=== PATIENT | female | born 1950 | race Caucasian/White ===

== ENCOUNTER 2017-02-03 04:14 | Emergency (ER) | payer MEDICARE, SELFPAY ==
[2017-02-03] MEDS ORDERED: Nitrofurantoin Monohydrate/Macrocrystalline 100 MG Cap PO ONE (05:00)
[2017-02-03] MEDS ORDERED: Phenazopyridine 200 MG Tab PO ONE (05:01)
--- NOTE | 2017-02-03 05:08 | EDM.PDOC ---
ED HPI GENERAL MEDICAL PROBLEM - General Chief Complaint: Genitourinary Problem Stated Complaint: HAVING TROUBLE URINATING Time Seen by Provider: 02/03/17 04:25 Source of Information: Reports: Patient History Limitations: Reports: No Limitations - History of Present Illness INITIAL COMMENTS - FREE TEXT/NARRATIVE: HISTORY AND PHYSICAL: History of present illness: [66-year-old female with a history of urinary tract infections now complaining of frequency urgency and dysuria. Patient does mention that she feels like her void is incomplete with the aforementioned urinary discomfort as described. Denies fevers chills sweats or shaking chills. No back pain. No abdominal pain. Patient otherwise feels well Review of systems: As per history of present illness and below otherwise all systems reviewed and negative. Past medical history: As per history of present illness and as reviewed below otherwise noncontributory. Surgical history: As per history of present illness and as reviewed below otherwise noncontributory. Social history: No reported history of drug or alcohol abuse. Family history: As per history of present illness and as reviewed below otherwise noncontributory. Physical exam: Well-appearing patient smiling comfortable appearing. Nontender abdomen and pelvis no CVA tenderness. Benign exam HEENT: Normocephalic, atraumatic, pupils normal and symmetrical, supple neck, no meningismus, normal color Lungs: Normal and symmetrical chest wall excursion bilateral with no tachypnea or increased work of breathing, grossly normal chest exam Heart: No tachycardia in triage Abdomen: Normal-appearing, nondistended, no visible mass or asymmetry Pelvis: Normal-appearing Genitourinary: Deferred Rectal exam: Deferred Extremities: Atraumatic, normal use and range of motion, no visible evidence of gross neurovascular compromise Neuro: Awake, alert, oriented. Normal and appropriate mental status. Cranial nerves grossly unremarkable. Motor function normal. Nonfocal neurologic exam. Diagnostics: [UA] Therapeutics: [Macrobid and Pyridium] Impression: [UTI] Signs and symptoms consistent with UTI. Patient with concern regarding incomplete void however postvoid residual 26 mL on bladder scan. UA clearly positive for infection. Macrobid and Pyridium doses given in ED and prescriptions dispensed. No further workup or treatment indicated patient agrees with outpatient follow-up. Strict return precautions given] Definitive disposition and diagnosis as appropriate pending reevaluation and review of above. Vaginal Pain Score (Numeric/FACES): 3 - Related Data Allergies Allergy/AdvReac Type Severity Reaction Status Date / Time cephalexin Allergy Other Verified 07/11/16 06:35 Iodine and Iodide Containing Allergy Hives Verified 07/11/16 06:35 Produc Sulfa (Sulfonamide Allergy Other Verified 07/11/16 06:35 Antibiotics) Home Meds: Home Meds Atenolol 25 mg PO DAILY #90 tablet 02/03/16 [Rx] Clopidogrel [Plavix] 75 mg PO DAILY #90 tablet 02/03/16 [Rx] Lisinopril 10 mg PO DAILY #90 tablet 02/03/16 [Rx] Nitroglycerin [Nitrostat] 0.4 mg SL Q5M PRN 07/11/16 [History] Aspirin [Adult Low Dose Aspirin EC] 81 mg PO DAILY 02/03/17 [History] Isosorbide Dinitrate 0 mg PO DAILY 02/03/17 [History] Nitrofurantoin Monohyd/M-Cryst [Macrobid 100 mg Capsule] 100 mg PO BID #20 capsule 02/03/17 [Rx] Phenazopyridine HCl [Pyridium] 200 mg PO TID #6 tablet 02/03/17 [Rx] amLODIPine [Norvasc] 0 mg PO DAILY 02/03/17 [History] Past Medical History HEENT History: Reports: Cataract Cardiovascular History: Reports: CAD, High Cholesterol, Hypertension, [place], Stents Respiratory History: Reports: None Gastrointestinal History: Reports: None Genitourinary History: Reports: UTI, Recurrent 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 History: Reports: Fracture Neurological History: Reports: None Psychiatric History: Reports: None Endocrine/Metabolic History: Reports: Diabetes, Type II Hematologic History: Reports: None Immunologic History: Reports: None Oncologic (Cancer) History: Reports: None Dermatologic History: Reports: None - Infectious Disease History Infectious Disease History: Reports: Chicken Pox, Measles - Past Surgical History HEENT Surgical History: Reports: Cataract Surgery Cardiovascular Surgical History: Reports: Coronary Artery Stent Social & Family History - Family History Family Medical History: Noncontributory - Tobacco Use Smoking Status *Q: Former Smoker Years of Tobacco use: 2 Packs/Tins Daily: 2 Used Tobacco, but Quit: Yes Month Tobacco Last Used: age 30 Tobacco Use Comment: smoked for 3 yrs at age 27 - Caffeine Use Caffeine Use: Reports: Coffee - Recreational Drug Use Recreational Drug Use: No - Living Situation & Occupation Living situation: Reports: Occupation: Employed ED ROS GENERAL - Review of Systems Review Of Systems: See Below (History of present illness) ED EXAM, GENERAL - Physical Exam Exam: See Below (History of present illness) Course - Vital Signs Last Recorded V/S: Last Vital Signs Temp 36.9 C 02/03/17 04:23 Pulse 88 02/03/17 04:23 Resp 16 02/03/17 04:23 BP 174/114 H 02/03/17 04:23 Pulse Ox 98 02/03/17 04:23 - Orders/Labs/Meds Labs: Laboratory Tests 02/03/17 Range/Units 04:40 Urine Color YELLOW Urine Appearance CLOUDY Urine pH 5.0 (5.0-8.0) Ur Specific [place] 1.015 (1.001-1.035) Urine Protein TRACE (NEGATIVE) mg/dL Urine Glucose (UA) NEGATIVE (NEGATIVE) mg/dL Urine Ketones NEGATIVE (NEGATIVE) mg/dL Urine Occult Blood MODERATE (NEGATIVE) Urine Nitrite NEGATIVE (NEGATIVE) Urine Bilirubin NEGATIVE (NEGATIVE) Urine Urobilinogen 0.2 (<2.0) EU/dL Ur Leukocyte Esterase LARGE (NEGATIVE) Urine RBC 4-5 (0-2/HPF) Urine WBC TO NUMEROUS TO COUNT H (0-5/HPF) Ur Epithelial Cells OCCASIONAL (NONE-FEW) Urine Bacteria 2+ H (NEGATIVE) Departure - Departure Time of Disposition: 05:02 Disposition: Home, Self-Care 01 Condition: Good Clinical Impression: UTI (urinary tract infection) - Discharge Information Referrals: Yaron Chaudhari DO [Primary Care Provider] - Forms: ED Department Discharge Additional Instructions: You have a urinary tract infection. Finish antibiotic as prescribed. Take Pyridium 3 times a day as prescribed. During play of fluids and follow-up with your DrAilyn in one to 2 days. Return immediately for new severe or worsening symptoms which might suggest treatment failure such as back pain with fevers and /or vomiting
[2017-02-03 05:27] VITALS: BP 136/73
== END 2017-02-03 05:24 | disposition home or self-care (01) ==
LOC: MW.ED 04:14
DX: N39.0 Urinary tract infection, site not specified (principal); I10 Essential (primary) hypertension; I25.2 Old myocardial infarction; I25.10 Atherosclerotic heart disease of native coronary artery without angina pectoris; E78.00 Pure hypercholesterolemia, unspecified; E11.9 Type 2 diabetes mellitus without complications; Z79.02 Long term (current) use of antithrombotics/antiplatelets; Z79.82 Long term (current) use of aspirin; Z79.899 Other long term (current) drug therapy; Z88.2 Allergy status to sulfonamides; Z88.1 Allergy status to other antibiotic agents; Z88.8 Allergy status to other drugs, medicaments and biological substances; Z98.49 Cataract extraction status, unspecified eye; Z95.5 Presence of coronary angioplasty implant and graft; Z87.891 Personal history of nicotine dependence
CPT/HCPCS: 81001; 87086; 99283; A9270; 87088; 87186

== ENCOUNTER 2017-09-06 15:08 | Observation (INO) | payer MEDICARE ==
[2017-09-06] MEDS ORDERED: Sodium Chloride 0.9% 1,000 ML IV ONE (15:21)
[2017-09-06] MEDS ORDERED: Aspirin 81 MG Tab.Chew PO ONE (15:21)
[2017-09-06] MEDS ORDERED: Nitroglycerin 0.4 MG Tab.SL SL ONE (15:21)
--- NOTE | 2017-09-06 15:24 | EDM.PDOC ---
ED HPI GENERAL MEDICAL PROBLEM - General Chief Complaint: Chest Pain Stated Complaint: CHEST PAINS Time Seen by Provider: 09/06/17 15:23 Source of Information: Reports: Patient - History of Present Illness INITIAL COMMENTS - FREE TEXT/NARRATIVE: HISTORY AND PHYSICAL: History of present illness: Patient presents with chest pain my private vehicle Pain is 8 out of 10 initially with no radiation arm neck or jaw patient describes possibly some diaphoresis she had taken 3 nitroglycerin at home pain improved to a 2 out of 10 she waited until nearly 4:00 until coming in however she is in no distress she states pain is nearly resolved at this time show significant cardiac history with previous MS and she reports 11 stents that were placed Nausea vomiting chills sweats no shortness of breath headache dizziness palpitation no bowel or urine symptoms ] Review of systems: As per history of present illness and below otherwise all systems reviewed and negative. Past medical history: As per history of present illness and as reviewed below otherwise noncontributory. Surgical history: As per history of present illness and as reviewed below otherwise noncontributory. Social history: No reported history of drug or alcohol abuse. Family history: As per history of present illness and as reviewed below otherwise noncontributory. Physical exam: HEENT: Atraumatic, normocephalic, pupils reactive, negative for conjunctival pallor or scleral icterus, mucous membranes moist, throat clear, neck supple, nontender, trachea midline. Lungs: Clear to auscultation, breath sounds equal bilaterally, chest nontender. Heart: S1S2, regular, negative for clicks, rubs, or JVD. Abdomen: Soft, nondistended, nontender. Negative for masses or hepatosplenomegaly. Negative for costovertebral tenderness. Pelvis: Stable nontender. Genitourinary: Deferred. Rectal: Deferred. Extremities: Atraumatic, negative for cords or calf pain. Neurovascular unremarkable. Neuro: Awake, alert, oriented. Cranial nerves II through XII unremarkable. Cerebellum unremarkable. Motor and sensory unremarkable throughout. Exam nonfocal. Diagnostics: [CBC CMP cardiac enzymes EKG Chest 1 view ] Therapeutics: [1 L normal saline bolus Aspirin 324 mg chewable Nitroglycerin not provided as patient had taken 3 and pain is much improved Patient will be admitted to obs /telemetry ] Impression: [Acute coronary syndrome ] Definitive disposition and diagnosis as appropriate pending reevaluation and review of above. Middle Chest Pain Score (Numeric/FACES): 4 - Related Data Allergies Allergy/AdvReac Type Severity Reaction Status Date / Time cephalexin Allergy Other Verified 09/06/17 15:39 Iodine and Iodide Containing Allergy Hives Verified 09/06/17 15:39 Produc morphine Allergy Nausea and Verified 09/06/17 15:39 Vomiting Sulfa (Sulfonamide Allergy Other Verified 09/06/17 15:39 Antibiotics) Home Meds: Home Meds Atenolol 25 mg PO DAILY #90 tablet 02/03/16 [Rx] Clopidogrel [Plavix] 75 mg PO DAILY #90 tablet 02/03/16 [Rx] Lisinopril 10 mg PO DAILY #90 tablet 02/03/16 [Rx] Nitroglycerin [Nitrostat] 0.4 mg SL Q5M PRN 07/11/16 [History] Aspirin [Adult Low Dose Aspirin EC] 81 mg PO DAILY 02/03/17 [History] Isosorbide Dinitrate 0 mg PO DAILY 02/03/17 [History] Nitrofurantoin Monohyd/M-Cryst [Macrobid 100 mg Capsule] 100 mg PO BID #20 capsule 02/03/17 [Rx] Phenazopyridine HCl [Pyridium] 200 mg PO TID #6 tablet 02/03/17 [Rx] amLODIPine [Norvasc] 0 mg PO DAILY 02/03/17 [History] Past Medical History HEENT History: Reports: Cataract Cardiovascular History: Reports: CAD, High Cholesterol, Hypertension, [place], Stents Respiratory History: Reports: None Gastrointestinal History: Reports: None Genitourinary History: Reports: UTI, Recurrent 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: Reports: 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 Neurological History: Reports: None Psychiatric History: Reports: None Endocrine/Metabolic History: Reports: Diabetes, Type II Hematologic History: Reports: None Immunologic History: Reports: None Oncologic (Cancer) History: Reports: None Dermatologic History: Reports: None - Infectious Disease History Infectious Disease History: Reports: Chicken Pox, Measles - Past Surgical History HEENT Surgical History: Reports: Cataract Surgery Cardiovascular Surgical History: Reports: Coronary Artery Stent Social & Family History - Family History Family Medical History: Noncontributory - Tobacco Use Smoking Status *Q: Former Smoker Years of Tobacco use: 2 Packs/Tins Daily: 2 Used Tobacco, but Quit: Yes Month Tobacco Last Used: age 30 - Caffeine Use Caffeine Use: Reports: Coffee - Recreational Drug Use Recreational Drug Use: No - Living Situation & Occupation Living situation: Reports: Occupation: Employed ED ROS GENERAL - Review of Systems Review Of Systems: ROS reveals no pertinent complaints other than HPI. ED EXAM, GENERAL - Physical Exam Exam: See Below Course - Vital Signs Last Recorded V/S: Last Vital Signs Temp 97.7 F 09/06/17 15:12 Pulse 65 09/06/17 16:03 Resp 14 09/06/17 16:03 BP 151/77 H 09/06/17 16:03 Pulse Ox 100 09/06/17 16:03 - Orders/Labs/Meds Orders: Active Orders 24 hr Category Date Time Status EKG Documentation Completion [RC] STAT Care 09/06/17 15:21 Active UA W/MICROSCOPIC [URIN] Stat Lab 09/06/17 16:35 Received Labs: Laboratory Tests 09/06/17 09/06/17 Range/Units 15:34 15:34 WBC 3.52 L (4.0-11.0) K/uL RBC 3.74 L (4.30-5.90) M/uL Hgb 13.4 (12.0-16.0) g/dL Hct 37.7 (36.0-46.0) % MCV 100.8 H (80.0-98.0) fL MCH 35.8 H (27.0-32.0) pg MCHC 35.5 (31.0-37.0) g/dL RDW Std Deviation 46.1 (28.0-62.0) fl RDW Coeff of Heide 13 (11.0-15.0) % Plt Count 116 L (150-400) K/uL MPV 9.30 (7.40-12.00) fL Neut % (Auto) 59.4 (48.0-80.0) % Lymph % (Auto) 28.7 (16.0-40.0) % Sac % (Auto) 6.8 (0.0-15.0) % Eos % (Auto) 4.8 (0.0-7.0) % Baso % (Auto) 0.3 (0.0-1.5) % Neut # (Auto) 2.1 (1.4-5.7) K/uL Lymph # (Auto) 1.0 (0.6-2.4) K/uL Sac # (Auto) 0.2 (0.0-0.8) K/uL Eos # (Auto) 0.2 (0.0-0.7) K/uL Baso # (Auto) 0.0 (0.0-0.1) K/uL Nucleated RBC % 0.0 /100WBC Nucleated RBCs # 0 K/uL Sodium 136 (136-146) mmol/L Potassium 4.6 (3.5-5.1) mmol/L Chloride 102 (98-110) mmol/L Carbon Dioxide 21 (21-31) mmol/L BUN 14 (6.0-23.0) mg/dL Creatinine 1.1 (0.6-1.5) mg/dL Est Cr Clr Drug Dosing 36.62 mL/min Estimated GFR (MDRD) 49.8 ml/min Glucose 167 H (60-110) mg/dL Calcium 9.3 (8.8-10.8) mg/dL Total Bilirubin 0.8 (0.1-1.5) mg/dL AST 156 H (5-40) IU/L ALT 121 H (8-54) IU/L Alkaline Phosphatase 73 (40-150) Creatine Kinase 224 (9-236) IU/L CK-MB (CK-2) 2.9 (0-6.6) ng/ml Troponin I < 0.10 (0.0-0.29) NG/ML Total Protein 7.3 (6.0-8.0) g/dL Albumin 4.3 (3.4-4.8) g/dL Globulin 3.0 (2.0-3.5) g/dL Albumin/Globulin Ratio 1.4 (1.3-2.8) Meds: Medications Discontinued Medications Generic Name Dose Route Start Last Admin Trade Name Freq PRN Reason Stop Dose Admin Aspirin 324 mg 09/06/17 15:21 09/06/17 15:37 Aspirin PO 09/06/17 15:22 324 mg ONETIME ONE Administration Sodium Chloride 1,000 mls @ 999 mls/hr 09/06/17 15:21 09/06/17 15:37 Normal Saline IV 09/06/17 16:21 999 mls/hr STAT ONE Administration Morphine Sulfate 2 mg 09/06/17 15:28 09/06/17 15:37 Morphine IVPUSH 09/06/17 15:29 2 mg ONETIME ONE Administration Nitroglycerin 0.4 mg 09/06/17 15:21 09/06/17 15:40 Nitrostat SL 09/06/17 15:22 Not Given ONETIME ONE Pantoprazole Sodium 80 mg 09/06/17 15:52 09/06/17 16:45 Protonix Iv IVPUSH 09/06/17 15:53 80 mg .BOLUS ONE Administration Departure - Departure Time of Disposition: 17:03 Disposition: Refer to Observation Condition: Fair Clinical Impression: ACS (acute coronary syndrome) - Discharge Information Referrals: Yaron Chaudhari DO [Primary Care Provider] - Forms: ED Department Discharge - My Orders Last 24 Hours: My Active Orders 09/06/17 15:21 EKG Documentation Completion [RC] STAT 09/06/17 16:35 UA W/MICROSCOPIC [URIN] Stat - Assessment/Plan Last 24 Hours: My Active Orders 09/06/17 15:21 EKG Documentation Completion [RC] STAT 09/06/17 16:35 UA W/MICROSCOPIC [URIN] Stat
[2017-09-06] MEDS ORDERED: Morphine 2 MG/ML Syringe IVPUSH ONE (15:28)
[2017-09-06] MEDS ORDERED: Pantoprazole 40 MG Vial IVPUSH ONE (15:52)
[2017-09-06 16:06] LABS: CHLORIDE,CL 102 mmol/L (98-110); SODIUM,NA 136 mmol/L (136-146)
--- NOTE | 2017-09-06 16:15 | CR ---
EXAMINATION: Portable chest radiograph. HISTORY: Pain. FINDINGS: The trachea is midline. The cardiomediastinal silhouette is within normal limits. No pulmonary infilt rates, effusions or pneumothorax. Osseous structures appear unremarkable. IMPRESSION: No acute cardiopulmonary process.
[2017-09-06] MEDS ORDERED: Morphine 2 MG/ML Syringe IVPUSH PRN (18:42)
--- NOTE | 2017-09-06 18:51 | PCM.HP ---
H&P History of Present Illness - General Date of Service: 09/06/17 Admit Problem/Dx: Admission Diagnosis/Problem Admission Diagnosis/Problem Acute coronary syndrome Source of Information: Patient History Limitations: Reports: No Limitations - History of Present Illness Initial Comments - Free Text/Narative: 66F with a past medical history of coronary artery disease, [place], multiple stent placement presented to the ER today with a chief complaint of chest pain. As per the patient, chest pain began at around 1pm this afternoon located centrally , non-radiating, rated an 8/10 on severity. She took 3 nitro's and that brought the pain down to a 2/10. She then arrived to ER via private vehicle. She was given aspirin in the ER. EKG unremarkable, first set of trop negative. As per the patient when asked, she denied any chest pain, palpitations, shortness of breath, numbness or tingling. Had no complaints. Middle Chest Pain Score (Numeric/FACES): 4 - Related Data Allergies/Adverse Reactions: Allergies Allergy/AdvReac Type Severity Reaction Status Date / Time cephalexin Allergy Other Verified 09/06/17 15:39 Iodine and Iodide Containing Allergy Hives Verified 09/06/17 15:39 Produc morphine Allergy Nausea and Verified 09/06/17 15:39 Vomiting Sulfa (Sulfonamide Allergy Other Verified 09/06/17 15:39 Antibiotics) Home Medications: Home Meds Atenolol 25 mg PO DAILY #90 tablet 02/03/16 [Rx] Clopidogrel [Plavix] 75 mg PO DAILY #90 tablet 02/03/16 [Rx] Lisinopril 10 mg PO DAILY #90 tablet 02/03/16 [Rx] Nitroglycerin [Nitrostat] 0.4 mg SL Q5M PRN 07/11/16 [History] Aspirin [Adult Low Dose Aspirin EC] 81 mg PO DAILY 02/03/17 [History] Isosorbide Dinitrate 0 mg PO DAILY 02/03/17 [History] Nitrofurantoin Monohyd/M-Cryst [Macrobid 100 mg Capsule] 100 mg PO BID #20 capsule 02/03/17 [Rx] Phenazopyridine HCl [Pyridium] 200 mg PO TID #6 tablet 02/03/17 [Rx] amLODIPine [Norvasc] 0 mg PO DAILY 02/03/17 [History] Past Medical History HEENT History: Reports: Cataract Cardiovascular History: Reports: CAD, High Cholesterol, Hypertension, [place], Stents Respiratory History: Reports: None Gastrointestinal History: Reports: None Genitourinary History: Reports: UTI, Recurrent 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 Neurological History: Reports: None Psychiatric History: Reports: None Endocrine/Metabolic History: Reports: Diabetes, Type II Hematologic History: Reports: None Immunologic History: Reports: None Oncologic (Cancer) History: Reports: None Dermatologic History: Reports: None - Infectious Disease History Infectious Disease History: Reports: Chicken Pox, Measles - Past Surgical History HEENT Surgical History: Reports: Cataract Surgery Cardiovascular Surgical History: Reports: Coronary Artery Stent Social & Family History - Family History Family Medical History: Noncontributory - Tobacco Use Smoking Status *Q: Former Smoker Years of Tobacco use: 2 Packs/Tins Daily: 2 Used Tobacco, but Quit: Yes Month Tobacco Last Used: at age 30 Second Hand Smoke Exposure: No - Caffeine Use Caffeine Use: Reports: Coffee - Recreational Drug Use Recreational Drug Use: No - Living Situation & Occupation Living situation: Reports: Occupation: Employed H&P Review of Systems - Review of Systems: Review Of Systems: See Below General: Reports: No Symptoms HEENT: Reports: No Symptoms Pulmonary: Reports: Shortness of Breath Cardiovascular: Reports: Chest Pain. Denies: Edema Gastrointestinal: Reports: No Symptoms Genitourinary: Reports: No Symptoms 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: Reports: No Symptoms Skin: Reports: No Symptoms Psychiatric: Reports: No Symptoms Neurological: Reports: No Symptoms Hematologic/Lymphatic: Reports: No Symptoms Immunologic: Reports: No Symptoms Exam - Exam Exam: See Below - Vital Signs Vital Signs: Last Vital Signs Temp 36.3 C 09/06/17 17:49 Pulse 61 09/06/17 17:49 Resp 16 09/06/17 17:49 BP 163/81 H 09/06/17 17:49 Pulse Ox 100 09/06/17 17:49 Weight: 82.781 kg - Exam General: Alert, Oriented HEENT: Conjunctiva Clear, EACs Clear, EOMI Neck: Supple, Trachea Midline Lungs: Clear to Auscultation, Normal Respiratory Effort Cardiovascular: Regular Rate, Regular Rhythm, Normal S1, Normal S2 GI/Abdominal Exam: Normal Bowel Sounds, Soft. No: Hepatomegaly, Splenomegaly Back Exam: Normal Inspection, Full Range of Motion, CVA Tenderness (R) Extremities: Normal Inspection, Normal Range of Motion, No Pedal Edema, Normal Capillary Refill Peripheral Pulses: 3+: Dorsalis Pedis (L), Dorsalis Pedis (R) Skin: Warm Neurological: Cranial Nerves Intact Neuro Extensive - Mental Status: Alert, Oriented x3 Psychiatric: Alert, Normal Affect, Normal Mood - Patient Data Result Diagrams: 09/06/17 15:34 09/06/17 15:34 *Q Meaningful Use (ADM) - VTE *Q VTE Criteria *Q: - Stroke *Q Stroke Criteria *Q: - AMI *Q AMI Criteria *Q: Problem List Initiated/Reviewed/Updated: Yes Orders Last 24hrs: Active Orders 24 hr Category Date Time Status Oxygen Therapy [RC] PRN Care 09/06/17 18:42 Ordered Telemetry Monitoring [Cardiac Monitoring] [RC] . Care 09/06/17 18:45 Ordered DIRECTED Up ad Darlene [RC] ASDIRECTED Care 09/06/17 18:42 Ordered VTE/DVT Education [RC] PER UNIT ROUTINE Care 09/06/17 18:42 Ordered Vital Signs [RC] Q4H Care 09/06/17 18:42 Ordered Heart Healthy Diet [DIET] Diet 09/06/17 Breakfast Ordered BASIC METABOLIC PANEL,BMP [CHEM] AM Lab 09/07/17 05:11 Ordered CBC WITH AUTO DIFF [HEME] AM Lab 09/07/17 05:11 Ordered TROPONIN I [CHEM] Q6H Lab 09/06/17 18:42 Ordered TROPONIN I [CHEM] Q6H Lab 09/07/17 00:42 Ordered TROPONIN I [CHEM] Q6H Lab 09/07/17 06:42 Ordered Enoxaparin [Lovenox] Med 09/06/17 18:45 Ordered 40 mg SUBCUT DAILY Morphine Med 09/06/17 18:42 Ordered 2 mg IVPUSH Q2H PRN Resuscitation Status Routine Resus Stat 09/06/17 18:42 Ordered Assessment/Plan Comment:: Assessment: #1. ACS rule out #2. Chest pain that is resolved #3. History of coronary artery disease, [place], multiple stent placement #4. Thrombocytopenia #5. Elevated LFTs Plan: #1. Admit to the floor for observation. Full code #2. Troponin 3 every 6 hours #3. Continuous telemetry. Vital signs per floor routine. Cardiac diet. Up ad darlene. Lovenox for DVT prophylaxis. #4. Continue home medications #5. Hepatitis panel, right upper quadrant ultrasound for elevated LFTs
[2017-09-06] MEDS ORDERED: Nitroglycerin 0.4 MG Tab.SL SL PRN (18:54)
[2017-09-06] MEDS: Enoxaparin 40 MG/0.4 ML Syringe SUBCUT SCH (19:28)
[2017-09-06] MEDS: Phenazopyridine 200 MG Tab PO SCH (22:07)
[2017-09-07 03:52] LABS: CHLORIDE,CL 109 mmol/L (98-110); SODIUM,NA 139 mmol/L (136-146)
[2017-09-07] MEDS: Phenazopyridine 200 MG Tab PO SCH (05:12)
[2017-09-07] MEDS ORDERED: Clopidogrel 75 MG Tab PO SCH (09:00)
[2017-09-07] MEDS ORDERED: Lisinopril 10 MG Tab PO SCH (09:00)
[2017-09-07] MEDS ORDERED: amLODIPine 5 MG Tab PO SCH (09:00)
[2017-09-07] MEDS ORDERED: Atenolol 25 MG Tab PO SCH (09:00)
[2017-09-07 09:23] VITALS: BP 128/71
[2017-09-07] MEDS: Enoxaparin 40 MG/0.4 ML Syringe SUBCUT SCH (09:23)
--- NOTE | 2017-09-07 16:50 | US ---
EXAM DATE: 09/06/17 PATIENT'S AGE: 66 Patient: TANJA NEVILLE Facility: [place], [place] Site . Site : [id number] Study: US Abdomen [id number]/[id number] 8:25:29 AM Ordering Physician: Jenae Nielson Final Report: INDICATION: Right upper quadrant pain. Elevated liver function tests. TECHNIQUE: Ultrasound abdomen limited. Sonographic images of the right upper quadrant were obtained using kwong-scale and color Doppler images. COMPARISON: CT abdomen pelvis August 27, 2017. FINDINGS: Liver: Normal in size. Hyperechoic echotexture. No masses. No intrahepatic biliary dilatation. Gallbladder: Multiple gallbladder stones are present. No sign of gallbladder wall thickening or pericholecystic fluid. Common bile duct: 4 mm. Pancreas: Not well visualized secondary to bowel gas. Right kidney: Normal in size. Normal echotexture and cortex. No masses, stones, or hydronephrosis. Vasculature: Proximal abdominal aorta and IVC are normal. IMPRESSION: Cholelithiasis without further evidence of cholecystitis. Hepatic steatosis. The remainder of the exam is unremarkable. Dictated by Jony Hunt MD @ Sep 07 2017 8:29AM (Electronic Signature) Report Signed by Proxy. CATHIE
--- NOTE | 2017-09-08 10:32 | PCM.DCSUM1 ---
Discharge Summary - Hospital Course Free Text/Narrative:: Admission date: September 06, 2017 Discharge date September 07, 2017 Admission diagnosis: #1. ACS rule out #2. History of coronary artery disease, SC, stent placement #3. Elevated LFTs Discharge diagnosis: #1. ACS ruled out #2. Cholelithiasis without gallbladder wall thickening #3. Elevated LFTs Hospital course: This is a 66-year-old female with an extensive cardiovascular history that presented to the emergency department on 06 September complaining of chest pain. This patient had initial negative troponins along with an unremarkable EKG and was admitted to hospital for observation. Troponins were trended and remained negative. After nitroglycerin was taken prior to arrival, the chest pain was resolved and did not recur throughout her hospital stay. She was discharged ultimately since she was symptomatic free and with reassuring labs. On arrival, the patient had elevated liver function tests all right upper quadrant ultrasound was ordered. This came back positive for multiple gallstones however without any cholecystitis. Given that this patient was not complaining of abdominal pain and to the patient's knowledge, this is a chronic finding. We can manage this issue as an outpatient. Follow-up: #1. Cardiology #2. Primary care provider Dr. Tellez Discharge instructions: Patient was advised to return to seek medical attention if she reexperiences chest pain, shortness of breath, palpitations, nausea or vomiting. - Discharge Data Discharge Date: 09/07/17 Discharge Disposition: Home, Self-Care 01 Condition: Fair - Patient Instructions Diet: Heart Healthy Diet Activity: As Tolerated Notify Provider of: Fever, Increased Pain, Swelling and Redness, Nausea and/or Vomiting - Discharge Plan Home Medications: Home Meds Atenolol 25 mg PO DAILY #90 tablet 02/03/16 [Rx] Clopidogrel [Plavix] 75 mg PO DAILY #90 tablet 02/03/16 [Rx] Lisinopril 10 mg PO DAILY #90 tablet 02/03/16 [Rx] Nitroglycerin [Nitrostat] 0.4 mg SL Q5M PRN 07/11/16 [History] Aspirin [Adult Low Dose Aspirin EC] 81 mg PO DAILY 02/03/17 [History] Isosorbide Dinitrate 0 mg PO DAILY 02/03/17 [History] Nitrofurantoin Monohyd/M-Cryst [Macrobid 100 mg Capsule] 100 mg PO BID #20 capsule 02/03/17 [Rx] Phenazopyridine HCl [Pyridium] 200 mg PO TID #6 tablet 02/03/17 [Rx] amLODIPine [Norvasc] 5 mg PO DAILY 02/03/17 [History] Patient Handouts: Acute Coronary Syndrome Referrals: [facility] [Outside] Delroy Tellez MD [Resident] - 09/16/17 2:30 pm - Discharge Summary/Plan Comment Discharge Summary/Plan Comment: Admission date: September 06, 2017 Discharge date September 07, 2017 Admission diagnosis: #1. ACS rule out #2. History of coronary artery disease, SC, stent placement #3. Elevated LFTs Discharge diagnosis: #1. ACS ruled out #2. Cholelithiasis without gallbladder wall thickening #3. Elevated LFTs Hospital course: This is a 66-year-old female with an extensive cardiovascular history that presented to the emergency department on 06 September complaining of chest pain. This patient had initial negative troponins along with an unremarkable EKG and was admitted to hospital for observation. Troponins were trended and remained negative. After nitroglycerin was taken prior to arrival, the chest pain was resolved and did not recur throughout her hospital stay. She was discharged ultimately since she was symptomatic free and with reassuring labs. On arrival, the patient had elevated liver function tests all right upper quadrant ultrasound was ordered. This came back positive for multiple gallstones however without any cholecystitis. Given that this patient was not complaining of abdominal pain and to the patient's knowledge, this is a chronic finding. We can manage this issue as an outpatient. Follow-up: #1. Cardiology #2. Primary care provider Dr. Tellez Discharge instructions: Patient was advised to return to seek medical attention if she reexperiences chest pain, shortness of breath, palpitations, nausea or vomiting. - Patient Data Vitals - Most Recent: Last Vital Signs Temp 36.6 C 09/07/17 08:00 Pulse 73 09/07/17 09:21 Resp 18 09/07/17 08:00 BP 128/71 09/07/17 09:22 Pulse Ox 99 09/07/17 08:00 Weight - Most Recent: 82.781 kg Med Orders - Current: Current Medications Discontinued Medications Amlodipine Besylate (Norvasc) 5 mg PO DAILY BEN Last Admin: 09/07/17 09:22 Dose: 5 mg Aspirin (Aspirin) 324 mg PO ONETIME ONE Stop: 09/06/17 15:22 Last Admin: 09/06/17 15:37 Dose: 324 mg Atenolol (Tenormin) 25 mg PO DAILY [facility] Last Admin: 09/07/17 09:21 Dose: 25 mg Clopidogrel Bisulfate (Plavix) 75 mg PO DAILY [facility] Last Admin: 09/07/17 09:21 Dose: 75 mg Enoxaparin Sodium (Lovenox) 40 mg SUBCUT DAILY [facility] Last Admin: 09/07/17 09:23 Dose: Not Given Sodium Chloride (Normal Saline) 1,000 mls @ 999 mls/hr IV STAT ONE Stop: 09/06/17 16:21 Last Admin: 09/06/17 15:37 Dose: 999 mls/hr Lisinopril (Prinivil) 10 mg PO DAILY [facility] Last Admin: 09/07/17 09:21 Dose: 10 mg Morphine Sulfate (Morphine) 2 mg IVPUSH ONETIME ONE Stop: 09/06/17 15:29 Last Admin: 09/06/17 15:37 Dose: 2 mg Morphine Sulfate (Morphine) 2 mg IVPUSH Q2H PRN PRN Reason: Pain (severe 7-10) Stop: 09/07/17 18:43 Nitroglycerin (Nitrostat) 0.4 mg SL ONETIME ONE Stop: 09/06/17 15:22 Last Admin: 09/06/17 15:40 Dose: Not Given Nitroglycerin (Nitrostat) 0.4 mg SL Q5M PRN PRN Reason: Chest Pain Pantoprazole Sodium (Protonix Iv) 80 mg IVPUSH .BOLUS ONE Stop: 09/06/17 15:53 Last Admin: 09/06/17 16:45 Dose: 80 mg Phenazopyridine HCl (Pyridium) 200 mg PO TID [facility] Last Admin: 09/07/17 05:12 Dose: Not Given *Q Meaningful Use (DIS) - VTE *Q VTE Criteria *Q: - Stroke *Q Stroke Criteria *Q: - AMI *Q AMI Criteria *Q:
== END 2017-09-07 11:24 | disposition home or self-care (01) ==
LOC: MW.ED 15:08 → MW.MS 17:12
PROVIDERS: ADMIT Internal Medicine; ATTEND Internal Medicine
DX: R07.9 Chest pain, unspecified (principal); K80.20 Calculus of gallbladder without cholecystitis without obstruction; R94.5 Abnormal results of liver function studies; I25.10 Atherosclerotic heart disease of native coronary artery without angina pectoris; I25.2 Old myocardial infarction; E78.00 Pure hypercholesterolemia, unspecified; I10 Essential (primary) hypertension; D69.6 Thrombocytopenia, unspecified; Z79.899 Other long term (current) drug therapy; Z79.02 Long term (current) use of antithrombotics/antiplatelets; Z79.82 Long term (current) use of aspirin; Z95.5 Presence of coronary angioplasty implant and graft; Z88.5 Allergy status to narcotic agent; Z88.2 Allergy status to sulfonamides; Z91.041 Radiographic dye allergy status; Z87.891 Personal history of nicotine dependence
CPT/HCPCS: 36415; 71045; 76705; 80048; 80053; 81001; 82550; 82553; 84484; 85025; 93005; 96361; 96372; 96374; 96375; 99285; A9270; C9113; G0378; J1650; J2270; J7040; 99284

== ENCOUNTER 2018-01-15 17:50 | Emergency (ER) | payer MEDICARE ==
--- NOTE | 2018-01-15 18:19 | EDM.PDOC ---
<Gertrudis Siegel - Last Filed: 01/15/18 18:53> ED HPI GENERAL MEDICAL PROBLEM - General Chief Complaint: Genitourinary Problem Stated Complaint: POSSIBLE UTI Time Seen by Provider: 01/15/18 18:14 - History of Present Illness INITIAL COMMENTS - FREE TEXT/NARRATIVE: HISTORY AND PHYSICAL: History of present illness: The patient is a 67-year-old female who follows in our clinics and has a history of having UTIs in the past and presents with dysuria and urgency as well as difficulty passing her urine that started yesterday. The patient denies any fever chills abdominal pain vomiting or diarrhea and has no back pain or flank pain and actually has no suprapubic pain either. She says that when she goes to the bathroom it is difficult initiating the stream and then when it starts to pass it is incredibly painful and bautista. She's not had hematuria. The patient went through menopause and did not have any gynecologic surgery that she admits to me. She's been drinking fluids and says this feels similar to prior episodes. Review of systems: As per history of present illness and below otherwise all systems reviewed and negative. Past medical history: As per history of present illness and as reviewed below otherwise noncontributory. Surgical history: As per history of present illness and as reviewed below otherwise noncontributory. Social history: No reported history of drug or alcohol abuse. Family history: As per history of present illness and as reviewed below otherwise noncontributory. Physical exam: General: Well-developed well-nourished female who is nontoxic and vital signs are reviewed by me HEENT: Atraumatic, normocephalic, negative for conjunctival pallor or scleral icterus, mucous membranes moist, throat clear, neck supple, nontender, trachea midline. Lungs: Clear to auscultation, breath sounds equal bilaterally, chest nontender. Heart: S1S2, regular rate and rhythm no overt murmurs Abdomen: Soft, nondistended, nontender. Lightly hypoactive bowel sounds Negative for costovertebral tenderness. Pelvis: Stable nontender. Genitourinary: Deferred. Rectal: Deferred. Extremities: Atraumatic, negative for cords or calf pain. Neurovascular unremarkable. Neuro: Awake, alert, oriented. Cranial nerves II through XII unremarkable. Cerebellum unremarkable. Motor and sensory unremarkable throughout. Exam nonfocal. Diagnostics: UA urine culture, bladder scan to be performed if patient is unable to produce urine for testing Therapeutics: Case endorsed to JOSE ALFREDO Vargas at 7 PM to follow-up testing results and disposition the patient with care plan. Impression: Dysuria Definitive disposition and diagnosis as appropriate pending reevaluation and review of above. - Related Data Allergies Allergy/AdvReac Type Severity Reaction Status Date / Time cephalexin Allergy Other Verified 01/15/18 18:04 Iodine and Iodide Containing Allergy Hives Verified 01/15/18 18:04 Produc morphine Allergy Nausea and Verified 01/15/18 18:04 Vomiting Sulfa (Sulfonamide Allergy Other Verified 01/15/18 18:04 Antibiotics) Home Meds: Home Meds Atenolol 25 mg PO DAILY #90 tablet 02/03/16 [Rx] Clopidogrel [Plavix] 75 mg PO DAILY #90 tablet 02/03/16 [Rx] Lisinopril 10 mg PO DAILY #90 tablet 02/03/16 [Rx] Nitroglycerin [Nitrostat] 0.4 mg SL Q5M PRN 07/11/16 [History] Aspirin [Adult Low Dose Aspirin EC] 81 mg PO DAILY 02/03/17 [History] Isosorbide Dinitrate 0 mg PO DAILY 02/03/17 [History] Nitrofurantoin Monohyd/M-Cryst [Macrobid 100 mg Capsule] 100 mg PO BID #20 capsule 02/03/17 [Rx] Phenazopyridine HCl [Pyridium] 200 mg PO TID #6 tablet 02/03/17 [Rx] amLODIPine [Norvasc] 5 mg PO DAILY 02/03/17 [History] Ciprofloxacin HCl [Cipro] 500 mg PO BID #10 tablet 01/15/18 [Rx] Past Medical History HEENT History: Reports: Cataract Cardiovascular History: Reports: CAD, High Cholesterol, Hypertension, [place], Stents Respiratory History: Reports: None Gastrointestinal History: Reports: None Genitourinary History: Reports: UTI, Recurrent 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: Reports: Fracture Neurological History: Reports: None Psychiatric History: Reports: None Endocrine/Metabolic History: Reports: Diabetes, Type II Hematologic History: Reports: None Immunologic History: Reports: None Oncologic (Cancer) History: Reports: None Dermatologic History: Reports: None - Infectious Disease History Infectious Disease History: Reports: Chicken Pox, Measles - Past Surgical History HEENT Surgical History: Reports: Cataract Surgery Cardiovascular Surgical History: Reports: Coronary Artery Stent Social & Family History - Family History Family Medical History: Noncontributory - Caffeine Use Caffeine Use: Reports: Coffee - Living Situation & Occupation Living situation: Reports: Occupation: Employed ED ROS GENERAL - Review of Systems Review Of Systems: ROS reveals no pertinent complaints other than HPI. ED EXAM, GENERAL - Physical Exam Exam: See Below (See dictation) Course - Vital Signs Last Recorded V/S: Last Vital Signs Temp 36.5 C 01/15/18 18:06 Pulse 76 01/15/18 18:06 Resp 18 01/15/18 18:06 BP 138/66 01/15/18 18:06 Pulse Ox 97 01/15/18 18:06 - Orders/Labs/Meds Orders: Active Orders 24 hr Category Date Time Status Bladder Scan [RC] ONETIME Care 01/15/18 18:39 Active CULTURE URINE [RM] Stat Lab 01/15/18 18:50 Ordered UA W/MICROSCOPIC [URIN] Stat Lab 01/15/18 18:50 Ordered Labs: Laboratory Tests 01/15/18 Range/Units 18:50 Urine Color YELLOW Urine Appearance CLEAR Urine pH 6.0 (5.0-8.0) Ur Specific [place] 1.015 (1.001-1.035) Urine Protein NEGATIVE (NEGATIVE) mg/dL Urine Glucose (UA) NEGATIVE (NEGATIVE) mg/dL Urine Ketones NEGATIVE (NEGATIVE) mg/dL Urine Occult Blood NEGATIVE (NEGATIVE) Urine Nitrite NEGATIVE (NEGATIVE) Urine Bilirubin NEGATIVE (NEGATIVE) Urine Urobilinogen 0.2 (<2.0) EU/dL Ur Leukocyte Esterase MODERATE (NEGATIVE) Urine RBC 0-1 (0-2/HPF) Urine WBC 12-15 (0-5/HPF) Ur Epithelial Cells MODERATE (NONE-FEW) Urine Bacteria 2+ H (NEGATIVE) Departure - Departure Disposition: Home, Self-Care 01 Condition: Good Clinical Impression: Dysuria, UTI, Urinary tract infectious disease - Discharge Information Prescriptions: Ciprofloxacin HCl [Cipro] 500 mg PO BID #10 tablet Instructions: Urinary Tract Infection, Adult Referrals: Delroy Tellez MD [Primary Care Provider] - Forms: ED Department Discharge Additional Instructions: The following information is given to patients seen in the emergency department who are being discharged to home. This information is to outline your options for follow-up care. We provide all patients seen in our emergency department with a follow-up referral. The need for follow-up, as well as the timing and circumstances, are variable depending upon the specifics of your emergency department visit. If you don't have a primary care physician on staff, we will provide you with a referral. We always advise you to contact your personal physician following an emergency department visit to inform them of the circumstance of the visit and for follow-up with them and/or the need for any referrals to a consulting specialist. The emergency department will also refer you to a specialist when appropriate. This referral assures that you have the opportunity for followup care with a specialist. All of these measure are taken in an effort to provide you with optimal care, which includes your followup. Under all circumstances we always encourage you to contact your private physician who remains a resource for coordinating your care. When calling for followup care, please make the office aware that this follow-up is from your recent emergency room visit. If for any reason you are refused follow-up, please contact the [facility] emergency department at and ask to speak to the emergency department charge nurse. [facility] Primary care- Internal Medicine and Family [address] [address] Please push hydration and contact her provider in the clinic for follow-up care next week. Return to ER as needed and as discussed. <Alicia Cabrera - Last Filed: 01/15/18 19:10> Departure - Departure Time of Disposition: 19:09 Condition: Good
[2018-01-15 19:19] VITALS: BP 142/87
== END 2018-01-15 19:21 | disposition home or self-care (01) ==
LOC: MW.ED 17:50
DX: N39.0 Urinary tract infection, site not specified (principal); E78.00 Pure hypercholesterolemia, unspecified; I10 Essential (primary) hypertension; I25.2 Old myocardial infarction; I25.10 Atherosclerotic heart disease of native coronary artery without angina pectoris; Z88.1 Allergy status to other antibiotic agents; Z91.09 Other allergy status, other than to drugs and biological substances; Z88.2 Allergy status to sulfonamides; Z88.5 Allergy status to narcotic agent; Z79.899 Other long term (current) drug therapy; Z87.440 Personal history of urinary (tract) infections
CPT/HCPCS: 81001; 87086; 99283

== ENCOUNTER 2019-04-17 02:34 | Observation (INO) | payer MEDICAID, MEDICARE ==
[2019-04-17] MEDS ORDERED: Aspirin 81 MG Tab.Chew PO ONE (02:35)
--- NOTE | 2019-04-17 02:37 | EDM.PDOC ---
ED HPI GENERAL MEDICAL PROBLEM - General Chief Complaint: Chest Pain Stated Complaint: CHEST PAIN Time Seen by Provider: 04/17/19 02:36 Source of Information: Reports: Patient - History of Present Illness INITIAL COMMENTS - FREE TEXT/NARRATIVE: HISTORY AND PHYSICAL: History of present illness: [Patient presents with chest pain 4 out of 10 radiating to the left shoulder, states initially pain awoke her from sleep at midnight tonight, she does have history of previous PA with stenting performed in 2007 She did take 2 nitroglycerin at home which improved symptoms, on arrival here she did receive aspirin and one more nitroglycerin with resolution of pain/ pressure no apparent distress no fever nausea vomiting chills sweats no current chest pain shortness breath no diaphoresis ] Review of systems: As per history of present illness and below otherwise all systems reviewed and negative. Past medical history: As per history of present illness and as reviewed below otherwise noncontributory. Surgical history: As per history of present illness and as reviewed below otherwise noncontributory. Social history: No reported history of drug or alcohol abuse. Family history: As per history of present illness and as reviewed below otherwise noncontributory. Physical exam: HEENT: Atraumatic, normocephalic, pupils reactive, negative for conjunctival pallor or scleral icterus, mucous membranes moist, throat clear, neck supple, nontender, trachea midline. Lungs: Clear to auscultation, breath sounds equal bilaterally, chest nontender. Heart: S1S2, regular, negative for clicks, rubs, or JVD. Abdomen: Soft, nondistended, nontender. Negative for masses or hepatosplenomegaly. Negative for costovertebral tenderness. Pelvis: Stable nontender. Genitourinary: Deferred. Rectal: Deferred. Extremities: Atraumatic, negative for cords or calf pain. Neurovascular unremarkable. Neuro: Awake, alert, oriented. Cranial nerves II through XII unremarkable. Cerebellum unremarkable. Motor and sensory unremarkable throughout. Exam nonfocal. Diagnostics: [CBC CMP troponin INR UA EKG Chest 1 view ] Therapeutics: [ normal saline Aspirin 324 mg chewable Sundeep glycerin Lovenox 100 mg subcutaneous ] Impression: Acute coronary syndrome Chronic history of baseline Definitive disposition and diagnosis as appropriate pending reevaluation and review of above. L Chest Pain Score (Numeric/FACES): 0 - Related Data Allergies Allergy/AdvReac Type Severity Reaction Status Date / Time cephalexin Allergy Other Verified 04/17/19 02:38 Iodine and Iodide Containing Allergy Hives Verified 04/17/19 02:38 Produc morphine Allergy Nausea and Verified 04/17/19 02:38 Vomiting Sulfa (Sulfonamide Allergy Other Verified 04/17/19 02:38 Antibiotics) Home Meds: Home Meds Atenolol 25 mg PO DAILY #90 tablet 02/03/16 [Rx] Clopidogrel [Plavix] 75 mg PO DAILY #90 tablet 02/03/16 [Rx] Lisinopril 10 mg PO DAILY #90 tablet 02/03/16 [Rx] Nitroglycerin [Nitrostat] 0.4 mg SL Q5M PRN 07/11/16 [History] Aspirin [Adult Low Dose Aspirin EC] 81 mg PO DAILY 02/03/17 [History] Isosorbide Dinitrate 0 mg PO DAILY 02/03/17 [History] Nitrofurantoin Monohyd/M-Cryst [Macrobid 100 mg Capsule] 100 mg PO BID #20 capsule 02/03/17 [Rx] Phenazopyridine HCl [Pyridium] 200 mg PO TID #6 tablet 02/03/17 [Rx] amLODIPine [Norvasc] 5 mg PO DAILY 02/03/17 [History] Ciprofloxacin HCl [Cipro] 500 mg PO BID #10 tablet 01/15/18 [Rx] Past Medical History HEENT History: Reports: Cataract Cardiovascular History: Reports: CAD, High Cholesterol, Hypertension, [place], Stents Respiratory History: Reports: None Gastrointestinal History: Reports: None Genitourinary History: Reports: UTI, Recurrent 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: Reports: 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 Neurological History: Reports: None Psychiatric History: Reports: None Endocrine/Metabolic History: Reports: Diabetes, Type II Hematologic History: Reports: None Immunologic History: Reports: None Oncologic (Cancer) History: Reports: None Dermatologic History: Reports: None - Infectious Disease History Infectious Disease History: Reports: Chicken Pox, Measles - Past Surgical History HEENT Surgical History: Reports: Cataract Surgery Cardiovascular Surgical History: Reports: Coronary Artery Stent Social & Family History - Family History Family Medical History: Noncontributory - Caffeine Use Caffeine Use: Reports: Coffee - Living Situation & Occupation Living situation: Reports: Occupation: Employed ED ROS GENERAL - Review of Systems Review Of Systems: See Below ED EXAM, GENERAL - Physical Exam Exam: See Below Course - Vital Signs Last Recorded V/S: Last Vital Signs Temp 97.6 F 04/17/19 02:35 Pulse 70 04/17/19 03:36 Resp 14 04/17/19 03:36 BP 107/71 04/17/19 03:36 Pulse Ox 98 04/17/19 03:36 - Orders/Labs/Meds Orders: Active Orders 24 hr Category Date Time Status EKG Documentation Completion [RC] STAT Care 04/17/19 02:36 Active Chest 1V Frontal [CR] Stat Exams 04/17/19 02:36 Taken UA RFX MARTA AND CULT IF INDIC [URIN] Stat Lab 04/17/19 02:36 Ordered Nitroglycerin [Nitrostat] Med 04/17/19 02:39 Active 0.4 mg SL Q5M PRN Sodium Chloride 0.9% [Normal Saline] 1,000 ml Med 04/17/19 02:45 Active IV STAT Medication Orders Sodium Chloride (Normal Saline) 1,000 mls @ 125 mls/hr IV STAT BEN Last Infusion: 04/17/19 03:38 Dose: 125 mls/hr Infusion: 04/17/19 03:21 Dose: 999 mls/hr Admin: 04/17/19 02:45 Dose: 125 mls/hr Nitroglycerin (Nitrostat) 0.4 mg SL Q5M PRN PRN Reason: Chest Pain Last Admin: 04/17/19 03:09 Dose: 0.4 mg Labs: Laboratory Tests 04/17/19 04/17/19 04/17/19 Range/Units 02:44 02:44 02:44 WBC 4.22 (4.0-11.0) K/uL RBC 3.63 L (4.30-5.90) M/uL Hgb 12.7 (12.0-16.0) g/dL Hct 35.7 L (36.0-46.0) % MCV 98.3 H (80.0-98.0) fL MCH 35.0 H (27.0-32.0) pg MCHC 35.6 (31.0-37.0) g/dL RDW Std Deviation 50.4 (28.0-62.0) fl RDW Coeff of [place] 14 (11.0-15.0) % Plt Count 140 L (150-400) K/uL MPV 9.20 (7.40-12.00) fL Neut % (Auto) 58.0 (48.0-80.0) % Lymph % (Auto) 28.4 (16.0-40.0) % [place] % (Auto) 5.0 (0.0-15.0) % Eos % (Auto) 8.1 H (0.0-7.0) % Baso % (Auto) 0.5 (0.0-1.5) % Neut # (Auto) 2.5 (1.4-5.7) K/uL Lymph # (Auto) 1.2 (0.6-2.4) K/uL [place] # (Auto) 0.2 (0.0-0.8) K/uL Eos # (Auto) 0.3 (0.0-0.7) K/uL Baso # (Auto) 0.0 (0.0-0.1) K/uL Nucleated RBC % 0.0 /100WBC Nucleated RBCs # 0 K/uL INR 0.98 Sodium 129 L (136-145) mmol/L Potassium 4.3 (3.5-5.1) mmol/L Chloride 94 L (98-107) mmol/L Carbon Dioxide 23.7 (21.0-32.0) mmol/L BUN 8 (7.0-18.0) mg/dL Creatinine 1.2 H (0.6-1.0) mg/dL Est Cr Clr Drug Dosing 32.68 mL/min Estimated GFR (MDRD) 44.8 ml/min Glucose 185 H (74-106) mg/dL Calcium 9.2 (8.5-10.1) mg/dL Total Bilirubin 0.6 (0.2-1.0) mg/dL AST 68 H (15-37) IU/L ALT 60 (14-63) IU/L Alkaline Phosphatase 63 (46-116) U/L Troponin I < 0.050 (0.000-0.056) ng/mL Total Protein 6.5 (6.4-8.2) g/dL Albumin 3.6 (3.4-5.0) g/dL Globulin 2.9 (2.6-4.0) g/dL Albumin/Globulin Ratio 1.2 (0.9-1.6) Lipase (73-393) U/L 04/17/19 Range/Units 02:44 WBC (4.0-11.0) K/uL RBC (4.30-5.90) M/uL Hgb (12.0-16.0) g/dL Hct (36.0-46.0) % MCV (80.0-98.0) fL MCH (27.0-32.0) pg MCHC (31.0-37.0) g/dL RDW Std Deviation (28.0-62.0) fl RDW Coeff of [place] (11.0-15.0) % Plt Count (150-400) K/uL MPV (7.40-12.00) fL Neut % (Auto) (48.0-80.0) % Lymph % (Auto) (16.0-40.0) % [place] % (Auto) (0.0-15.0) % Eos % (Auto) (0.0-7.0) % Baso % (Auto) (0.0-1.5) % Neut # (Auto) (1.4-5.7) K/uL Lymph # (Auto) (0.6-2.4) K/uL [place] # (Auto) (0.0-0.8) K/uL Eos # (Auto) (0.0-0.7) K/uL Baso # (Auto) (0.0-0.1) K/uL Nucleated RBC % /100WBC Nucleated RBCs # K/uL INR Sodium (136-145) mmol/L Potassium (3.5-5.1) mmol/L Chloride (98-107) mmol/L Carbon Dioxide (21.0-32.0) mmol/L BUN (7.0-18.0) mg/dL Creatinine (0.6-1.0) mg/dL Est Cr Clr Drug Dosing mL/min Estimated GFR (MDRD) ml/min Glucose (74-106) mg/dL Calcium (8.5-10.1) mg/dL Total Bilirubin (0.2-1.0) mg/dL AST (15-37) IU/L ALT (14-63) IU/L Alkaline Phosphatase (46-116) U/L Troponin I (0.000-0.056) ng/mL Total Protein (6.4-8.2) g/dL Albumin (3.4-5.0) g/dL Globulin (2.6-4.0) g/dL Albumin/Globulin Ratio (0.9-1.6) Lipase 143 (73-393) U/L Meds: Medications Generic Name Dose Route Start Last Admin Trade Name Freq PRN Reason Stop Dose Admin Sodium Chloride 1,000 mls @ 125 mls/hr 04/17/19 02:45 04/17/19 03:38 Normal Saline IV 125 mls/hr STAT BEN Infusion Nitroglycerin 0.4 mg 04/17/19 02:39 04/17/19 03:09 Nitrostat SL 0.4 mg Q5M PRN Administration Chest Pain Discontinued Medications Generic Name Dose Route Start Last Admin Trade Name Freq PRN Reason Stop Dose Admin Aspirin 324 mg 04/17/19 02:35 04/17/19 02:45 Aspirin PO 04/17/19 02:36 324 mg ONETIME ONE Administration Enoxaparin Sodium 100 mg 04/17/19 03:24 Lovenox SUBCUT 04/17/19 03:25 ONETIME ONE Departure - Departure Time of Disposition: 03:42 Disposition: Refer to Observation Condition: Fair Clinical Impression: Acute coronary syndrome - Discharge Information Forms: ED Department Discharge - My Orders Last 24 Hours: My Active Orders 04/17/19 02:36 EKG Documentation Completion [RC] STAT Chest 1V Frontal [CR] Stat UA RFX MARTA AND CULT IF INDIC [URIN] Stat 04/17/19 02:39 Nitroglycerin [Nitrostat] 0.4 mg SL Q5M PRN 04/17/19 02:45 Sodium Chloride 0.9% [Normal Saline] 1,000 ml IV STAT - Assessment/Plan Last 24 Hours: My Active Orders 04/17/19 02:36 EKG Documentation Completion [RC] STAT Chest 1V Frontal [CR] Stat UA RFX MARTA AND CULT IF INDIC [URIN] Stat 04/17/19 02:39 Nitroglycerin [Nitrostat] 0.4 mg SL Q5M PRN 04/17/19 02:45 Sodium Chloride 0.9% [Normal Saline] 1,000 ml IV STAT
[2019-04-17] MEDS ORDERED: Nitroglycerin 0.4 MG Tab.SL SL PRN ×2 (02:39→06:03)
[2019-04-17] MEDS ORDERED: Sodium Chloride 0.9% 1,000 ML IV SCH (02:45)
[2019-04-17 03:13] LABS: CHLORIDE,CL 94 mmol/L (98-107); SODIUM,NA 129 mmol/L (136-145)
[2019-04-17] MEDS ORDERED: Enoxaparin 100 MG/1 ML Syringe SUBCUT ONE (03:24)
--- NOTE | 2019-04-17 04:16 | CR ---
INDICATION: Left chest pain TECHNIQUE: Frontal view of the chest. COMPARISON: Frontal view chest 09/06/2017 FINDINGS/IMPRESSION: The lungs are clear. The cardiomediastinal silhouette is normal. There is no sizable pleural effusion or pneumothorax. The visualized osseous structures are unremarkable. Vascular calcifications projecting over the heart likely relate to the coronary arteries. Correlate for coronary artery disease. Dictated by Williams Thacker MD @ Apr 17 2019 4:15AM Signed by Dr. Williams Thacker @ Apr 17 2019 4:15AM
[2019-04-17] MEDS ORDERED: Acetaminophen 325 MG Tab PO PRN (05:45)
[2019-04-17] MEDS ORDERED: Levothyroxine 25 MCG Tab PO SCH (07:30)
[2019-04-17 08:40] LABS: HEMOGLOBIN A1C 6.3 % (4.5-6.2)
[2019-04-17] MEDS ORDERED: amLODIPine 5 MG Tab PO SCH (09:00)
[2019-04-17] MEDS ORDERED: Clopidogrel 75 MG Tab PO SCH (09:00)
[2019-04-17] MEDS ORDERED: Lisinopril 10 MG Tab PO SCH (09:00)
[2019-04-17] MEDS ORDERED: Aspirin 81 MG Tab.EC PO SCH (09:00)
[2019-04-17] MEDS ORDERED: Atenolol 25 MG Tab PO SCH (09:00)
[2019-04-17 09:48] LABS: CHLORIDE,CL 98 mmol/L (98-107); SODIUM,NA 131 mmol/L (136-145)
[2019-04-17] MEDS ORDERED: Insulin Aspart 100 Units/ML 3 ML Pen SUBCUT SCH (11:43)
--- NOTE | 2019-04-17 11:57 | PCM.HP.2 ---
H&P History of Present Illness - General Date of Service: 04/17/19 Admit Problem/Dx: Admission Diagnosis/Problem Admission Diagnosis/Problem Acute coronary syndrome Source of Information: Patient, Old Records (Dr Rhodes) History Limitations: Reports: No Limitations - History of Present Illness Initial Comments - Free Text/Narative: This 68 year old female with extensive history of CAD with 11 stents, last being placed 2017 in [place], HTN, and DM type 2 presented to the ED with complaints of chest pain that woke her up from sleep. She reports the pain was noted to her L shoulder region, with associated diaphoresis and lightheadedness. She took nitro x 2 at home, the first didn't help much, then the second did help. She arrived to the ED pain free. She denies taking Nitro often. This pain did not feel like her VT's in the past. She denies injury recently or repetitive movements. She gets short of breath with some activity, no chest pain. She reports being compliant with medications, but has not been taking Pravastatin. She denies headache, fevers or chills. Reports a mild cough intermittently recently, relates it to the change in weather. No shortness or breath or abdominal pain. No urinary concerns or diarrhea or constipation and no abdominal pain. Reports she dropped a walkie talkie on her L ankle and it is sore and bruised. She denies alcohol use, no recreational drug use. In the ED CBC WNL, NA 129, Cr 1.2, which is at baseline. CXR negative. VS stable. EKG SR with no acute signs of ischemia. ASA and Lovenox 1 mg/kg given in the ED. She will be admitted for chest pain rule out ACS. PCP, Dr Narvaez Wardrobe Coordinator, Dr Choudhary. L Chest Pain Score (Numeric/FACES): 0 - Related Data Allergies/Adverse Reactions: Allergies Allergy/AdvReac Type Severity Reaction Status Date / Time cephalexin Allergy Other Verified 04/17/19 05:33 Iodine and Iodide Containing Allergy Hives Verified 04/17/19 05:33 Produc morphine Allergy Nausea and Verified 04/17/19 05:33 Vomiting Sulfa (Sulfonamide Allergy Other Verified 04/17/19 05:33 Antibiotics) Home Medications: Home Meds Atenolol 25 mg PO DAILY #90 tablet 02/03/16 [Rx] Clopidogrel [Plavix] 75 mg PO DAILY #90 tablet 02/03/16 [Rx] Nitroglycerin [Nitrostat] 0.4 mg SL Q5M PRN 07/11/16 [History] Aspirin [Adult Low Dose Aspirin EC] 81 mg PO DAILY 02/03/17 [History] Levothyroxine 25 mcg PO ACBREAKFAST 04/17/19 [History] Lisinopril 20 mg PO DAILY 04/17/19 [History] amLODIPine Besylate [Amlodipine Besylate] 10 mg PO DAILY 04/17/19 [History] metFORMIN [Glucophage] 500 mg PO BIDMEALS #60 tab 04/17/19 [Rx] Past Medical History HEENT History: Reports: Cataract Cardiovascular History: Reports: CAD, High Cholesterol, Hypertension, VT, Stents , Other (See Below) Other Cardiovascular History: VT 2007 with 3 stents, last stenting 2016 Respiratory History: Reports: None. Denies: COPD, PE Gastrointestinal History: Reports: None. 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 Denies: CVA, TIA Psychiatric History: Reports: None Endocrine/Metabolic History: Reports: Other (See Below) Other Endocrine/Metabolic History: "prediabetes" Hematologic History: Reports: None Immunologic History: Reports: None Oncologic (Cancer) History: Reports: None Dermatologic History: Reports: None - Infectious Disease History Infectious Disease History: Reports: Chicken Pox, Measles - Past Surgical History HEENT Surgical History: Reports: Cataract Surgery Cardiovascular Surgical History: Reports: Coronary Artery Stent Other Cardiovascular Surgeries/Procedures: Coronary Artery stents 3 in 2007, 4 in 2011, 4 in 2016 Social & Family History - Family History Family Medical History: Noncontributory - Tobacco Use Smoking Status *Q: Former Smoker Used Tobacco, but Quit: Yes Month/Year Tobacco Last Used: 1974 Second Hand Smoke Exposure: No - Caffeine Use Caffeine Use: Reports: Coffee - Alcohol Use Days Per Week of Alcohol Use: 1 Number of Drinks Per Day: 1 Total Drinks Per Week: 1 - Recreational Drug Use Recreational Drug Use: No - Living Situation & Occupation Living situation: Reports: Occupation: Employed H&P Review of Systems - Review of Systems: Review Of Systems: See Below General: Reports: No Symptoms. Denies: Fever, Chills, Malaise HEENT: Reports: No Symptoms. Denies: Sinus Congestion, Sore Throat, Visual Changes Pulmonary: Denies: Shortness of Breath Cardiovascular: Reports: Chest Pain (chest pain free) Gastrointestinal: Reports: No Symptoms. Denies: Abdominal Pain, Black Stool, Bloody Stool, Nausea, Vomiting Genitourinary: Reports: No Symptoms. Denies: Dysuria, Frequency, Burning, Pain 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: Reports: No Symptoms Skin: Reports: No Symptoms Psychiatric: Reports: No Symptoms Neurological: Reports: No Symptoms Hematologic/Lymphatic: Reports: No Symptoms Immunologic: Reports: No Symptoms Exam - Exam Exam: See Below - Vital Signs Vital Signs: Last Vital Signs Temp 98.1 F 04/17/19 08:00 Pulse 68 04/17/19 09:08 Resp 16 04/17/19 08:00 BP 122/66 04/17/19 09:10 Pulse Ox 98 04/17/19 08:00 Weight: 85.684 kg - Exam Quality Assessment: DVT Prophylaxis. No: Supplemental Oxygen General: Alert, Oriented HEENT: Conjunctiva Clear, Mucosa Moist & Eugenio Saenz, Posterior Pharynx Clear Neck: Supple, Trachea Midline Lungs: Clear to Auscultation, Normal Respiratory Effort Cardiovascular: Regular Rate, Regular Rhythm, Normal S1, Normal S2. No: Systolic Murmur GI/Abdominal Exam: Normal Bowel Sounds, Soft, Non-Tender Extremities: Normal Inspection, Normal Range of Motion, Non-Tender, No Pedal Edema Skin: Ecchymosis (L ankle, reports dropping walkie talkie last week. sore to palpation.) Neuro Extensive - Mental Status: Alert, Oriented x3, Normal Mood/Affect Neuro Extensive - Motor, Sensory, Reflexes: CN II-XII Intact Psychiatric: Alert, Normal Affect, Normal Mood - Patient Data Lab Results Last 24 hrs: Laboratory Results - last 24 hr 04/17/19 04/17/19 04/17/19 Range/Units 02:44 02:44 02:44 WBC 4.22 (4.0-11.0) K/uL RBC 3.63 L (4.30-5.90) M/uL Hgb 12.7 (12.0-16.0) g/dL Hct 35.7 L (36.0-46.0) % MCV 98.3 H (80.0-98.0) fL MCH 35.0 H (27.0-32.0) pg MCHC 35.6 (31.0-37.0) g/dL RDW Std Deviation 50.4 (28.0-62.0) fl RDW Coeff of Heide 14 (11.0-15.0) % Plt Count 140 L (150-400) K/uL MPV 9.20 (7.40-12.00) fL Neut % (Auto) 58.0 (48.0-80.0) % Lymph % (Auto) 28.4 (16.0-40.0) % Garrett % (Auto) 5.0 (0.0-15.0) % Eos % (Auto) 8.1 H (0.0-7.0) % Baso % (Auto) 0.5 (0.0-1.5) % Neut # (Auto) 2.5 (1.4-5.7) K/uL Lymph # (Auto) 1.2 (0.6-2.4) K/uL Garrett # (Auto) 0.2 (0.0-0.8) K/uL Eos # (Auto) 0.3 (0.0-0.7) K/uL Baso # (Auto) 0.0 (0.0-0.1) K/uL Nucleated RBC % 0.0 /100WBC Nucleated RBCs # 0 K/uL INR 0.98 Sodium 129 L (136-145) mmol/L Potassium 4.3 (3.5-5.1) mmol/L Chloride 94 L (98-107) mmol/L Carbon Dioxide 23.7 (21.0-32.0) mmol/L BUN 8 (7.0-18.0) mg/dL Creatinine 1.2 H (0.6-1.0) mg/dL Est Cr Clr Drug Dosing 32.68 mL/min Estimated GFR (MDRD) 44.8 ml/min Glucose 185 H (74-106) mg/dL Hemoglobin A1c (4.5-6.2) % Calcium 9.2 (8.5-10.1) mg/dL Magnesium (1.8-2.4) mg/dL Total Bilirubin 0.6 (0.2-1.0) mg/dL AST 68 H (15-37) IU/L ALT 60 (14-63) IU/L Alkaline Phosphatase 63 (46-116) U/L Troponin I < 0.050 (0.000-0.056) ng/mL Total Protein 6.5 (6.4-8.2) g/dL Albumin 3.6 (3.4-5.0) g/dL Globulin 2.9 (2.6-4.0) g/dL Albumin/Globulin Ratio 1.2 (0.9-1.6) Triglycerides (0-200) mg/dL Cholesterol (50-200) mg/dL HDL Cholesterol (40-60) mg/dL Cholesterol/HDL Ratio (3.3-6.0) Lipase (73-393) U/L Urine Color Urine Appearance Urine pH (5.0-8.0) Ur Specific [place] (1.001-1.035) Urine Protein (NEGATIVE) mg/dL Urine Glucose (UA) (NEGATIVE) mg/dL Urine Ketones (NEGATIVE) mg/dL Urine Occult Blood (NEGATIVE) Urine Nitrite (NEGATIVE) Urine Bilirubin (NEGATIVE) Urine Urobilinogen (<2.0) EU/dL Ur Leukocyte Esterase (NEGATIVE) Urine RBC (0-2/HPF) Urine WBC (0-5/HPF) Ur Epithelial Cells (NONE-FEW) Urine Bacteria (NEGATIVE) 04/17/19 04/17/19 04/17/19 Range/Units 02:44 02:44 04:13 WBC (4.0-11.0) K/uL RBC (4.30-5.90) M/uL Hgb (12.0-16.0) g/dL Hct (36.0-46.0) % MCV (80.0-98.0) fL MCH (27.0-32.0) pg MCHC (31.0-37.0) g/dL RDW Std Deviation (28.0-62.0) fl RDW Coeff of Heide (11.0-15.0) % Plt Count (150-400) K/uL MPV (7.40-12.00) fL Neut % (Auto) (48.0-80.0) % Lymph % (Auto) (16.0-40.0) % Garrett % (Auto) (0.0-15.0) % Eos % (Auto) (0.0-7.0) % Baso % (Auto) (0.0-1.5) % Neut # (Auto) (1.4-5.7) K/uL Lymph # (Auto) (0.6-2.4) K/uL Garrett # (Auto) (0.0-0.8) K/uL Eos # (Auto) (0.0-0.7) K/uL Baso # (Auto) (0.0-0.1) K/uL Nucleated RBC % /100WBC Nucleated RBCs # K/uL INR Sodium (136-145) mmol/L Potassium (3.5-5.1) mmol/L Chloride (98-107) mmol/L Carbon Dioxide (21.0-32.0) mmol/L BUN (7.0-18.0) mg/dL Creatinine (0.6-1.0) mg/dL Est Cr Clr Drug Dosing mL/min Estimated GFR (MDRD) ml/min Glucose (74-106) mg/dL Hemoglobin A1c 6.3 H (4.5-6.2) % Calcium (8.5-10.1) mg/dL Magnesium (1.8-2.4) mg/dL Total Bilirubin (0.2-1.0) mg/dL AST (15-37) IU/L ALT (14-63) IU/L Alkaline Phosphatase (46-116) U/L Troponin I (0.000-0.056) ng/mL Total Protein (6.4-8.2) g/dL Albumin (3.4-5.0) g/dL Globulin (2.6-4.0) g/dL Albumin/Globulin Ratio (0.9-1.6) Triglycerides (0-200) mg/dL Cholesterol (50-200) mg/dL HDL Cholesterol (40-60) mg/dL Cholesterol/HDL Ratio (3.3-6.0) Lipase 143 (73-393) U/L Urine Color YELLOW Urine Appearance SLT CLOUDY Urine pH 5.5 (5.0-8.0) Ur Specific [place] 1.025 (1.001-1.035) Urine Protein NEGATIVE (NEGATIVE) mg/dL Urine Glucose (UA) NEGATIVE (NEGATIVE) mg/dL Urine Ketones NEGATIVE (NEGATIVE) mg/dL Urine Occult Blood NEGATIVE (NEGATIVE) Urine Nitrite NEGATIVE (NEGATIVE) Urine Bilirubin NEGATIVE (NEGATIVE) Urine Urobilinogen 0.2 (<2.0) EU/dL Ur Leukocyte Esterase SMALL H (NEGATIVE) Urine RBC 0-1 (0-2/HPF) Urine WBC 4-9 (0-5/HPF) Ur Epithelial Cells FEW (NONE-FEW) Urine Bacteria RARE (NEGATIVE) 04/17/19 04/17/19 Range/Units 09:07 09:07 WBC (4.0-11.0) K/uL RBC (4.30-5.90) M/uL Hgb (12.0-16.0) g/dL Hct (36.0-46.0) % MCV (80.0-98.0) fL MCH (27.0-32.0) pg MCHC (31.0-37.0) g/dL RDW Std Deviation (28.0-62.0) fl RDW Coeff of Heide (11.0-15.0) % Plt Count (150-400) K/uL MPV (7.40-12.00) fL Neut % (Auto) (48.0-80.0) % Lymph % (Auto) (16.0-40.0) % Garrett % (Auto) (0.0-15.0) % Eos % (Auto) (0.0-7.0) % Baso % (Auto) (0.0-1.5) % Neut # (Auto) (1.4-5.7) K/uL Lymph # (Auto) (0.6-2.4) K/uL Garrett # (Auto) (0.0-0.8) K/uL Eos # (Auto) (0.0-0.7) K/uL Baso # (Auto) (0.0-0.1) K/uL Nucleated RBC % /100WBC Nucleated RBCs # K/uL INR Sodium 131 L (136-145) mmol/L Potassium 4.7 (3.5-5.1) mmol/L Chloride 98 (98-107) mmol/L Carbon Dioxide 21.0 (21.0-32.0) mmol/L BUN 8 (7.0-18.0) mg/dL Creatinine 1.1 H (0.6-1.0) mg/dL Est Cr Clr Drug Dosing 35.65 mL/min Estimated GFR (MDRD) 49.5 ml/min Glucose 150 H (74-106) mg/dL Hemoglobin A1c (4.5-6.2) % Calcium 8.9 (8.5-10.1) mg/dL Magnesium 1.9 (1.8-2.4) mg/dL Total Bilirubin (0.2-1.0) mg/dL AST (15-37) IU/L ALT (14-63) IU/L Alkaline Phosphatase (46-116) U/L Troponin I < 0.050 (0.000-0.056) ng/mL Total Protein (6.4-8.2) g/dL Albumin (3.4-5.0) g/dL Globulin (2.6-4.0) g/dL Albumin/Globulin Ratio (0.9-1.6) Triglycerides 424 H (0-200) mg/dL Cholesterol 175 (50-200) mg/dL HDL Cholesterol 25 L (40-60) mg/dL Cholesterol/HDL Ratio 7.0 H (3.3-6.0) Lipase (73-393) U/L Urine Color Urine Appearance Urine pH (5.0-8.0) Ur Specific [place] (1.001-1.035) Urine Protein (NEGATIVE) mg/dL Urine Glucose (UA) (NEGATIVE) mg/dL Urine Ketones (NEGATIVE) mg/dL Urine Occult Blood (NEGATIVE) Urine Nitrite (NEGATIVE) Urine Bilirubin (NEGATIVE) Urine Urobilinogen (<2.0) EU/dL Ur Leukocyte Esterase (NEGATIVE) Urine RBC (0-2/HPF) Urine WBC (0-5/HPF) Ur Epithelial Cells (NONE-FEW) Urine Bacteria (NEGATIVE) Result Diagrams: 04/17/19 02:44 04/17/19 09:07 EKG INTERPRETATION EKG Date: 04/17/19 Rhythm: NSR P-Wave: Present QRS: Normal ST-T: Normal QT: Normal - Problem List (1) Chest pain SNOMED Code(s): 53056405 ICD Code: R07.9 - CHEST PAIN, UNSPECIFIED Status: Acute Priority: High Current Visit: No Qualifiers: Chest pain type: other chest pain Qualified Code(s): R07.89 - Other chest pain (2) CAD (coronary artery disease) SNOMED Code(s): 65437290 ICD Code: I25.10 - ATHSCL HEART DISEASE OF [place] CORONARY ARTERY W/O ANG PCTRS Status: Chronic Current Visit: Yes (3) Hx of myocardial infarction SNOMED Code(s): 748404482 ICD Code: I25.2 - OLD MYOCARDIAL INFARCTION Status: Chronic Current Visit : Yes (4) History of coronary artery stent placement SNOMED Code(s): 512737300, 990872455 ICD Code: Z95.5 - PRESENCE OF CORONARY ANGIOPLASTY IMPLANT AND GRAFT Status : Chronic Current Visit: Yes (5) Dyslipidemia SNOMED Code(s): 934064191 ICD Code: E78.5 - HYPERLIPIDEMIA, UNSPECIFIED Status: Chronic Current Visit: No (6) HTN (hypertension) SNOMED Code(s): 21983293 ICD Code: I10 - ESSENTIAL (PRIMARY) HYPERTENSION Status: Chronic Current Visit: No Qualifiers: Hypertension type: essential hypertension Qualified Code(s): I10 - Essential (primary) hypertension (7) Pre-diabetes SNOMED Code(s): 560720044 ICD Code: R73.03 - PREDIABETES Status: Chronic Current Visit: Yes Problem List Initiated/Reviewed/Updated: Yes Orders Last 24hrs: Active Orders 24 hr Category Date Time Status Admission Status [Patient Status] [ADT] Stat ADT 04/17/19 03:42 Active Blood Glucose Check, Bedside [RC] TIDAC Care 04/17/19 11:42 Ordered Communication Order [RC] ROUTINE Care 04/17/19 05:45 Active Telemetry Monitoring [Cardiac Monitoring] [RC] Q8H Care 04/17/19 05:30 Active Heart Healthy Diet [DIET] Diet 04/17/19 Breakfast Active CULTURE URINE [RM] Stat Lab 04/17/19 04:13 Received TROPONIN I [CHEM] Q6H Lab 04/17/19 14:40 Ordered Acetaminophen [Tylenol] Med 04/17/19 05:45 Active 650 mg PO Q6H PRN Aspirin [Halfprin] Med 04/17/19 09:00 Active 81 mg PO DAILY Atenolol [Tenormin] Med 04/17/19 09:00 Active 25 mg PO DAILY Clopidogrel [Plavix] Med 04/17/19 09:00 Active 75 mg PO DAILY Insulin Aspart [NovoLOG] Med 04/17/19 11:43 Ordered See Protocol SUBCUT TIDAC Levothyroxine Med 04/17/19 07:30 Active 25 mcg PO ACBREAKFAST Lisinopril [Prinivil] Med 04/17/19 09:00 Active 20 mg PO DAILY Nitroglycerin [Nitrostat] Med 04/17/19 06:03 Active 0.4 mg SL Q5M PRN Sodium Chloride 0.9% [Normal Saline] 1,000 ml Med 04/17/19 02:45 Active IV STAT amLODIPine [Norvasc] Med 04/17/19 09:00 Active 10 mg PO DAILY Medication Orders Acetaminophen (Tylenol) 650 mg PO Q6H PRN PRN Reason: Pain Amlodipine Besylate (Norvasc) 10 mg PO DAILY COUNT INCLUDES THE [facility] Last Admin: 04/17/19 09:10 Dose: 10 mg Aspirin (Halfprin) 81 mg PO DAILY COUNT INCLUDES THE [facility] Last Admin: 04/17/19 09:08 Dose: 81 mg Atenolol (Tenormin) 25 mg PO DAILY COUNT INCLUDES THE [facility] Last Admin: 04/17/19 09:08 Dose: 25 mg Clopidogrel Bisulfate (Plavix) 75 mg PO DAILY COUNT INCLUDES THE [facility] Last Admin: 04/17/19 09:10 Dose: 75 mg Sodium Chloride (Normal Saline) 1,000 mls @ 125 mls/hr IV STAT COUNT INCLUDES THE [facility] Last Infusion: 04/17/19 03:38 Dose: 125 mls/hr Infusion: 04/17/19 03:21 Dose: 999 mls/hr Admin: 04/17/19 02:45 Dose: 125 mls/hr Insulin Aspart (Novolog) 0 unit SUBCUT TIDAC COUNT INCLUDES THE [facility]; Protocol Levothyroxine Sodium (Levothyroxine) 25 mcg PO ACBREAKFAST COUNT INCLUDES THE [facility] Last Admin: 04/17/19 06:44 Dose: 25 mcg Lisinopril (Prinivil) 20 mg PO DAILY COUNT INCLUDES THE [facility] Last Admin: 04/17/19 09:08 Dose: 20 mg Nitroglycerin (Nitrostat) 0.4 mg SL Q5M PRN PRN Reason: Chest Pain Assessment/Plan Comment:: This 68 year old female admitted with chest pain 1. Chest pain: Slightly atypical, L shoulder, pain. Pain noted right and humeral head. Trend troponins, 2 negative so far. 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 no return of chest pain. Will set up outpatient NM stress test. 2. Hyponatremia: Improved after 1 bag of IVFs. 131, monitor as outpatient. 3. HTN: Stable Continue Atenolol and Norvasc 4. CAD; No further chest pain. Continue ASA and Plavix. Encouraged to start taking her Pravastatin as this is very important with her significant CAD. VTE prophylaxis: SCDs Dispo: likely later today after third troponin resulted, patient is very eager to go home. Discharge Plan: All troponins negative. No return of chest pain. Lipid panel obtained, Triglycerides 424, total cholesterol 175, HDL 25, LDL unable to be detected due to triglycerides. She was encouraged to start taking her Pravastatin, she verbalized she would start taking this. A1c 6.3 which is elevated from previous measures. I will restart Metformin, as with her high risk for continued cardiac events, it would be beneficial to keep blood sugars well controlled. She agreed with this. She is eager to go home today. I will set her up with NM stress test and follow up with cardiology and PCP. She is to return to ED or clinic if concerns should arise. - Mortality Measure Prognosis:: Good
[2019-04-17 13:09] VITALS: BP 158/74
== END 2019-04-17 16:24 | disposition home or self-care (01) ==
LOC: MW.ED 02:34 → MW.MS 03:42
PROVIDERS: ADMIT Internal Medicine; ATTEND Internal Medicine
DX: R07.89 Other chest pain (principal); E87.1 Hypo-osmolality and hyponatremia; I25.10 Atherosclerotic heart disease of native coronary artery without angina pectoris; I10 Essential (primary) hypertension; I25.2 Old myocardial infarction; E11.9 Type 2 diabetes mellitus without complications; E78.00 Pure hypercholesterolemia, unspecified; Z88.1 Allergy status to other antibiotic agents; Z88.5 Allergy status to narcotic agent; Z88.2 Allergy status to sulfonamides; Z91.041 Radiographic dye allergy status; Z95.5 Presence of coronary angioplasty implant and graft; Z87.891 Personal history of nicotine dependence; Z79.02 Long term (current) use of antithrombotics/antiplatelets; Z79.82 Long term (current) use of aspirin; Z79.84 Long term (current) use of oral hypoglycemic drugs; Z79.899 Other long term (current) drug therapy
CPT/HCPCS: 71045; 80048; 80053; 80061; 81001; 82962; 83036; 83690; 83735; 84484; 85025; 85610; 87086; 93005; 96360; 96361; 96372; 99285; A9270; J1650; J7040; G0378

== ENCOUNTER 2019-07-16 14:51 | Emergency (ER) | payer MEDICAID, MEDICARE ==
[2019-07-16 15:00] VITALS: PULSE 75
--- NOTE | 2019-07-16 15:23 | EDM.PDOC ---
ED HPI GENERAL MEDICAL PROBLEM - General Chief Complaint: Abdominal Pain Stated Complaint: ABDOMINAL PAIN Time Seen by Provider: 07/16/19 15:09 Source of Information: Reports: Patient History Limitations: Reports: No Limitations - History of Present Illness INITIAL COMMENTS - FREE TEXT/NARRATIVE: Presents reporting a 24-hour history of left lower quadrant pain. Patient states that the pain comes and goes and is only had 3 out of 10 but "I came in because I [place] so far from town". Had a brown formed stool today. No blood or mucus. No nausea, vomiting, fever, dysuria or vaginal symptoms. She has known cholelithiasis. She had a colonoscopy quite a few years ago, no mention of diverticulosis that she can recall. Right Upper Abdominal Pain Score (Numeric/FACES): 3 - Related Data Allergies Allergy/AdvReac Type Severity Reaction Status Date / Time cephalexin Allergy Other Verified 07/16/19 14:59 Iodine and Iodide Containing Allergy Hives Verified 07/16/19 14:59 Produc morphine Allergy Nausea and Verified 07/16/19 14:59 Vomiting Sulfa (Sulfonamide Allergy Other Verified 07/16/19 14:59 Antibiotics) Home Meds: Home Meds Atenolol 25 mg PO DAILY #90 tablet 02/03/16 [Rx] Clopidogrel [Plavix] 75 mg PO DAILY #90 tablet 02/03/16 [Rx] Nitroglycerin [Nitrostat] 0.4 mg SL Q5M PRN 07/11/16 [History] Aspirin [Adult Low Dose Aspirin EC] 81 mg PO DAILY 02/03/17 [History] Levothyroxine 25 mcg PO ACBREAKFAST 04/17/19 [History] Lisinopril 20 mg PO DAILY 04/17/19 [History] amLODIPine Besylate [Amlodipine Besylate] 10 mg PO DAILY 04/17/19 [History] metFORMIN [Glucophage] 500 mg PO BIDMEALS #60 tab 04/17/19 [Rx] Past Medical History HEENT History: Reports: Cataract Cardiovascular History: Reports: CAD, High Cholesterol, Hypertension, [place], Stents , Other (See Below) Other Cardiovascular History: [place] 2007 with 3 stents, last stenting 2016 Respiratory History: Reports: None Gastrointestinal History: Reports: None Genitourinary History: Reports: UTI, Recurrent 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: 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 History: Reports: Fracture Neurological History: Reports: None Psychiatric History: Reports: None Endocrine/Metabolic History: Reports: Other (See Below) Other Endocrine/Metabolic History: "prediabetes" Hematologic History: Reports: None Immunologic History: Reports: None Oncologic (Cancer) History: Reports: None Dermatologic History: Reports: None - Infectious Disease History Infectious Disease History: Reports: Chicken Pox, Measles, Mumps - Past Surgical History HEENT Surgical History: Reports: Cataract Surgery Cardiovascular Surgical History: Reports: Coronary Artery Stent Other Cardiovascular Surgeries/Procedures: Coronary Artery stents 3 in 2007, 4 in 2011, 4 in 2016 Social & Family History - Family History Family Medical History: Noncontributory - Tobacco Use Smoking Status *Q: Never Smoker - Caffeine Use Caffeine Use: Reports: Coffee - Recreational Drug Use Recreational Drug Use: No - Living Situation & Occupation Living situation: Reports: Occupation: Employed ED ROS GENERAL - Review of Systems Review Of Systems: Comprehensive ROS is negative, except as noted in HPI. ED EXAM, GI/ABD - Physical Exam Exam: See Below Exam Limited By: No Limitations General Appearance: Alert, No Apparent Distress Ears: Normal External Exam Nose: Normal Inspection Throat/Mouth: Normal Inspection Head: Atraumatic, Normocephalic Neck: Normal Inspection Respiratory/Chest: No Respiratory Distress, Lungs Clear, Normal Breath Sounds Cardiovascular: Normal Peripheral Pulses, Regular Rate, Rhythm, No Murmur GI/Abdominal Exam: Normal Bowel Sounds, Soft, No Distention, Tender (Left lower quadrant only). No: Rigid, Rebound Extremities: Other (Nonpitting ankle edema) Neurological: Alert, Oriented Psychiatric: Normal Affect, Normal Mood Skin Exam: Warm, Dry, Intact, Normal Color, No Rash Lymphatic: No Adenopathy Course - Vital Signs Last Recorded V/S: Last Vital Signs Temp 36.2 C 07/16/19 14:58 Pulse 75 07/16/19 14:58 Resp 18 07/16/19 14:58 BP 149/63 H 07/16/19 14:58 Pulse Ox 98 07/16/19 14:58 - Orders/Labs/Meds Orders: Active Orders 24 hr Category Date Time Status UA RFX MARTA AND CULT IF INDIC [URIN] Stat Lab 07/16/19 15:19 Ordered Labs: Laboratory Tests 07/16/19 07/16/19 Range/Units 15:27 15:27 WBC 4.45 (4.0-11.0) K/uL RBC 3.85 L (4.30-5.90) M/uL Hgb 12.6 (12.0-16.0) g/dL Hct 36.3 (36.0-46.0) % MCV 94.3 (80.0-98.0) fL MCH 32.7 H (27.0-32.0) pg MCHC 34.7 (31.0-37.0) g/dL RDW Std Deviation 44.9 (28.0-62.0) fl RDW Coeff of Heide 13 (11.0-15.0) % Plt Count 158 (150-400) K/uL MPV 8.90 (7.40-12.00) fL Neut % (Auto) 59.4 (48.0-80.0) % Lymph % (Auto) 25.6 (16.0-40.0) % Walton % (Auto) 7.2 (0.0-15.0) % Eos % (Auto) 7.4 H (0.0-7.0) % Baso % (Auto) 0.4 (0.0-1.5) % Neut # (Auto) 2.6 (1.4-5.7) K/uL Lymph # (Auto) 1.1 (0.6-2.4) K/uL Walton # (Auto) 0.3 (0.0-0.8) K/uL Eos # (Auto) 0.3 (0.0-0.7) K/uL Baso # (Auto) 0.0 (0.0-0.1) K/uL Nucleated RBC % 0.0 /100WBC Nucleated RBCs # 0 K/uL Sodium 132 L (136-145) mmol/L Potassium 4.6 (3.5-5.1) mmol/L Chloride 98 (98-107) mmol/L Carbon Dioxide 25.8 (21.0-32.0) mmol/L BUN 17 (7.0-18.0) mg/dL Creatinine 1.5 H (0.6-1.0) mg/dL Est Cr Clr Drug Dosing 26.14 mL/min Estimated GFR (MDRD) 34.6 ml/min Glucose 160 H (74-106) mg/dL Calcium 9.0 (8.5-10.1) mg/dL Total Bilirubin 0.5 (0.2-1.0) mg/dL AST 37 (15-37) IU/L ALT 34 (14-63) IU/L Alkaline Phosphatase 52 (46-116) U/L Total Protein 7.2 (6.4-8.2) g/dL Albumin 3.9 (3.4-5.0) g/dL Globulin 3.3 (2.6-4.0) g/dL Albumin/Globulin Ratio 1.2 (0.9-1.6) - Re-Assessments/Exams Free Text/Narrative Re-Assessment/Exam: 07/16/19 16:26 Feeling better. Departure - Departure Time of Disposition: 16:26 Disposition: Home, Self-Care 01 Condition: Good Clinical Impression: Abdominal pain - Discharge Information Referrals: PCP,None [Primary Care Provider] - [facility] [Outside] [facility] [Outside] Forms: ED Department Discharge Additional Instructions: The following information is given to patients seen in the emergency department who are being discharged to home. This information is to outline your options for follow-up care. We provide all patients seen in our emergency department with a follow-up referral. The need for follow-up, as well as the timing and circumstances, are variable depending upon the specifics of your emergency department visit. If you don't have a primary care physician on staff, we will provide you with a referral. We always advise you to contact your personal physician following an emergency department visit to inform them of the circumstance of the visit and for follow-up with them and/or the need for any referrals to a consulting specialist. The emergency department will also refer you to a specialist when appropriate. This referral assures that you have the opportunity for follow-up care with a specialist. All of these measure are taken in an effort to provide you with optimal care, which includes your follow-up. Under all circumstances we always encourage you to contact your private physician who remains a resource for coordinating your care. When calling for follow-up care, please make the office aware that this follow-up is from your recent emergency room visit. If for any reason you are refused follow-up, please contact the [facility] Emergency Department at and asked to speak to the emergency department charge nurse. 1. No cause for your symptoms has been found. Please follow-up in primary care. - My Orders Last 24 Hours: My Active Orders 07/16/19 15:19 UA RFX MARTA AND CULT IF INDIC [URIN] Stat - Assessment/Plan Last 24 Hours: My Active Orders 07/16/19 15:19 UA RFX MARTA AND CULT IF INDIC [URIN] Stat
[2019-07-16 15:54] LABS: CARBON DIOXIDE,CO2 25.8 mmol/L (21.0-32.0); POTASSIUM,K 4.6 mmol/L (3.5-5.1)
--- NOTE | 2019-07-16 16:17 | CT ---
INDICATION: Left lower quadrant pain starting yesterday. TECHNIQUE: CT abdomen and pelvis without contrast. COMPARISON: CT abdomen and pelvis 08/27/2017 FINDINGS: Lower chest: Unremarkable. Liver: Unremarkable. Spleen: Unremarkable. Pancreas: Unremarkable. Gallbladder and bile ducts: Cholelithiasis in a contracted gallbladder. No biliary ductal dilatation. Kidneys: Unremarkable. No kidney or ureteral stones and no hydronephrosis. Adrenal glands: Unremarkable. GI tract: No obstruction or inflammatory changes involving the GI tract. The appendix is normal in appearance. Tiny fat containing umbilical hernia. No free air or free fluid. Vascular structures: Atherosclerotic disease. No abdominal aortic aneurysm. Lymph nodes: Unremarkable. Pelvic Organs: Unremarkable. Bones: Degenerative changes of the spine and pelvis. IMPRESSION: No acute intra-abdominal or pelvic abnormality. Dictated by Norman Sequeira MD @ 07/16/2019 4:15:08 PM Dictated by: Norman Sequiera MD @ 07/16/2019 16:15:22 (Electronically Signed)
[2019-07-16 16:45] VITALS: BP 146/71
== END 2019-07-16 16:35 | disposition home or self-care (01) ==
LOC: MW.ED 14:51
DX: R10.32 Left lower quadrant pain (principal); I25.2 Old myocardial infarction; I25.10 Atherosclerotic heart disease of native coronary artery without angina pectoris; I10 Essential (primary) hypertension; E78.00 Pure hypercholesterolemia, unspecified; Z79.02 Long term (current) use of antithrombotics/antiplatelets; Z79.82 Long term (current) use of aspirin; Z79.899 Other long term (current) drug therapy; Z88.1 Allergy status to other antibiotic agents; Z88.2 Allergy status to sulfonamides; Z88.6 Allergy status to analgesic agent; Z88.8 Allergy status to other drugs, medicaments and biological substances; Z91.041 Radiographic dye allergy status; Z95.5 Presence of coronary angioplasty implant and graft
CPT/HCPCS: 36415; 74176; 74176-26; 80053; 85025; 99283; 99284-25

== ENCOUNTER 2019-09-11 06:38 | Observation (INO) | payer MEDICARE ==
[2019-09-11] MEDS ORDERED: Aspirin 81 MG Tab.Chew PO ONE (06:49)
[2019-09-11] MEDS ORDERED: Nitroglycerin 0.4 MG Tab.SL SL PRN (06:49)
--- NOTE | 2019-09-11 06:51 | EDM.PDOC ---
ED HPI GENERAL MEDICAL PROBLEM - General Chief Complaint: Chest Pain Stated Complaint: CHEST PAIN Time Seen by Provider: 09/11/19 06:43 Source of Information: Reports: Patient History Limitations: Reports: No Limitations - History of Present Illness INITIAL COMMENTS - FREE TEXT/NARRATIVE: HISTORY OF PRESENT ILLNESS: Patient is a 68-year-old female with history of coronary artery disease, status post stents x11, last stent in 2016, presents to the ED with chest pain. Chest pain began at 330 this morning and is described as waxing and waning chest heaviness across the anterior chest both right-sided and left-sided without other radiation. Pain is 8 out of 10 at maximum presently is 4 out of 10. Prior to chest pain starting had 2 episodes of posttussive emesis. States she has had a cough for the past 2 months which is improving. Denies any dyspnea. No hemoptysis. No syncope. Denies any diaphoresis. Tried to take a nitroglycerin this morning but immediately had emesis following. Did not take aspirin today. Community Health Planning Director is Dr. Rhodes REVIEW OF SYSTEMS: Other than the symptoms associated with the present events, the following is reported with regard to recent health: General: (-) fever. HENT: (-) congestion. Respiratory: (+) cough. Cardiovascular: (+) chest pain. GI: (-) abdominal pain. (+) post tussive emesis. : (-) urinary complaints. 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: (-) other aches or pains. Endocrine: (-) generalized weakness. Neurological: (-) localized weakness. Skin: (-) rash PAST MEDICAL HISTORY: reviewed as per nursing notes SOCIAL HISTORY: reviewed as per nursing notes, MEDICATIONS: Per nurse's note ALLERGIES: Per nurse's note, reviewed by me PHYSICAL EXAMINATION: GENERALIZED APPEARANCE: well developed, well nourished in mild distress VITAL SIGNS: Per nurse's note, reviewed by me SKIN: Warm, dry; (-) cyanosis; (-) rash. HEAD: (-) scalp swelling, (-) tenderness. EYES: (-) conjunctival pallor, (-) scleral icterus. ENMT: (-) stridor; mucous membranes moist. NECK: (-) tenderness, (-) stiffness, CHEST AND RESPIRATORY: (-) rales, (-) rhonchi, (-) wheezes; breath sounds equal bilaterally. No reproducible chest wall tenderness HEART AND CARDIOVASCULAR: (-) irregularity; (-) murmur, (-) gallop. ABDOMEN AND GI: Soft; (-) tenderness, (-) guarding, (-) rebound, (-) palpable masses, EXTREMITIES: (-) deformity, (-) edema. (-) calf tenderness or palpable cord NEURO AND PSYCH: Alert. Cranial nerves grossly intact; strength symmetric. gait steady DIAGNOSTICS: EKG: nsr at [address] elevation. t wave inversion in iii, avf, v2- 4. CXR ordered CBC, CMP, Troponin ordered EMERGENCY DEPARTMENT COURSE AND TREATMENT: Patient's condition remained stable during Emergency Department evaluation. Given ASA, NTG upon arrival. Given Fentanyl for continued pain. Care transferred to DR. Andrews pending diagnostics as above and disposition, likely admission. chest pain Pain Score (Numeric/FACES): 4 - Related Data Allergies Allergy/AdvReac Type Severity Reaction Status Date / Time cephalexin Allergy Other Verified 09/11/19 09:58 Iodine and Iodide Containing Allergy Hives Verified 09/11/19 09:58 Produc morphine Allergy Nausea and Verified 09/11/19 09:58 Vomiting Sulfa (Sulfonamide Allergy Other Verified 09/11/19 09:58 Antibiotics) Home Meds: Home Meds Clopidogrel [Plavix] 75 mg PO DAILY #90 tablet 02/03/16 [Rx] atenoloL [Atenolol] 25 mg PO DAILY #90 tablet 02/03/16 [Rx] Nitroglycerin [Nitrostat] 0.4 mg SL Q5M PRN 07/11/16 [History] Aspirin [Adult Low Dose Aspirin EC] 81 mg PO DAILY 02/03/17 [History] Levothyroxine 25 mcg PO ACBREAKFAST 04/17/19 [History] Lisinopril 20 mg PO DAILY 04/17/19 [History] amLODIPine Besylate [Amlodipine Besylate] 10 mg PO DAILY 04/17/19 [History] Ezetimibe 10 mg PO BEDTIME 09/11/19 [History] metFORMIN [Glucophage] 500 mg PO DAILY 09/11/19 [History] Past Medical History HEENT History: Reports: Cataract Cardiovascular History: Reports: CAD, High Cholesterol, Hypertension, [place], Stents , Other (See Below) Other Cardiovascular History: [place] 2007 with 3 stents, last stenting 2017 Respiratory History: Reports: None Gastrointestinal History: Reports: None Genitourinary History: Reports: UTI, Recurrent [employer]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: Reports: Fracture Neurological History: Reports: None Psychiatric History: Reports: None Endocrine/Metabolic History: Reports: Other (See Below) Other Endocrine/Metabolic History: "prediabetes" Hematologic History: Reports: None Immunologic History: Reports: None Oncologic (Cancer) History: Reports: None Dermatologic History: Reports: None - Infectious Disease History Infectious Disease History: Reports: Chicken Pox, Measles, Mumps - Past Surgical History HEENT Surgical History: Reports: Cataract Surgery Cardiovascular Surgical History: Reports: Coronary Artery Stent Other Cardiovascular Surgeries/Procedures: Coronary Artery stents 3 in 2007, 4 in 2011, 4 in 2016 Social & Family History - Family History Family Medical History: Noncontributory - Caffeine Use Caffeine Use: Reports: Coffee - Living Situation & Occupation Living situation: Reports: Occupation: Employed ED ROS GENERAL - Review of Systems Review Of Systems: See Below (see dictation) ED EXAM, GENERAL - Physical Exam Exam: See Below (see dictation) Course - Vital Signs Last Recorded V/S: Last Vital Signs Temp 97.6 F 09/12/19 00:00 Pulse 71 09/12/19 00:00 Resp 18 09/12/19 00:00 BP 102/60 09/12/19 00:00 Pulse Ox 97 09/12/19 00:00 - Orders/Labs/Meds Orders: Active Orders 24 hr Category Date Time Status Admission Status [Patient Status] [ADT] Stat ADT 09/11/19 07:52 Active Cardiac Monitoring [RC] Q8H Care 09/11/19 06:49 Active Nitroglycerin [Nitrostat] Med 09/11/19 06:49 Active 0.4 mg SL Q5M PRN Medication Orders Acetaminophen (Tylenol) 650 mg PO Q4H PRN PRN Reason: Pain/Fever Amlodipine Besylate (Norvasc) 10 mg PO DAILY [facility] Last Admin: 09/11/19 12:50 Dose: 10 mg Aspirin (Halfprin) 81 mg PO DAILY BEN Atenolol (Tenormin) 25 mg PO DAILY BEN Last Admin: 09/11/19 12:51 Dose: 25 mg Benzonatate (Tessalon Perles) 100 mg PO Q6H PRN PRN Reason: Cough Last Admin: 09/11/19 22:05 Dose: 100 mg Clopidogrel Bisulfate (Plavix) 75 mg PO DAILY [facility] Last Admin: 09/11/19 12:51 Dose: 75 mg Ezetimibe (Zetia) 10 mg PO BEDTIME [facility] Last Admin: 09/11/19 20:51 Dose: 10 mg Insulin Aspart (Novolog) 0 unit SUBCUT TIDAC [facility]; Protocol Last Admin: 09/11/19 17:47 Dose: Admin: 09/11/19 12:53 Dose: Levothyroxine Sodium (Levothyroxine) 25 mcg PO ACBREAKFAST [facility] Last Admin: 09/11/19 12:52 Dose: 25 mcg Lisinopril (Prinivil) 20 mg PO DAILY [facility] Last Admin: 09/11/19 12:47 Dose: 20 mg Nitroglycerin (Nitrostat) 0.4 mg SL Q5M PRN PRN Reason: Chest Pain Stop: 09/12/19 06:50 Last Admin: 09/11/19 07:06 Dose: 0.4 mg Ondansetron HCl (Zofran) 4 mg IVPUSH Q4H PRN PRN Reason: Nausea/Vomiting Labs: Laboratory Tests 09/11/19 09/11/19 Range/Units 06:56 06:56 WBC 4.86 (4.0-11.0) K/uL RBC 3.92 L (4.30-5.90) M/uL Hgb 12.9 (12.0-16.0) g/dL Hct 36.4 (36.0-46.0) % MCV 92.9 (80.0-98.0) fL MCH 32.9 H (27.0-32.0) pg MCHC 35.4 (31.0-37.0) g/dL RDW Std Deviation 49.5 (28.0-62.0) fl RDW Coeff of Heide 15 (11.0-15.0) % Plt Count 138 L (150-400) K/uL MPV 9.20 (7.40-12.00) fL Neut % (Auto) 65.2 (48.0-80.0) % Lymph % (Auto) 21.2 (16.0-40.0) % Harmon % (Auto) 6.0 (0.0-15.0) % Eos % (Auto) 7.2 H (0.0-7.0) % Baso % (Auto) 0.4 (0.0-1.5) % Neut # (Auto) 3.2 (1.4-5.7) K/uL Lymph # (Auto) 1.0 (0.6-2.4) K/uL Harmon # (Auto) 0.3 (0.0-0.8) K/uL Eos # (Auto) 0.4 (0.0-0.7) K/uL Baso # (Auto) 0.0 (0.0-0.1) K/uL Nucleated RBC % 0.0 /100WBC Nucleated RBCs # 0 K/uL Sodium 134 L (136-145) mmol/L Potassium 4.7 (3.5-5.1) mmol/L Chloride 97 L (98-107) mmol/L Carbon Dioxide 26.0 (21.0-32.0) mmol/L BUN 14 (7.0-18.0) mg/dL Creatinine 1.4 H (0.6-1.0) mg/dL Est Cr Clr Drug Dosing 28.01 mL/min Estimated GFR (MDRD) 37.5 ml/min Glucose 150 H (74-106) mg/dL Calcium 9.2 (8.5-10.1) mg/dL Total Bilirubin 0.4 (0.2-1.0) mg/dL AST 39 H (15-37) IU/L ALT 36 (14-63) IU/L Alkaline Phosphatase 61 (46-116) U/L Troponin I < 0.050 (0.000-0.056) ng/mL Total Protein 7.5 (6.4-8.2) g/dL Albumin 4.0 (3.4-5.0) g/dL Globulin 3.5 (2.6-4.0) g/dL Albumin/Globulin Ratio 1.1 (0.9-1.6) Meds: Medications Generic Name Dose Route Start Last Admin Trade Name Freq PRN Reason Stop Dose Admin Acetaminophen 650 mg 09/11/19 09:46 Tylenol PO Q4H PRN Pain/Fever Amlodipine Besylate 10 mg 09/11/19 11:00 09/11/19 12:50 Norvasc PO 10 mg DAILY BEN Administration Aspirin 81 mg 09/12/19 09:00 Halfprin PO DAILY [facility] Atenolol 25 mg 09/11/19 11:00 09/11/19 12:51 Tenormin PO 25 mg DAILY [facility] Administration Benzonatate 100 mg 09/11/19 21:40 09/11/19 22:05 Tessalon Perles PO 100 mg Q6H PRN Administration Cough Clopidogrel Bisulfate 75 mg 09/11/19 11:00 09/11/19 12:51 Plavix PO 75 mg DAILY [facility] Administration Ezetimibe 10 mg 09/11/19 21:00 09/11/19 20:51 Zetia PO 10 mg BEDTIME [facility] Administration Insulin Aspart 0 unit 09/11/19 11:30 09/11/19 17:47 Novolog SUBCUT Not Given TIDAC [facility] Protocol Levothyroxine Sodium 25 mcg 09/11/19 07:30 09/11/19 12:52 Levothyroxine PO 25 mcg ACBREAKFAST [facility] Administration Lisinopril 20 mg 09/11/19 11:00 09/11/19 12:47 Prinivil PO 20 mg DAILY [facility] Administration Nitroglycerin 0.4 mg 09/11/19 06:49 09/11/19 07:06 Nitrostat SL 09/12/19 06:50 0.4 mg Q5M PRN Administration Chest Pain Ondansetron HCl 4 mg 09/11/19 09:46 Zofran IVPUSH Q4H PRN Nausea/Vomiting Discontinued Medications Generic Name Dose Route Start Last Admin Trade Name Freq PRN Reason Stop Dose Admin Aspirin 324 mg 09/11/19 06:49 09/11/19 07:07 Aspirin PO 09/11/19 06:50 324 mg ONETIME ONE Administration Fentanyl 25 mcg 09/11/19 07:19 09/11/19 07:23 Fentanyl IVPUSH 09/11/19 07:20 25 mcg ONETIME ONE Administration Fentanyl Confirm 09/11/19 07:17 09/11/19 07:22 Sublimaze Administered 09/11/19 07:18 Not Given Dose 100 mcg .ROUTE .STK-MED ONE Sodium Chloride 1,000 mls @ 999 mls/hr 09/11/19 07:30 09/11/19 07:21 Normal Saline IV 999 mls/hr STAT BEN Administration Metformin HCl 500 mg 09/11/19 11:00 Glucophage PO DAILY BEN Departure - Departure Time of Disposition: 08:03 Disposition: Refer to Observation Condition: Good Clinical Impression: Chest pain Qualifiers: Chest pain type: other chest pain Sepsis Event Note - Focused Exam Date Exam was Performed: 09/12/19 Time Exam was Performed: 04:38 - My Orders Last 24 Hours: My Active Orders 09/11/19 06:49 Cardiac Monitoring [RC] Q8H Nitroglycerin [Nitrostat] 0.4 mg SL Q5M PRN - Assessment/Plan Last 24 Hours: My Active Orders 09/11/19 06:49 Cardiac Monitoring [RC] Q8H Nitroglycerin [Nitrostat] 0.4 mg SL Q5M PRN
[2019-09-11] MEDS ORDERED: fentaNYL 50 MCG/ML SDV IVPUSH ONE ×2 (07:12→07:19)
[2019-09-11] MEDS ORDERED: fentaNYL 100 MCG/2 ML SDV ONE (07:17)
--- NOTE | 2019-09-11 07:20 | CR ---
INDICATION: Chest pain TECHNIQUE: Chest 1 views COMPARISON: April 17, 2019 FINDINGS: Cardiovascular and mediastinum: Heart size and vasculature are normal in caliber and appearance. Lungs and pleural spaces: Lungs are clear. No sign of infiltrate or mass. No sign of pleural effusion. No pneumothorax. Bones and soft tissues: No significant findings. IMPRESSION: No acute findings and no significant changes from the prior exam. Dictated by Jony Hunt MD @ Sep 11 2019 7:19AM Signed by Dr. Jony Hunt @ Sep 11 2019 7:20AM
[2019-09-11] MEDS ORDERED: Sodium Chloride 0.9% 1,000 ML IV SCH (07:30)
[2019-09-11 07:43] LABS: BLOOD UREA NITROGEN,BUN 14 mg/dL (7.0-18.0); CHLORIDE,CL 97 mmol/L (98-107); GLUCOSE RANDOM 150 mg/dL (74-106); POTASSIUM,K 4.7 mmol/L (3.5-5.1); SODIUM,NA 134 mmol/L (136-145)
--- NOTE | 2019-09-11 09:23 | PCM.HP.2 ---
H&P History of Present Illness - General Date of Service: 09/11/19 Admit Problem/Dx: Admission Diagnosis/Problem Admission Diagnosis/Problem Chest pain - History of Present Illness Initial Comments - Free Text/Narative: The patient is a 68 year old female with past medical history of CAD, HTN, hyperlipidemia, DMII, and has had 11 stents placed, last in 2016. Has had 2 months of productive cough which has been improving, no associated fever/ chills. Was up last night coughing so bad it caused her to throw up and then she developed chest pain. The chest pain was sharp and squeezing, worse with coughing and vomiting, across the anterior chest, no radiation. Reports associated SOB but no diaphoresis. Tried to take a nitro at home but threw it up. Denies hx of asthma, COPD, or CHF. Was admitted for ACS rule out in March 2019, after that she had a stress test in [place] which she reports was fine. Follows with Dr. Rod, cardiology, here in [place], last appt was in June 2019, she states nothing changed. In the ER, lab work showed no leukocytosis or anemia, initial troponin was negative. Her Cr was elevated at 1.4. CXR was negative for acute processes. EKG showed NSR without ST changes but did show T wave inversion in III, avF, and V1-3. In the ER, patient was given nitro and fentanyl which relieved her chest pain. She was also given an aspirin and fluid bolus. Had recent lab work with PCP on 09/04/19- Lipid panel TC 234, TG 405, HDL 39, LDL couldn't calculate as TG were too high. 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 HA1c was 6.0. PCP- Dr. Boothe Medical Technologist Blood Bank- Dr. Rod chest pain Pain Score (Numeric/FACES): 1 - Related Data Allergies/Adverse Reactions: Allergies Allergy/AdvReac Type Severity Reaction Status Date / Time cephalexin Allergy Other Verified 09/11/19 09:58 Iodine and Iodide Containing Allergy Hives Verified 09/11/19 09:58 Produc morphine Allergy Nausea and Verified 09/11/19 09:58 Vomiting Sulfa (Sulfonamide Allergy Other Verified 09/11/19 09:58 Antibiotics) Home Medications: Home Meds Clopidogrel [Plavix] 75 mg PO DAILY #90 tablet 02/03/16 [Rx] atenoloL [Atenolol] 25 mg PO DAILY #90 tablet 02/03/16 [Rx] Nitroglycerin [Nitrostat] 0.4 mg SL Q5M PRN 07/11/16 [History] Aspirin [Adult Low Dose Aspirin EC] 81 mg PO DAILY 02/03/17 [History] Levothyroxine 25 mcg PO ACBREAKFAST 04/17/19 [History] Lisinopril 20 mg PO DAILY 04/17/19 [History] amLODIPine Besylate [Amlodipine Besylate] 10 mg PO DAILY 04/17/19 [History] Ezetimibe 10 mg PO BEDTIME 09/11/19 [History] metFORMIN [Glucophage] 500 mg PO DAILY 09/11/19 [History] Past Medical History HEENT History: Reports: Cataract Cardiovascular History: Reports: CAD, High Cholesterol, Hypertension, [place], Stents , Other (See Below) Other Cardiovascular History: [place] 2007 with 3 stents, last stenting 2016 Respiratory History: Reports: None Gastrointestinal History: Reports: None Genitourinary History: Reports: UTI, Recurrent 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: 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 History: Reports: Fracture Neurological History: Reports: None Psychiatric History: Reports: None Endocrine/Metabolic History: Reports: Other (See Below) Other Endocrine/Metabolic History: "prediabetes" Hematologic History: Reports: None Immunologic History: Reports: None Oncologic (Cancer) History: Reports: None Dermatologic History: Reports: None - Infectious Disease History Infectious Disease History: Reports: Chicken Pox, Measles, Mumps - Past Surgical History HEENT Surgical History: Reports: Cataract Surgery Cardiovascular Surgical History: Reports: Coronary Artery Stent Other Cardiovascular Surgeries/Procedures: Coronary Artery stents 3 in 2007, 4 in 2011, 4 in 2016 Social & Family History - Family History Family Medical History: Noncontributory - Tobacco Use Smoking Status *Q: Never Smoker - Caffeine Use Caffeine Use: Reports: Coffee - Recreational Drug Use Recreational Drug Use: No - Living Situation & Occupation Living situation: Reports: Occupation: Employed H&P Review of Systems - Review of Systems: Review Of Systems: See Below General: Reports: No Symptoms HEENT: Reports: No Symptoms Pulmonary: Reports: Shortness of Breath, Cough Cardiovascular: Reports: Chest Pain Gastrointestinal: Reports: Vomiting. Denies: Abdominal Pain, Nausea Genitourinary: Reports: No Symptoms 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: Reports: No Symptoms Skin: Reports: No Symptoms Psychiatric: Reports: No Symptoms Neurological: Reports: No Symptoms Hematologic/Lymphatic: Reports: No Symptoms Immunologic: Reports: No Symptoms Exam - Exam Exam: See Below - Vital Signs Vital Signs: Last Vital Signs Temp 98.5 F 09/11/19 06:47 Pulse 66 09/11/19 07:56 Resp 18 09/11/19 07:56 BP 111/62 09/11/19 07:56 Pulse Ox 96 09/11/19 07:56 Weight: 81.647 kg - Exam General: Alert, Oriented, Cooperative HEENT: Conjunctiva Clear, EOMI, Mucosa Moist & [place], Posterior Pharynx Clear, Pupils Equal, Pupils Reactive Lungs: Clear to Auscultation, Normal Respiratory Effort Cardiovascular: Regular Rate, Regular Rhythm GI/Abdominal Exam: Normal Bowel Sounds, Soft, Non-Tender, No Distention Extremities: No Pedal Edema Skin: Warm, Dry, Intact Neuro Extensive - Motor, Sensory, Reflexes: CN II-XII Intact Psychiatric: Alert, Normal Affect, Normal Mood - Patient Data Lab Results Last 24 hrs: Laboratory Results - last 24 hr 09/11/19 09/11/19 Range/Units 06:56 06:56 WBC 4.86 (4.0-11.0) K/uL RBC 3.92 L (4.30-5.90) M/uL Hgb 12.9 (12.0-16.0) g/dL Hct 36.4 (36.0-46.0) % MCV 92.9 (80.0-98.0) fL MCH 32.9 H (27.0-32.0) pg MCHC 35.4 (31.0-37.0) g/dL RDW Std Deviation 49.5 (28.0-62.0) fl RDW Coeff of Heide 15 (11.0-15.0) % Plt Count 138 L (150-400) K/uL MPV 9.20 (7.40-12.00) fL Neut % (Auto) 65.2 (48.0-80.0) % Lymph % (Auto) 21.2 (16.0-40.0) % [place] % (Auto) 6.0 (0.0-15.0) % Eos % (Auto) 7.2 H (0.0-7.0) % Baso % (Auto) 0.4 (0.0-1.5) % Neut # (Auto) 3.2 (1.4-5.7) K/uL Lymph # (Auto) 1.0 (0.6-2.4) K/uL [place] # (Auto) 0.3 (0.0-0.8) K/uL Eos # (Auto) 0.4 (0.0-0.7) K/uL Baso # (Auto) 0.0 (0.0-0.1) K/uL Nucleated RBC % 0.0 /100WBC Nucleated RBCs # 0 K/uL Sodium 134 L (136-145) mmol/L Potassium 4.7 (3.5-5.1) mmol/L Chloride 97 L (98-107) mmol/L Carbon Dioxide 26.0 (21.0-32.0) mmol/L BUN 14 (7.0-18.0) mg/dL Creatinine 1.4 H (0.6-1.0) mg/dL Est Cr Clr Drug Dosing 28.01 mL/min Estimated GFR (MDRD) 37.5 ml/min Glucose 150 H (74-106) mg/dL Calcium 9.2 (8.5-10.1) mg/dL Total Bilirubin 0.4 (0.2-1.0) mg/dL AST 39 H (15-37) IU/L ALT 36 (14-63) IU/L Alkaline Phosphatase 61 (46-116) U/L Troponin I < 0.050 (0.000-0.056) ng/mL Total Protein 7.5 (6.4-8.2) g/dL Albumin 4.0 (3.4-5.0) g/dL Globulin 3.5 (2.6-4.0) g/dL Albumin/Globulin Ratio 1.1 (0.9-1.6) Result Diagrams: 09/11/19 06:56 09/11/19 06:56 Sepsis Event Note - Evaluation Sepsis Screening Result: No Definite Risk - Focused Exam Vital Signs: Vital Signs Temp Pulse Resp BP BP Pulse Ox 09/11/19 07:56 66 18 111/62 96 09/11/19 07:20 74 18 119/61 97 09/11/19 07:06 142/66 H 09/11/19 06:47 98.5 F 100 16 146/83 H 100 Date Exam was Performed: 09/11/19 Time Exam was Performed: 12:16 Problem List Initiated/Reviewed/Updated: Yes Orders Last 24hrs: Active Orders 24 hr Category Date Time Status Admission Status [Patient Status] [ADT] Stat ADT 09/11/19 07:52 Active Cardiac Monitoring [RC] Q8H Care 09/11/19 06:49 Active Nitroglycerin [Nitrostat] Med 09/11/19 06:49 Active 0.4 mg SL Q5M PRN Sodium Chloride 0.9% [Normal Saline] 1,000 ml Med 09/11/19 07:30 Active IV STAT Medication Orders Sodium Chloride (Normal Saline) 1,000 mls @ 999 mls/hr IV STAT BEN Last Admin: 09/11/19 07:21 Dose: 999 mls/hr Nitroglycerin (Nitrostat) 0.4 mg SL Q5M PRN PRN Reason: Chest Pain Stop: 09/12/19 06:50 Last Admin: 09/11/19 07:06 Dose: 0.4 mg Assessment/Plan Comment:: 1. Admit for observation 2. Code status- full 3. Vitals per routine 4. I/Os per routine 5. Diet- heart healthy 6. DVT prophylaxis- SCD 7. Chest pain- will monitor on telemetry and trend troponins 8.MONICA- received IVF in ER, encourage oral intake, recheck in AM 9. Chronic conditions- CAD, HTN, hyperlipidemia, DMII- continue home meds, accuchecks and sliding scale
[2019-09-11] MEDS ORDERED: Acetaminophen 325 MG Tab PO PRN (09:46)
[2019-09-11] MEDS ORDERED: Ondansetron 4 MG/2 ML SDV IVPUSH PRN (09:46)
[2019-09-11] MEDS ORDERED: metFORMIN 500 MG Tab PO SCH (11:00)
[2019-09-11] MEDS: Lisinopril 10 MG Tab PO SCH (12:47)
[2019-09-11] MEDS: amLODIPine 5 MG Tab PO SCH (12:50)
[2019-09-11] MEDS: Clopidogrel 75 MG Tab PO SCH (12:51)
[2019-09-11] MEDS: Atenolol 25 MG Tab PO SCH (12:51)
[2019-09-11] MEDS: Levothyroxine 25 MCG Tab PO SCH (12:52)
[2019-09-11] MEDS: Insulin Aspart 100 Units/ML 3 ML Pen SUBCUT SCH ×2 (12:53→17:47)
[2019-09-11] MEDS ORDERED: Ezetimibe 10 MG Tab PO SCH (21:00)
[2019-09-11] MEDS ORDERED: Benzonatate 100 MG Cap PO PRN (21:40)
[2019-09-12 05:29] LABS: CARBON DIOXIDE,CO2 27.4 mmol/L (21.0-32.0); POTASSIUM,K 4.9 mmol/L (3.5-5.1)
[2019-09-12] MEDS: Levothyroxine 25 MCG Tab PO SCH (07:19)
[2019-09-12 07:23] VITALS: BP 123/56; PULSE 68
[2019-09-12] MEDS: Insulin Aspart 100 Units/ML 3 ML Pen SUBCUT SCH (07:30)
[2019-09-12] MEDS: Clopidogrel 75 MG Tab PO SCH (08:40)
[2019-09-12] MEDS: Lisinopril 10 MG Tab PO SCH (08:41)
[2019-09-12] MEDS: Atenolol 25 MG Tab PO SCH (08:41)
[2019-09-12] MEDS: amLODIPine 5 MG Tab PO SCH (08:42)
[2019-09-12] MEDS ORDERED: Aspirin 81 MG Tab.EC PO SCH (09:00)
--- NOTE | 2019-09-12 13:37 | PCM.DCSUM1 ---
Discharge Summary - Hospital Course Brief History: The patient is a 68 year old female with past medical history of CAD, HTN, hyperlipidemia, DMII, and has had 11 stents placed, last in 2016. Has had 2 months of productive cough which has been improving, no associated fever/chills. Was up last night coughing so bad it caused her to throw up and then she developed chest pain. The chest pain was sharp and squeezing, worse with coughing and vomiting, across the anterior chest, no radiation. Reports associated SOB but no diaphoresis. Tried to take a nitro at home but threw it up. Denies hx of asthma, COPD, or CHF. Was admitted for ACS rule out in March 2019, after that she had a stress test in [place] which she reports was fine. Follows with Dr. Rod, cardiology, here in [place], last appt was in June 2019, she states nothing changed. In the ER, lab work showed no leukocytosis or anemia, initial troponin was negative. Her Cr was elevated at 1.4. CXR was negative for acute processes. EKG showed NSR without ST changes but did show T wave inversion in III, avF, and V1-3. In the ER, patient was given nitro and fentanyl which relieved her chest pain. She was also given an aspirin and fluid bolus. Had recent lab work with PCP on 09/04/19- Lipid panel TC 234, TG 405, HDL 39, LDL couldn't calculate as TG were too high. Patient has statin induce myopathy, recently started on Zetia. HA1c was 6.0. PCP- Dr. Boothe. Pathology Assistant- Dr. Rod Diagnosis: Stroke: No - Discharge Data Discharge Date: 09/12/19 Discharge Disposition: Home, Self-Care 01 Condition: Good - Referral to Home Health Primary Care Physician: Giovani Narvaez MD - Patient Instructions Diet: Heart Healthy Diet Activity: No Strenuous Activities Showering/Bathing: December Shower Notify Provider of: Fever, Increased Pain, Swelling and Redness, Drainage, Nausea and/or Vomiting - Discharge Plan *PRESCRIPTION DRUG MONITORING PROGRAM REVIEWED*: Not Applicable *COPY OF PRESCRIPTION DRUG MONITORING REPORT IN PATIENT MICHAEL: Not Applicable Home Medications: Home Meds Clopidogrel [Plavix] 75 mg PO DAILY #90 tablet 02/03/16 [Rx] atenoloL [Atenolol] 25 mg PO DAILY #90 tablet 02/03/16 [Rx] Nitroglycerin [Nitrostat] 0.4 mg SL Q5M PRN 07/11/16 [History] Aspirin [Adult Low Dose Aspirin EC] 81 mg PO DAILY 02/03/17 [History] Levothyroxine 25 mcg PO ACBREAKFAST 04/17/19 [History] Lisinopril 20 mg PO DAILY 04/17/19 [History] amLODIPine Besylate [Amlodipine Besylate] 10 mg PO DAILY 04/17/19 [History] Ezetimibe 10 mg PO BEDTIME 09/11/19 [History] metFORMIN [Glucophage] 500 mg PO DAILY 09/11/19 [History] Oxygen Therapy Mode: Room Air Patient Handouts: Nonspecific Chest Pain, [id number] Referrals: [facility] [Outside] Alejandrina Rhodes MD [Physician] - 10/25/19 1:00 pm Roberto Boothe MD [Resident] - 09/18/19 2:00 pm - Discharge Summary/Plan Comment DC Time >30 min.: No Discharge Summary/Plan Comment: Admitting Diagnoses: Chest pain Cough Discharge Diagnoses: Chest pain-resolved Cough, bronchitis Other PMH: CAD DM Type 2 Elizabeth was admitted secondary to chest pain, which was associated with cough. She reports this cough has been there for close to 1 month, slowly improving. She was monitored overnight due to high risk for ACS and chest pain. Troponin negative and Telemetry showed no ST elevated or T wave changes. She denies chest pain. Pain likely either pleuritic in nature vs musculoskeletal secondary to coughing. She is requesting discharge home today as she has improved. She has follow-up with Dr Rhodes in Cardiology. Recent stress test in March 2019. She is to follow with PCP as well. She was counseled to return to ED or clinic if concerns should arise. - Patient Data Vitals - Most Recent: Last Vital Signs Temp 97 F 09/12/19 07:22 Pulse 68 09/12/19 08:41 Resp 14 09/12/19 07:22 BP 123/56 L 09/12/19 08:42 Pulse Ox 97 09/12/19 07:22 Weight - Most Recent: 81.647 kg I&O - Last 24 hours: Intake & Output 01/09/12/19 09/12/19 22:59 06:59 14:59 Intake Total 300 800 202 Output Total 700 900 650 Balance -400 -100 -448 Lab Results - Last 24 hrs: Laboratory Results - last 24 hr 09/11/19 09/11/19 09/11/19 Range/Units 13:07 16:53 19:05 WBC (4.0-11.0) K/uL RBC (4.30-5.90) M/uL Hgb (12.0-16.0) g/dL Hct (36.0-46.0) % MCV (80.0-98.0) fL MCH (27.0-32.0) pg MCHC (31.0-37.0) g/dL RDW Std Deviation (28.0-62.0) fl RDW Coeff of Heide (11.0-15.0) % Plt Count (150-400) K/uL MPV (7.40-12.00) fL Neut % (Auto) (48.0-80.0) % Lymph % (Auto) (16.0-40.0) % [place] % (Auto) (0.0-15.0) % Eos % (Auto) (0.0-7.0) % Baso % (Auto) (0.0-1.5) % Neut # (Auto) (1.4-5.7) K/uL Lymph # (Auto) (0.6-2.4) K/uL [place] # (Auto) (0.0-0.8) K/uL Eos # (Auto) (0.0-0.7) K/uL Baso # (Auto) (0.0-0.1) K/uL Nucleated RBC % /100WBC Nucleated RBCs # K/uL Sodium (136-145) mmol/L Potassium (3.5-5.1) mmol/L Chloride (98-107) mmol/L Carbon Dioxide (21.0-32.0) mmol/L BUN (7.0-18.0) mg/dL Creatinine (0.6-1.0) mg/dL Est Cr Clr Drug Dosing mL/min Estimated GFR (MDRD) ml/min Glucose (74-106) mg/dL POC Glucose 94 (60-110) mg/dL Calcium (8.5-10.1) mg/dL Troponin I < 0.050 < 0.050 (0.000-0.056) ng/mL 09/12/19 09/12/19 09/12/19 Range/Units 04:50 04:50 06:45 WBC 4.13 (4.0-11.0) K/uL RBC 3.67 L (4.30-5.90) M/uL Hgb 12.2 (12.0-16.0) g/dL Hct 35.0 L (36.0-46.0) % MCV 95.4 (80.0-98.0) fL MCH 33.2 H (27.0-32.0) pg MCHC 34.9 (31.0-37.0) g/dL RDW Std Deviation 51.2 (28.0-62.0) fl RDW Coeff of Heide 15 (11.0-15.0) % Plt Count 133 L (150-400) K/uL MPV 9.20 (7.40-12.00) fL Neut % (Auto) 50.8 (48.0-80.0) % Lymph % (Auto) 28.1 (16.0-40.0) % [place] % (Auto) 8.7 (0.0-15.0) % Eos % (Auto) 11.9 H (0.0-7.0) % Baso % (Auto) 0.5 (0.0-1.5) % Neut # (Auto) 2.1 (1.4-5.7) K/uL Lymph # (Auto) 1.2 (0.6-2.4) K/uL [place] # (Auto) 0.4 (0.0-0.8) K/uL Eos # (Auto) 0.5 (0.0-0.7) K/uL Baso # (Auto) 0.0 (0.0-0.1) K/uL Nucleated RBC % 0.0 /100WBC Nucleated RBCs # 0 K/uL Sodium 136 (136-145) mmol/L Potassium 4.9 (3.5-5.1) mmol/L Chloride 101 (98-107) mmol/L Carbon Dioxide 27.4 (21.0-32.0) mmol/L BUN 14 (7.0-18.0) mg/dL Creatinine 1.2 H (0.6-1.0) mg/dL Est Cr Clr Drug Dosing 32.68 mL/min Estimated GFR (MDRD) 44.8 ml/min Glucose 131 H (74-106) mg/dL POC Glucose 123 H (60-110) mg/dL Calcium 9.0 (8.5-10.1) mg/dL Troponin I (0.000-0.056) ng/mL Med Orders - Current: Current Medications Discontinued Medications Acetaminophen (Tylenol) 650 mg PO Q4H PRN PRN Reason: Pain/Fever Amlodipine Besylate (Norvasc) 10 mg PO DAILY [facility] Last Admin: 09/12/19 08:42 Dose: 10 mg Aspirin (Aspirin) 324 mg PO ONETIME ONE Stop: 09/11/19 06:50 Last Admin: 09/11/19 07:07 Dose: 324 mg Aspirin (Halfprin) 81 mg PO DAILY [facility] Last Admin: 09/12/19 08:42 Dose: 81 mg Atenolol (Tenormin) 25 mg PO DAILY [facility] Last Admin: 09/12/19 08:41 Dose: 25 mg Benzonatate (Tessalon Perles) 100 mg PO Q6H PRN PRN Reason: Cough Last Admin: 09/11/19 22:05 Dose: 100 mg Clopidogrel Bisulfate (Plavix) 75 mg PO DAILY [facility] Last Admin: 09/12/19 08:40 Dose: 75 mg Ezetimibe (Zetia) 10 mg PO BEDTIME [facility] Last Admin: 09/11/19 20:51 Dose: 10 mg Fentanyl (Fentanyl) 25 mcg IVPUSH ONETIME ONE Stop: 09/11/19 07:20 Last Admin: 09/11/19 07:23 Dose: 25 mcg Fentanyl (Sublimaze) Confirm Administered Dose 100 mcg .ROUTE .STK-MED ONE Stop: 09/11/19 07:18 Last Admin: 09/11/19 07:22 Dose: Not Given Sodium Chloride (Normal Saline) 1,000 mls @ 999 mls/hr IV STAT [facility] Last Admin: 09/11/19 07:21 Dose: 999 mls/hr Insulin Aspart (Novolog) 0 unit SUBCUT TIDAC [facility]; Protocol Last Admin: 09/12/19 07:30 Dose: Not Given Levothyroxine Sodium (Levothyroxine) 25 mcg PO ACBREAKFAST [facility] Last Admin: 09/12/19 07:19 Dose: 25 mcg Lisinopril (Prinivil) 20 mg PO DAILY [facility] Last Admin: 09/12/19 08:41 Dose: 20 mg Metformin HCl (Glucophage) 500 mg PO DAILY [facility] Nitroglycerin (Nitrostat) 0.4 mg SL Q5M PRN PRN Reason: Chest Pain Stop: 09/12/19 06:50 Last Admin: 09/11/19 07:06 Dose: 0.4 mg Ondansetron HCl (Zofran) 4 mg IVPUSH Q4H PRN PRN Reason: Nausea/Vomiting
== END 2019-09-12 11:15 | disposition home or self-care (01) ==
LOC: MW.ED 06:38 → MW.MS 08:03
PROVIDERS: ADMIT Internal Medicine; ATTEND Internal Medicine
DX: R07.89 Other chest pain (principal); J40 Bronchitis, not specified as acute or chronic; N17.9 Acute kidney failure, unspecified; I10 Essential (primary) hypertension; I25.10 Atherosclerotic heart disease of native coronary artery without angina pectoris; E11.9 Type 2 diabetes mellitus without complications; E78.5 Hyperlipidemia, unspecified; E78.00 Pure hypercholesterolemia, unspecified; I25.2 Old myocardial infarction; Z88.5 Allergy status to narcotic agent; Z88.2 Allergy status to sulfonamides; Z88.8 Allergy status to other drugs, medicaments and biological substances; Z88.1 Allergy status to other antibiotic agents; Z79.82 Long term (current) use of aspirin; Z79.84 Long term (current) use of oral hypoglycemic drugs; Z79.899 Other long term (current) drug therapy; Z95.5 Presence of coronary angioplasty implant and graft
CPT/HCPCS: 36415; 71045; 80048; 80053; 82962; 84484; 85025; 93005; A9270; J3010; J7030; 99284

== ENCOUNTER 2020-04-06 10:16 | Emergency (ER) | payer MEDICAID, MEDICARE ==
--- NOTE | 2020-04-06 11:01 | EDM.PDOC ---
ED HPI GENERAL MEDICAL PROBLEM - General Chief Complaint: Lower Extremity Injury/Pain Stated Complaint: LT LEG PAIN Time Seen by Provider: 04/06/20 10:17 Source of Information: Reports: Patient History Limitations: Reports: No Limitations - History of Present Illness INITIAL COMMENTS - FREE TEXT/NARRATIVE: 69F presents for atraumatic L knee/calf pain. Patient started with cramping pains yesterday that seem to be worsening today. Notes mild swelling. Denies any redness. Denies SOB/CP. Is on plavix but no AC Left Knee Pain Pain Score (Numeric/FACES): 8 - Related Data Allergies Allergy/AdvReac Type Severity Reaction Status Date / Time cephalexin Allergy Other Verified 04/06/20 11:00 Iodine and Iodide Containing Allergy Hives Verified 04/06/20 11:00 Produc morphine Allergy Nausea and Verified 04/06/20 11:00 Vomiting Sulfa (Sulfonamide Allergy Other Verified 04/06/20 11:00 Antibiotics) Home Meds: Home Meds Clopidogrel [Plavix] 75 mg PO DAILY #90 tablet 02/03/16 [Rx] atenoloL [Atenolol] 25 mg PO DAILY #90 tablet 02/03/16 [Rx] Nitroglycerin [Nitrostat] 0.4 mg SL Q5M PRN 07/11/16 [History] Aspirin [Adult Low Dose Aspirin EC] 81 mg PO DAILY 02/03/17 [History] Levothyroxine 25 mcg PO ACBREAKFAST 04/17/19 [History] Lisinopril 20 mg PO DAILY 04/17/19 [History] amLODIPine Besylate [Amlodipine Besylate] 10 mg PO DAILY 04/17/19 [History] Ezetimibe 10 mg PO BEDTIME 09/11/19 [History] metFORMIN [Glucophage] 500 mg PO DAILY 09/11/19 [History] Past Medical History HEENT History: Reports: Cataract Cardiovascular History: Reports: CAD, High Cholesterol, Hypertension, [place], St ents, Other (See Below) Other Cardiovascular History: [place] 2007 with 3 stents, last stenting 2016 Respiratory History: Reports: None Gastrointestinal History: Reports: None Genitourinary History: Reports: UTI, Recurrent [employer] History: Reports: 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 History: Reports: Fracture Neurological History: Reports: None Psychiatric History: Reports: None Endocrine/Metabolic History: Reports: Other (See Below) Other Endocrine/Metabolic History: "prediabetes" Hematologic History: Reports: None Immunologic History: Reports: None Oncologic (Cancer) History: Reports: None Dermatologic History: Reports: None - Infectious Disease History Infectious Disease History: Reports: Chicken Pox, Measles, Mumps - Past Surgical History HEENT Surgical History: Reports: Cataract Surgery Cardiovascular Surgical History: Reports: Coronary Artery Stent Other Cardiovascular Surgeries/Procedures: Coronary Artery stents 3 in 2007, 4 in 2011, 4 in 2017 Social & Family History - Family History Family Medical History: Noncontributory - Caffeine Use Caffeine Use: Reports: Coffee - Living Situation & Occupation Living situation: Reports: Occupation: Employed Review of Systems - Review of Systems Review Of Systems: Comprehensive ROS is negative, except as noted in HPI. ED EXAM, GENERAL - Physical Exam Exam: See Below Exam Limited By: No Limitations General Appearance: Alert, WD/WN, No Apparent Distress Head: Atraumatic, Normocephalic Respiratory/Chest: No Respiratory Distress, Lungs Clear, Normal Breath Sounds, No Accessory Muscle Use Cardiovascular: Normal Peripheral Pulses, Regular Rate, Rhythm, No Edema Extremities: Other (TTP of L calf and popliteal fossa, very mild swelling of leg without erythema or warmth) Neurological: Alert Skin Exam: Warm, Dry Course - Vital Signs Last Recorded V/S: Last Vital Signs Temp 96.4 F L 04/06/20 11:00 Pulse 70 04/06/20 11:00 Resp 20 04/06/20 11:00 BP 175/61 H 04/06/20 11:00 Pulse Ox 99 04/06/20 11:00 - Orders/Labs/Meds Orders: Active Orders 24 hr Category Date Time Status BASIC METABOLIC PANEL,BMP [CHEM] Stat Lab 04/06/20 11:01 Ordered CBC W/O DIFF,HEMOGRAM [HEME] Stat Lab 04/06/20 11:01 Ordered INR,PT,PROTHROMBIN TIME [COAG] Stat Lab 04/06/20 11:01 Ordered PTT,PARTIAL THROMBOPLSTIN TIME [COAG] Stat Lab 04/06/20 11:01 Ordered - Re-Assessments/Exams Free Text/Narrative Re-Assessment/Exam: 04/06/20 11:15 Will get doppler US to r/o DVT; will get basic labs including coags, will give tylenol for analgesia. 04/06/20 12:37 US negative for DVT; patient feels a bit better after tylenol. Will d/c with PMD f/u, may need MRI versus statin-related pain, PMD to workup Departure - Departure Time of Disposition: 12:38 Disposition: Home, Self-Care 01 Condition: Good Clinical Impression: Knee pain, left Qualifiers: Chronicity: acute Qualified Code(s): M25.562 - Pain in left knee - Discharge Information Instructions: Acute Knee Pain, Adult Referrals: Roberto Boothe MD [Primary Care Provider] - Forms: ED Department Discharge Additional Instructions: The following information is given to patients seen in the emergency department who are being discharged to home. This information is to outline your options for follow-up care. We provide all patients seen in our emergency department with a follow-up referral. The need for follow-up, as well as the timing and circumstances, are variable depending upon the specifics of your emergency department visit. If you don't have a primary care physician on staff, we will provide you with a referral. We always advise you to contact your personal physician following an emergency department visit to inform them of the circumstance of the visit and for follow-up with them and/or the need for any referrals to a consulting specialist. The emergency department will also refer you to a specialist when appropriate. This referral assures that you have the opportunity for follow-up care with a s pecialist. All of these measure are taken in an effort to provide you with optimal care, which includes your follow-up. Under all circumstances we always encourage you to contact your private physici an who remains a resource for coordinating your care. When calling for follow-up care, please make the office aware that this follow-up is from your recent emergency room visit. If for any reason you are refused follow-up, please contact the [facility] Emergency Department at and asked to speak to the emergency department charge nurse. Sepsis Event Note (ED) - Focused Exam Vital Signs: Vital Signs Temp Pulse Resp BP Pulse Ox 04/06/20 11:00 96.4 F L 70 20 175/61 H 99 - My Orders Last 24 Hours: My Active Orders 04/06/20 11:01 BASIC METABOLIC PANEL,BMP [CHEM] Stat CBC W/O DIFF,HEMOGRAM [HEME] Stat INR,PT,PROTHROMBIN TIME [COAG] Stat PTT,PARTIAL THROMBOPLSTIN TIME [COAG] Stat - Assessment/Plan Last 24 Hours: My Active Orders 04/06/20 11:01 BASIC METABOLIC PANEL,BMP [CHEM] Stat CBC W/O DIFF,HEMOGRAM [HEME] Stat INR,PT,PROTHROMBIN TIME [COAG] Stat PTT,PARTIAL THROMBOPLSTIN TIME [COAG] Stat
--- NOTE | 2020-04-06 12:29 | US ---
Left lower extremity deep venous ultrasound: Duplex and color Doppler evaluation was obtained of the left common femoral, superficial femoral, popliteal, posterior tibial and peroneal veins. Comparison: No prior venous imaging. Findings: Normal compression and Doppler blood flow are seen. Impression: 1. No evidence of deep venous thrombosis within the left lower extremity. Diagnostic code #1 Study was dictated in MDT
[2020-04-06 15:34] VITALS: BP 141/66; PULSE 65
== END 2020-04-06 12:50 | disposition home or self-care (01) ==
LOC: MW.ED 10:16
DX: M25.562 Pain in left knee (principal); M79.662 Pain in left lower leg; I10 Essential (primary) hypertension; I25.2 Old myocardial infarction; I25.10 Atherosclerotic heart disease of native coronary artery without angina pectoris; Z88.1 Allergy status to other antibiotic agents; Z88.6 Allergy status to analgesic agent; Z88.5 Allergy status to narcotic agent; Z88.2 Allergy status to sulfonamides; Z79.82 Long term (current) use of aspirin; Z79.02 Long term (current) use of antithrombotics/antiplatelets; Z79.899 Other long term (current) drug therapy; Z95.5 Presence of coronary angioplasty implant and graft
CPT/HCPCS: 93971-26-LT; 93971-LT; 99284-25

== ENCOUNTER 2020-04-12 15:30 | Emergency (ER) | payer MEDICARE ==
[2020-04-12 15:43] VITALS: BP 145/74; PULSE 72
--- NOTE | 2020-04-12 15:58 | EDM.PDOC ---
ED HPI GENERAL MEDICAL PROBLEM - General Chief Complaint: Genitourinary Problem Stated Complaint: UTI Time Seen by Provider: 04/12/20 15:31 Source of Information: Reports: Patient History Limitations: Reports: No Limitations - History of Present Illness INITIAL COMMENTS - FREE TEXT/NARRATIVE: HISTORY AND PHYSICAL: History of present illness: Patient is a 69-year-old female who presents to the emergency room with complaints of dysuria and discolored urine. She states she has had UTIs in the past, symptoms feel similar. Patient denies any fever, chills, headache, change in vision, syncope or near syncope. Denies any chest pain, back pain, shortness of breath or cough. Denies any abdominal pain, nausea, vomiting, diarrhea, constipation or vaginal discharge/bleeding. Has not noted any blood in urine or stool. Patient has been eating and drinking appropriately. Review of systems: As per history of present illness and below otherwise all systems reviewed and negative. Past medical history: As per history of present illness and as reviewed below otherwise noncontributory. Surgical history: As per history of present illness and as reviewed below otherwise noncon tributory. Social history: See social history for further information Family history: As per history of present illness and as reviewed below otherwise noncontributory. Physical exam: General: Well developed and well nourished. Alert and orientated x 3. Nontoxic in appearance and in no acute distress. Vital signs are stable and have been reviewed by me. Nursing notes were reviewed. HEENT: Atraumatic, normocephalic, pupils equal and reactive bilaterally, negative for conjunctival pallor or scleral icterus, mucous membranes moist, TMs normal bilaterally, throat clear, neck supple, nontender, trachea midline. No drooling or trismus noted. No meningeal signs. No hot potato voice noted. Lungs: Clear to auscultation, breath sounds equal bilaterally, chest nontender. Normal work of breathing, no accessory muscles used. Heart: S1S2, regular rate and rhythm without overt murmur Abdomen: Soft, nondistended, nontender. Negative for masses or costovertebral tenderness. Skin: Intact, warm, dry. No lesions or rashes noted. Hematologic: No petechiae or purpra. Mucosa appropriate color and normal nail bed color and refill. Extremities: Atraumatic, moves all extremities per self without difficulty or deficits, negative for cords or calf pain. Neurovascular unremarkable. Neuro: Awake, alert, oriented. Cranial nerves II through XII unremarkable. Cerebellum unremarkable. Motor and sensory unremarkable throughout. Exam nonfocal. Psychiatric: Mood and affect are appropriate. Normal thought process. Answering questions appropriately. Notes: Patient does have a UTI, culture has been added. We discussed medication options. We discussed signs and symptoms that would prompt them to return to the Emergency Department. Medication, follow up and supportive care measures were reviewed and discussed. Voices understanding and is agreeable to plan of care. Denies any further questions or concerns at this time. Diagnostics: UA Therapeutics: None Prescription: Cipro, Pyridium Impression: UTI Plan: 1. Today your physical exam was normal. Your urine showed bacteria in your urine, you have a bladder infection (UTI). We always encourage you to follow up with your primary care provider or recommended specialist in the next few days for re-evaluation and further care/management. If your symptoms should worsen, new symptoms develop or any of the signs and symptoms we discussed should arise please return to the emergency room or call 911 (if needed). 2. Take the medications as directed. 3. Increase your oral fluids. You can alternate Tylenol and ibuprofen as needed for pain/fever management. Definitive disposition and diagnosis as appropriate pending reevaluation and review of above. - Related Data Allergies Allergy/AdvReac Type Severity Reaction Status Date / Time cephalexin Allergy Other Verified 04/12/20 15:41 Iodine and Iodide Containing Allergy Hives Verified 04/12/20 15:41 Produc morphine Allergy Nausea and Verified 04/12/20 15:41 Vomiting Sulfa (Sulfonamide Allergy Other Verified 04/12/20 15:41 Antibiotics) Home Meds: Home Meds Clopidogrel [Plavix] 75 mg PO DAILY #90 tablet 02/03/16 [Rx] atenoloL [Atenolol] 25 mg PO DAILY #90 tablet 02/03/16 [Rx] Nitroglycerin [Nitrostat] 0.4 mg SL Q5M PRN 07/11/16 [History] Aspirin [Adult Low Dose Aspirin EC] 81 mg PO DAILY 02/03/17 [History] Levothyroxine 25 mcg PO ACBREAKFAST 04/17/19 [History] Lisinopril 20 mg PO DAILY 04/17/19 [History] amLODIPine Besylate [Amlodipine Besylate] 10 mg PO DAILY 04/17/19 [History] Ezetimibe 10 mg PO BEDTIME 09/11/19 [History] metFORMIN [Glucophage] 500 mg PO DAILY 09/11/19 [History] Ciprofloxacin [Ciprofloxacin HCl] 500 mg PO BID 5 Days #10 tab 04/12/20 [Rx] Phenazopyridine HCl [Pyridium] 100 mg PO TID 2 Days #6 tablet 04/12/20 [Rx] Past Medical History HEENT History: Reports: Cataract Cardiovascular History: Reports: CAD, High Cholesterol, Hypertension, [place], Stents, Other (See Below) Other Cardiovascular History: [place] 2007 with 3 stents, last stenting 2017 Respiratory History: Reports: None Gastrointestinal History: Reports: None Genitourinary History: Reports: UTI, Recurrent 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: 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 History: Reports: Fracture Neurological History: Reports: None Psychiatric History: Reports: None Endocrine/Metabolic History: Reports: Other (See Below) Other Endocrine/Metabolic History: "prediabetes" Hematologic History: Reports: None Immunologic History: Reports: None Oncologic (Cancer) History: Reports: None Dermatologic History: Reports: None - Infectious Disease History Infectious Disease History: Reports: Chicken Pox, Measles, Mumps - Past Surgical History HEENT Surgical History: Reports: Cataract Surgery Cardiovascular Surgical History: Reports: Coronary Artery Stent Other Cardiovascular Surgeries/Procedures: Coronary Artery stents 3 in 2007, 4 in 2011, 4 in 2016 Social & Family History - Family History Family Medical History: Noncontributory - Caffeine Use Caffeine Use: Reports: Coffee - Living Situation & Occupation Living situation: Reports: Occupation: Employed ED ROS GENERAL - Review of Systems Review Of Systems: Comprehensive ROS is negative, except as noted in HPI. ED EXAM, RENAL/ - Physical Exam Exam: See Below (See dictation) Course - Vital Signs Last Recorded V/S: Last Vital Signs Temp 97.3 F 04/12/20 15:37 Pulse 72 04/12/20 15:37 Resp 20 04/12/20 15:37 BP 145/74 H 04/12/20 15:37 Pulse Ox 97 04/12/20 15:37 - Orders/Labs/Meds Orders: Active Orders 24 hr Category Date Time Status CULTURE URINE [RM] Stat Lab 04/12/20 15:46 Received Labs: Laboratory Tests 04/12/20 Range/Units 15:46 Urine Color ORANGE Urine Appearance SLT CLOUDY Urine pH 5.0 (5.0-8.0) Ur Specific [place] 1.025 (1.001-1.035) Urine Protein 100 H (NEGATIVE) mg/dL Urine Glucose (UA) 250 H (NEGATIVE) mg/dL Urine Ketones NEGATIVE (NEGATIVE) mg/dL Urine Occult Blood TRACE-INTACT H (NEGATIVE) Urine Nitrite POSITIVE H (NEGATIVE) Urine Bilirubin MODERATE H (NEGATIVE) Urine Ictotest POSITIVE Urine Urobilinogen >=8.0 H (<2.0) EU/dL Ur Leukocyte Esterase MODERATE H (NEGATIVE) Urine RBC 2-4 (0-2/HPF) Urine WBC 40-50 (0-5/HPF) Ur Epithelial Cells FEW (NONE-FEW) Urine Bacteria 1+ H (NEGATIVE) Departure - Departure Time of Disposition: 16:22 Disposition: Home, Self-Care 01 Clinical Impression: UTI, Urinary tract infectious disease - Discharge Information Prescriptions: Ciprofloxacin [Ciprofloxacin HCl] 500 mg PO BID 5 Days #10 tab Phenazopyridine HCl [Pyridium] 100 mg PO TID 2 Days #6 tablet Instructions: Urinary Tract Infection, Adult, [id number] Referrals: Tenzin Hammonds MD [Primary Care Provider] - Forms: ED Department Discharge Additional Instructions: The following information is given to patients seen in the emergency department who are being discharged to home. This information is to outline your options for follow-up care. We provide all patients seen in our emergency department with a follow-up referral. The need for follow-up, as well as the timing and circumstances, are variable depending upon the specifics of your emergency department visit. If you don't have a primary care physician on staff, we will provide you with a referral. We always advise you to contact your personal physician following an emergency department visit to inform them of the circumstance of the visit and for follow-up with them and/or the need for any referrals to a consulting specialist. The emergency department will also refer you to a specialist when appropriate. This referral assures that you have the opportunity for follow-up care with a specialist. All of these measure are taken in an effort to provide you with optimal care, which includes your follow-up. Under all circumstances we always encourage you to contact your private physician who remains a resource for coordinating your care. When calling for follow-up care, please make the office aware that this follow-up is from your recent emergency room visit. If for any reason you are refused follow-up, please contact the [facility] Emergency Department at and asked to speak to the emergency department charge nurse. [facility] Primary Care [address] [place] [address] [facility] [address] [place] [phone] Thank you for choosing the [facility] emergency department in [place] for your medical needs today. It was a pleasure caring for you. Today you were seen in the emergency department for bladder infection. 1. Today your physical exam was normal. Your urine showed bacteria in your urine, you have a bladder infection (UTI). We always encourage you to follow up with your primary care provider or recommended specialist in the next few days for re-evaluation and further care/management. If your symptoms should worsen, new symptoms develop or any of the signs and symptoms we discussed should arise please return to the emergency room or call 911 (if needed). 2. Take the medications as directed. 3. Increase your oral fluids. You can alternate Tylenol and ibuprofen as needed for pain/fever management. Sepsis Event Note (ED) - Evaluation Sepsis Screening Result: No Definite Risk - Focused Exam Vital Signs: Vital Signs Temp Pulse Resp BP Pulse Ox 04/12/20 15:37 97.3 F 72 20 145/74 H 97 - My Orders Last 24 Hours: My Active Orders 04/12/20 15:46 CULTURE URINE [RM] Stat - Assessment/Plan Last 24 Hours: My Active Orders 04/12/20 15:46 CULTURE URINE [RM] Stat
== END 2020-04-12 16:36 | disposition home or self-care (01) ==
LOC: MW.ED 15:30
DX: N39.0 Urinary tract infection, site not specified (principal); I25.10 Atherosclerotic heart disease of native coronary artery without angina pectoris; E78.00 Pure hypercholesterolemia, unspecified; I10 Essential (primary) hypertension; I25.2 Old myocardial infarction; Z88.2 Allergy status to sulfonamides; Z88.5 Allergy status to narcotic agent; Z88.1 Allergy status to other antibiotic agents; Z91.041 Radiographic dye allergy status
CPT/HCPCS: 81001; 87086; 87088; 87186; 99283

== ENCOUNTER 2020-04-28 06:43 | Observation (INO) | payer MEDICARE ==
[2020-04-28] MEDS ORDERED: Sodium Chloride 0.9% 10 ML Syringe FLUSH PRN (06:54)
[2020-04-28] MEDS ORDERED: Sodium Chloride 0.9% 2.5 ML Syringe FLUSH PRN (06:54)
--- NOTE | 2020-04-28 07:10 | EDM.PDOC ---
ED HPI GENERAL MEDICAL PROBLEM - General Chief Complaint: Chest Pain Stated Complaint: CHEST PAIN; SHORTNESS OF BREATH Time Seen by Provider: 04/28/20 06:54 - History of Present Illness INITIAL COMMENTS - FREE TEXT/NARRATIVE: History of present illness: Patient presents with substernal chest pain that began at 430 this morning. She has a previous history of multiple stents cardiovascular disease. Pain is described as pressure no radiation she had some mild shortness of breath no nausea or vomiting nitro made it better nothing seems to make it worse is been constant since 430 this morning. She denies any fever chills or cough no leg pain or leg swelling she cannot recall exactly when her last stress test or heart cath were. Review of systems: As per history of present illness and below otherwise all systems reviewed and negative. Past medical history: As per history of present illness and as reviewed below otherwise noncontributory. Surgical history: As per history of present illness and as reviewed below otherwise noncontributory. Social history: No reported history of drug or alcohol abuse. Family history: As per history of present illness and as reviewed below otherwise noncontributory. Physical exam: HEENT: Atraumatic, normocephalic, pupils reactive, negative for conjunctival pallor or scleral icterus, mucous membranes moist, throat clear, neck supple, nontender, trachea midline. Lungs: Clear to auscultation, breath sounds equal bilaterally, chest nontender. Heart: S1S2, regular, negative for clicks, rubs, or JVD. Abdomen: Soft, nondistended, nontender. Negative for masses or hepatosple nomegaly. Negative for costovertebral tenderness. Pelvis: Stable nontender. Genitourinary: Deferred. Rectal: Deferred. Extremities: Atraumatic, negative for cords or calf pain. Neurovascular unremarkable. Neuro: Awake, alert, oriented. Cranial nerves II through XII unremarkable. Cerebellum unremarkable. Motor and sensory unremarkable throughout. Exam nonfocal. Diagnostics: [] Therapeutics: [] Impression: Chest pain [] Plan: Cardiac work-up and reassess the patient. [] Definitive disposition and diagnosis as appropriate pending reevaluation and review of above. Treatments TUNNEL MAN: Reports: Aspirin, Nitroglycerin Chest Pain Score (Numeric/FACES): 4 - Related Data Allergies Allergy/AdvReac Type Severity Reaction Status Date / Time cephalexin Allergy Other Verified 04/28/20 06:54 Iodine and Iodide Containing Allergy Hives Verified 04/28/20 06:54 Produc morphine Allergy Nausea and Verified 04/28/20 06:54 Vomiting Sulfa (Sulfonamide Allergy Other Verified 04/28/20 06:54 Antibiotics) Home Meds: Home Meds Clopidogrel [Plavix] 75 mg PO DAILY #90 tablet 02/03/16 [Rx] atenoloL [Atenolol] 25 mg PO DAILY #90 tablet 02/03/16 [Rx] Nitroglycerin [Nitrostat] 0.4 mg SL Q5M PRN 07/11/16 [History] Aspirin [Adult Low Dose Aspirin EC] 81 mg PO DAILY 02/03/17 [History] Levothyroxine 25 mcg PO ACBREAKFAST 04/17/19 [History] Lisinopril 20 mg PO DAILY 04/17/19 [History] amLODIPine Besylate [Amlodipine Besylate] 10 mg PO DAILY 04/17/19 [History] Ezetimibe 10 mg PO BEDTIME 09/11/19 [History] Past Medical History HEENT History: Reports: Cataract Cardiovascular History: Reports: CAD, High Cholesterol, Hypertension, [place], Stents, Other (See Below) Other Cardiovascular History: [place] 2007 with 3 stents, last stenting 2016. 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 Hematologic History: Reports: None Immunologic History: Reports: None Oncologic (Cancer) History: Reports: None Dermatologic History: Reports: None - Infectious Disease History Infectious Disease History: Reports: None - Past Surgical History HEENT Surgical History: Reports: Cataract Surgery Cardiovascular Surgical History: Reports: Coronary Artery Stent Other Cardiovascular Surgeries/Procedures: Coronary Artery stents 3 in 2007, 4 in 2011, 4 in 2017 Female Surgical History: Reports: None Social & Family History - Family History Family Medical History: Noncontributory - Tobacco Use Smoking Status *Q: Former Smoker Used Tobacco, but Quit: No - Caffeine Use Caffeine Use: Reports: Coffee, Soda - Recreational Drug Use Recreational Drug Use: No - Living Situation & Occupation Living situation: Reports: Occupation: Employed ED ROS GENERAL - Review of Systems Review Of Systems: See Below ED EXAM, GENERAL - Physical Exam Exam: See Below EKG INTERPRETATION EKG Interpretation Comments: EKG is normal sinus rhythm rate [address]-T changes no changes from prior EKG no angela ischemia read and interpreted by me Course - Vital Signs Text/Narrative:: 2 view chest read interpreted by me no acute cardiopulmonary pathology is evident.. At 730 patient was reassessed she is more comfortable at this time vital signs are stable. Her troponins negative chest x-ray unremarkable her EKG was nonischemic I discussed the case with Dr. Herrera she will admit the patient tel emetry observation. Last Recorded V/S: Last Vital Signs Temp 36.3 C 04/28/20 06:45 Pulse 82 04/28/20 06:45 Resp 18 04/28/20 06:45 BP 155/65 H 04/28/20 06:45 Pulse Ox 97 04/28/20 06:45 - Orders/Labs/Meds Orders: Active Orders 24 hr Category Date Time Status Patient Status [ADT] Routine ADT 04/28/20 07:36 Active Cardiac Monitoring [RC] . DIRECTED Care 04/28/20 06:54 Active EKG Documentation Completion [RC] STAT Care 04/28/20 06:54 Active Pulse Oximetry [RC] ASDIRECTED Care 04/28/20 06:54 Active Chest 2V [CR] Stat Exams 04/28/20 06:54 Taken CORONAVIRUS COVID-19 PCR PHL Stat Lab 04/28/20 07:35 Ordered Sodium Chloride 0.9% [Saline Flush] Med 04/28/20 06:54 Active 10 ml FLUSH ASDIRECTED PRN Sodium Chloride 0.9% [Saline Flush] Med 04/28/20 06:54 Active 2.5 ml FLUSH ASDIRECTED PRN Saline Lock Insert [OM.PC] Stat Oth 04/28/20 06:54 Ordered Medication Orders Sodium Chloride (Saline Flush) 10 ml FLUSH ASDIRECTED PRN PRN Reason: Keep Vein Open Last Admin: 04/28/20 07:31 Dose: 10 ml Documented by: MURDNIC Sodium Chloride (Saline Flush) 2.5 ml FLUSH ASDIRECTED PRN PRN Reason: Keep Vein Open Last Admin: 04/28/20 07:31 Dose: 2.5 ml Documented by: GLADYS Labs: Laboratory Tests 04/28/20 04/28/20 Range/Units 06:45 06:45 WBC 3.86 L (4.0-11.0) K/uL RBC 3.58 L (4.30-5.90) M/uL Hgb 12.5 (12.0-16.0) g/dL Hct 35.0 L (36.0-46.0) % MCV 97.8 (80.0-98.0) fL MCH 34.9 H (27.0-32.0) pg MCHC 35.7 (31.0-37.0) g/dL RDW Std Deviation 46.6 (28.0-62.0) fl RDW Coeff of [place]ide 13 (11.0-15.0) % Plt Count 140 L (150-400) K/uL MPV 9.10 (7.40-12.00) fL Neut % (Auto) 57.4 (48.0-80.0) % Lymph % (Auto) 28.8 (16.0-40.0) % [place] % (Auto) 7.3 (0.0-15.0) % Eos % (Auto) 6.2 (0.0-7.0) % Baso % (Auto) 0.3 (0.0-1.5) % Neut # (Auto) 2.2 (1.4-5.7) K/uL Lymph # (Auto) 1.1 (0.6-2.4) K/uL [place] # (Auto) 0.3 (0.0-0.8) K/uL Eos # (Auto) 0.2 (0.0-0.7) K/uL Baso # (Auto) 0.0 (0.0-0.1) K/uL Nucleated RBC % 0.0 /100WBC Nucleated RBCs # 0 K/uL Sodium 129 L (136-145) mmol/L Potassium 4.7 (3.5-5.1) mmol/L Chloride 96 L (98-107) mmol/L Carbon Dioxide 19.7 L (21.0-32.0) mmol/L BUN 6 L (7.0-18.0) mg/dL Creatinine 1.3 H (0.6-1.0) mg/dL Est Cr Clr Drug Dosing 29.75 mL/min Estimated GFR (MDRD) 40.7 ml/min Glucose 203 H (74-106) mg/dL Calcium 9.3 (8.5-10.1) mg/dL Total Bilirubin 0.4 (0.2-1.0) mg/dL AST 53 H (15-37) IU/L ALT 57 (14-63) IU/L Alkaline Phosphatase 58 (46-116) U/L Troponin I < 0.050 (0.000-0.056) ng/mL Total Protein 7.0 (6.4-8.2) g/dL Albumin 3.9 (3.4-5.0) g/dL Globulin 3.1 (2.6-4.0) g/dL Albumin/Globulin Ratio 1.3 (0.9-1.6) Meds: Medications Generic Name Dose Route Start Last Admin Trade Name Freq PRN Reason Stop Dose Admin Sodium Chloride 10 ml 04/28/20 06:54 04/28/20 07:31 Saline Flush FLUSH 10 ml ASDIRECTED PRN Administration Keep Vein Open Sodium Chloride 2.5 ml 04/28/20 06:54 04/28/20 07:31 Saline Flush FLUSH 2.5 ml ASDIRECTED PRN Administration Keep Vein Open Departure - Departure Time of Disposition: 07:39 Disposition: Refer to Observation Condition: Good Clinical Impression: Chest pain Qualifiers: Chest pain type: other chest pain - Discharge Information *PRESCRIPTION DRUG MONITORING PROGRAM REVIEWED*: Not Applicable *COPY OF PRESCRIPTION DRUG MONITORING REPORT IN PATIENT MICHAEL: Not Applicable Instructions: Nonspecific Chest Pain, Adult Referrals: PCP,None [Primary Care Provider] - Forms: ED Department Discharge Sepsis Event Note (ED) - Evaluation Sepsis Screening Result: No Definite Risk - Focused Exam Vital Signs: Vital Signs Temp Pulse Resp BP Pulse Ox 04/28/20 06:45 36.3 C 82 18 155/65 H 97 - My Orders Last 24 Hours: My Active Orders 04/28/20 07:35 CORONAVIRUS COVID-19 PCR PHL Stat 04/28/20 07:36 Patient Status [ADT] Routine - Assessment/Plan Last 24 Hours: My Active Orders 04/28/20 07:35 CORONAVIRUS COVID-19 PCR PHL Stat 04/28/20 07:36 Patient Status [ADT] Routine
[2020-04-28 07:20] LABS: BLOOD UREA NITROGEN,BUN 6 mg/dL (7.0-18.0); CARBON DIOXIDE,CO2 19.7 mmol/L (21.0-32.0); CHLORIDE,CL 96 mmol/L (98-107); GLUCOSE RANDOM 203 mg/dL (74-106); POTASSIUM,K 4.7 mmol/L (3.5-5.1); SODIUM,NA 129 mmol/L (136-145)
[2020-04-28] MEDS ORDERED: Nitroglycerin 0.4 MG Tab.SL SL PRN (08:04)
--- NOTE | 2020-04-28 08:14 | CR ---
INDICATION chest pain TECHNIQUE Two view chest IMPRESSION Heart size normal. There are extensive coronary artery calcifications. Lungs are clear No effusion or pneumothorax EKG monitors. No change from a prior exam August 2019 Dictated by Crescencio Goddard MD @ Apr 28 2020 8:10AM Signed by Dr. Crescencio Goddard @ Apr 28 2020 8:12AM
[2020-04-28] MEDS ORDERED: Atenolol 25 MG Tab PO SCH (09:00)
[2020-04-28] MEDS ORDERED: Lisinopril 10 MG Tab PO SCH (09:00)
[2020-04-28] MEDS ORDERED: Aspirin 81 MG Tab.EC PO SCH (09:00)
[2020-04-28] MEDS ORDERED: amLODIPine 5 MG Tab PO SCH (09:00)
[2020-04-28] MEDS ORDERED: Clopidogrel 75 MG Tab PO SCH (09:00)
--- NOTE | 2020-04-28 09:16 | PCM.HP.2 ---
<Tenzin Hammonds - Last Filed: 04/28/20 12:35> H&P History of Present Illness - General Date of Service: 04/28/20 Admit Problem/Dx: Admission Diagnosis/Problem Admission Diagnosis/Problem Chest pain Source of Information: Patient History Limitations: Reports: No Limitations - History of Present Illness Initial Comments - Free Text/Narative: Patient is a 69-year-old female with significant past medical history of coronary artery disease, hypertension, hyperlipidemia type 2 diabetes and history of 11 cardiac stents placed back in 2016. Patient woke up this morning around 4:30 AM secondary to chest pressure for which she states taking a dose of her nitroglycerin with prompt resolution of her symptoms. However 30 to 40 minutes later patient experienced similar chest pressure and took 2 additional doses of nitroglycerin. Patient was concerned about chest pain and discomfort and proceeded to the ED. ED course: Chest x-ray negative. Initial troponin x1-. EKG was nominal. Patient was admitted for ACS rule out secondary to signs and symptoms and cardiac history. Bedside: Patient denies any fevers, chills, bodies, palpitation, chest pain, shortness of breath. Denies any shortness of breath at rest and or exertional dyspnea however endors es not being able to walk too far secondary to left knee pain. Left knee pain is due to osteoarthritis and pain is also located in her right big toe secondary to a fungal infection. Otherwise denies any discomfort at this time. Chest Pain Score (Numeric/FACES): 4 - Related Data Allergies/Adverse Reactions: Allergies Allergy/AdvReac Type Severity Reaction Status Date / Time cephalexin Allergy Other Verified 04/28/20 09:50 Iodine and Iodide Containing Allergy Hives Verified 04/28/20 09:50 Produc morphine Allergy Nausea and Verified 04/28/20 09:50 Vomiting Sulfa (Sulfonamide Allergy Other Verified 04/28/20 09:50 Antibiotics) Home Medications: Home Meds Clopidogrel [Plavix] 75 mg PO DAILY #90 tablet 02/03/16 [Rx] atenoloL [Atenolol] 25 mg PO DAILY #90 tablet 02/03/16 [Rx] Nitroglycerin [Nitrostat] 0.4 mg SL Q5M PRN 07/11/16 [History] Aspirin [Adult Low Dose Aspirin EC] 81 mg PO DAILY 02/03/17 [History] Levothyroxine 25 mcg PO ACBREAKFAST 04/17/19 [History] Lisinopril 20 mg PO DAILY 04/17/19 [History] amLODIPine Besylate [Amlodipine Besylate] 10 mg PO DAILY 04/17/19 [History] Ezetimibe 10 mg PO BEDTIME 09/11/19 [History] Cholestyramine/Aspartame [Cholestyramine Light] 1 scoop PO DAILY 14 Days #1 jar 04/28/20 [Rx] Past Medical History HEENT History: Reports: Cataract Cardiovascular History: Reports: CAD, High Cholesterol, Hypertension, AR, Stents, Other (See Below) Other Cardiovascular History: AR 2007 with 3 stents, last stenting 2016. States 11 stens placed Respiratory History: Reports: None Gastrointestinal History: Reports: None Genitourinary History: Reports: UTI, Recurrent [employer] History: Reports: 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 History: Reports: Fracture Other 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 History: hip fx Neurological History: Reports: None Psychiatric History: Reports: None Endocrine/Metabolic History: Reports: Diabetes, Type II, Hypothyroidism Other Endocrine/Metabolic History: "prediabetes" Insulin Pump Model and Mobile Ui Designer: None Hematologic History: Reports: None Immunologic History: Reports: None Oncologic (Cancer) History: Reports: None Dermatologic History: Reports: None - Infectious Disease History Infectious Disease History: Reports: None - Past Surgical History HEENT Surgical History: Reports: Cataract Surgery Cardiovascular Surgical History: Reports: Coronary Artery Stent Other Cardiovascular Surgeries/Procedures: Coronary Artery stents 3 in 2007, 4 in 2011, 4 in 2017 Female Surgical History: Reports: None Social & Family History - Family History Family Medical History: Noncontributory - Tobacco Use Smoking Status *Q: Former Smoker Used Tobacco, but Quit: No - Caffeine Use Caffeine Use: Reports: Coffee, Soda - Recreational Drug Use Recreational Drug Use: No - Living Situation & Occupation Living situation: Reports: Occupation: Employed H&P Review of Systems - Review of Systems: Review Of Systems: See Below General: Reports: No Symptoms HEENT: Reports: No Symptoms Pulmonary: Reports: No Symptoms Cardiovascular: Denies: Chest Pain, Palpitations, Dyspnea on Exertion, Edema Gastrointestinal: Reports: No Symptoms Genitourinary: Reports: No Symptoms 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: Reports: No Symptoms Skin: Reports: No Symptoms Psychiatric: Reports: No Symptoms Neurological: Reports: No Symptoms Immunologic: Reports: No Symptoms Exam - Exam Exam: See Below - Vital Signs Vital Signs: Last Vital Signs Temp 97.3 F 04/28/20 06:45 Pulse 74 04/28/20 07:35 Resp 16 04/28/20 07:35 BP 134/67 04/28/20 07:35 Pulse Ox 99 04/28/20 07:35 Weight: 77.111 kg - Exam Quality Assessment: No: Supplemental Oxygen General: Alert, Oriented, Cooperative HEENT: EOMI, Hearing Intact Neck: Supple, Trachea Midline Lungs: Clear to Auscultation, Normal Respiratory Effort Cardiovascular: Regular Rate, Regular Rhythm GI/Abdominal Exam: Soft, Non-Tender Back Exam: Normal Inspection Extremities: Other (right foot 1st digit :fungal infection ) Skin: Warm, Dry Neurological: Cranial Nerves Intact Neuro Extensive - Mental Status: Alert, Oriented x3 Neuro Extensive - Motor, Sensory, Reflexes: CN II-XII Intact Psychiatric: Alert, Normal Affect, Normal Mood - Patient Data Lab Results Last 24 hrs: Laboratory Results - last 24 hr 04/28/20 04/28/20 04/28/20 Range/Units 06:45 06:45 06:45 WBC 3.86 L (4.0-11.0) K/uL RBC 3.58 L (4.30-5.90) M/uL Hgb 12.5 (12.0-16.0) g/dL Hct 35.0 L (36.0-46.0) % MCV 97.8 (80.0-98.0) fL MCH 34.9 H (27.0-32.0) pg MCHC 35.7 (31.0-37.0) g/dL RDW Std Deviation 46.6 (28.0-62.0) fl RDW Coeff of Heide 13 (11.0-15.0) % Plt Count 140 L (150-400) K/uL MPV 9.10 (7.40-12.00) fL Neut % (Auto) 57.4 (48.0-80.0) % Lymph % (Auto) 28.8 (16.0-40.0) % Victoria % (Auto) 7.3 (0.0-15.0) % Eos % (Auto) 6.2 (0.0-7.0) % Baso % (Auto) 0.3 (0.0-1.5) % Neut # (Auto) 2.2 (1.4-5.7) K/uL Lymph # (Auto) 1.1 (0.6-2.4) K/uL Victoria # (Auto) 0.3 (0.0-0.8) K/uL Eos # (Auto) 0.2 (0.0-0.7) K/uL Baso # (Auto) 0.0 (0.0-0.1) K/uL Nucleated RBC % 0.0 /100WBC Nucleated RBCs # 0 K/uL Sodium 129 L (136-145) mmol/L Potassium 4.7 (3.5-5.1) mmol/L Chloride 96 L (98-107) mmol/L Carbon Dioxide 19.7 L (21.0-32.0) mmol/L BUN 6 L (7.0-18.0) mg/dL Creatinine 1.3 H (0.6-1.0) mg/dL Est Cr Clr Drug Dosing 29.75 mL/min Estimated GFR (MDRD) 40.7 ml/min Glucose 203 H (74-106) mg/dL Calcium 9.3 (8.5-10.1) mg/dL Total Bilirubin 0.4 (0.2-1.0) mg/dL AST 53 H (15-37) IU/L ALT 57 (14-63) IU/L Alkaline Phosphatase 58 (46-116) U/L Troponin I < 0.050 (0.000-0.056) ng/mL Total Protein 7.0 (6.4-8.2) g/dL Albumin 3.9 (3.4-5.0) g/dL Globulin 3.1 (2.6-4.0) g/dL Albumin/Globulin Ratio 1.3 (0.9-1.6) TSH 3rd Generation 4.15 H (0.36-3.74) uIU/mL SARS Virus RNA (PCR) (NEGATIVE) 04/28/20 Range/Units 07:42 WBC (4.0-11.0) K/uL RBC (4.30-5.90) M/uL Hgb (12.0-16.0) g/dL Hct (36.0-46.0) % MCV (80.0-98.0) fL MCH (27.0-32.0) pg MCHC (31.0-37.0) g/dL RDW Std Deviation (28.0-62.0) fl RDW Coeff of Heide (11.0-15.0) % Plt Count (150-400) K/uL MPV (7.40-12.00) fL Neut % (Auto) (48.0-80.0) % Lymph % (Auto) (16.0-40.0) % Victoria % (Auto) (0.0-15.0) % Eos % (Auto) (0.0-7.0) % Baso % (Auto) (0.0-1.5) % Neut # (Auto) (1.4-5.7) K/uL Lymph # (Auto) (0.6-2.4) K/uL Victoria # (Auto) (0.0-0.8) K/uL Eos # (Auto) (0.0-0.7) K/uL Baso # (Auto) (0.0-0.1) K/uL Nucleated RBC % /100WBC Nucleated RBCs # K/uL Sodium (136-145) mmol/L Potassium (3.5-5.1) mmol/L Chloride (98-107) mmol/L Carbon Dioxide (21.0-32.0) mmol/L BUN (7.0-18.0) mg/dL Creatinine (0.6-1.0) mg/dL Est Cr Clr Drug Dosing mL/min Estimated GFR (MDRD) ml/min Glucose (74-106) mg/dL Calcium (8.5-10.1) mg/dL Total Bilirubin (0.2-1.0) mg/dL AST (15-37) IU/L ALT (14-63) IU/L Alkaline Phosphatase (46-116) U/L Troponin I (0.000-0.056) ng/mL Total Protein (6.4-8.2) g/dL Albumin (3.4-5.0) g/dL Globulin (2.6-4.0) g/dL Albumin/Globulin Ratio (0.9-1.6) TSH 3rd Generation (0.36-3.74) uIU/mL SARS Virus RNA (PCR) NEGATIVE (NEGATIVE) Result Diagrams: 04/28/20 06:45 04/28/20 06:45 Sepsis Event Note - Evaluation Sepsis Screening Result: No Definite Risk - Focused Exam Vital Signs: Vital Signs Temp Pulse Resp BP Pulse Ox 04/28/20 07:35 74 16 134/67 99 04/28/20 07:19 78 17 155/68 H 97 04/28/20 06:57 79 17 136/69 97 04/28/20 06:45 97.3 F 82 18 155/65 H 97 Problem List Initiated/Reviewed/Updated: Yes Orders Last 24hrs: Active Orders 24 hr Category Date Time Status Patient Status [ADT] Routine ADT 04/28/20 07:36 Active Cardiac Monitoring [RC] . DIRECTED Care 04/28/20 06:54 Active Pulse Oximetry [RC] ASDIRECTED Care 04/28/20 06:54 Active Telemetry Monitoring [Cardiac Monitoring] [RC] . Care 04/28/20 08:00 Active DIRECTED Heart Healthy Diet [DIET] Diet 04/28/20 Lunch Active TROPONIN I [CHEM] Routine Lab 04/28/20 10:00 Ordered TROPONIN I [CHEM] Stat Lab 04/28/20 13:00 Ordered UA W/MARTA RFLX IF INDICATED [URIN] Routine Lab 04/28/20 08:01 Ordered Aspirin [Halfprin] Med 04/28/20 09:00 Active 81 mg PO DAILY Clopidogrel [Plavix] Med 04/28/20 09:00 Active 75 mg PO DAILY Ezetimibe [Zetia] Med 04/28/20 21:00 Active 10 mg PO BEDTIME Levothyroxine Med 04/29/20 07:30 Active 25 mcg PO ACBREAKFAST Nitroglycerin [Nitrostat] Med 04/28/20 08:04 Active 0.4 mg SL Q5M PRN Sodium Chloride 0.9% [Saline Flush] Med 04/28/20 06:54 Active 10 ml FLUSH ASDIRECTED PRN Sodium Chloride 0.9% [Saline Flush] Med 04/28/20 06:54 Active 2.5 ml FLUSH ASDIRECTED PRN amLODIPine [Norvasc] Med 04/28/20 09:00 Active 10 mg PO DAILY atenoloL [Tenormin] Med 04/28/20 09:00 Active 25 mg PO DAILY lisinopriL [Prinivil] Med 04/28/20 09:00 Active 20 mg PO DAILY Saline Lock Insert [OM.PC] Stat Oth 04/28/20 06:54 Ordered Medication Orders Amlodipine Besylate (Norvasc) 10 mg PO DAILY BEN Aspirin (Halfprin) 81 mg PO DAILY BEN Atenolol (Tenormin) 25 mg PO DAILY BEN Clopidogrel Bisulfate (Plavix) 75 mg PO DAILY BEN Ezetimibe (Zetia) 10 mg PO BEDTIME BEN Levothyroxine Sodium (Levothyroxine) 25 mcg PO ACBREAKFAST BEN Lisinopril (Prinivil) 20 mg PO DAILY BEN Nitroglycerin (Nitrostat) 0.4 mg SL Q5M PRN PRN Reason: Chest Pain Sodium Chloride (Saline Flush) 10 ml FLUSH ASDIRECTED PRN PRN Reason: Keep Vein Open Last Admin: 04/28/20 07:31 Dose: 10 ml Documented by: GLADYS Sodium Chloride (Saline Flush) 2.5 ml FLUSH ASDIRECTED PRN PRN Reason: Keep Vein Open Last Admin: 04/28/20 07:31 Dose: 2.5 ml Documented by: GLADYS Assessment/Plan Comment:: Assessment: 1. Chest pain: Trend troponins, 2 negative so far. shelter monitor stable. no return of chest pain. 2. Hyponatremia: Improved after 1 bag of IVFs. Continue to monitor MONICA as well; continue to monitor with repeat labs ; tolerating PO fluids 3. HTN: Stable Continue Atenolol and Norvasc 4. CAD; No further chest pain. Continue ASA and Plavix. hold statin secondary to previous hx of myalgias, continue ezetimibe VTE prophylaxis: SCDs Dispo: likely later today after third troponin resulted, patient is very eager to go home. <Radha Herrera - Last Filed: 04/29/20 11:38> H&P History of Present Illness - General Admit Problem/Dx: Admission Diagnosis/Problem Admission Diagnosis/Problem Chest pain - History of Present Illness Initial Comments - Free Text/Narative: I performed a history and physical exam of the patient and discussed management with resident. I have reviewed the residents note and agree with documented findings and plan unless otherwise specified in my note. Exam - Vital Signs Vital Signs: Last Vital Signs Temp 36.1 C 04/28/20 16:00 Pulse 63 04/28/20 16:00 Resp 17 04/28/20 16:00 BP 140/65 04/28/20 16:00 Pulse Ox 99 04/28/20 16:00 - Patient Data Lab Results Last 24 hrs: Laboratory Results - last 24 hr 04/28/20 04/28/20 04/28/20 Range/Units 06:45 06:45 12:55 Hemoglobin A1c 6.2 (4.5-6.2) % Troponin I < 0.050 (0.000-0.056) ng/mL Triglycerides 422 H (0-200) mg/dL Cholesterol 195 (50-200) mg/dL HDL Cholesterol 32 L (40-60) mg/dL Cholesterol/HDL Ratio 6.1 H (3.3-6.0) Result Diagrams: 04/28/20 06:45 04/28/20 06:45
[2020-04-28 12:00] LABS: HEMOGLOBIN A1C 6.2 % (4.5-6.2)
[2020-04-28] MEDS ORDERED: Cholestyramine/Aspartame Powder 239.4 GM Jar PO SCH (13:45)
[2020-04-28 16:16] VITALS: BP 140/65; PULSE 63
[2020-04-28] MEDS ORDERED: Insulin Aspart 100 Units/ML 3 ML Pen SUBCUT SCH (17:00)
[2020-04-28] MEDS ORDERED: Ezetimibe 10 MG Tab PO SCH (21:00)
[2020-04-29] MEDS ORDERED: Levothyroxine 25 MCG Tab PO SCH (07:30)
== END 2020-04-28 17:10 | disposition home or self-care (01) ==
LOC: MW.ED 06:43 → MW.MS 07:36
PROVIDERS: ADMIT Student in an Organized Health Care Education/Training Program; ATTEND Student in an Organized Health Care Education/Training Program
DX: R07.89 Other chest pain (principal); E87.1 Hypo-osmolality and hyponatremia; E78.00 Pure hypercholesterolemia, unspecified; I10 Essential (primary) hypertension; E11.65 Type 2 diabetes mellitus with hyperglycemia; E03.9 Hypothyroidism, unspecified; E78.1 Pure hyperglyceridemia; I25.10 Atherosclerotic heart disease of native coronary artery without angina pectoris; Z87.891 Personal history of nicotine dependence; Z88.2 Allergy status to sulfonamides; Z88.1 Allergy status to other antibiotic agents; Z91.041 Radiographic dye allergy status; Z88.5 Allergy status to narcotic agent; Z79.82 Long term (current) use of aspirin; Z79.899 Other long term (current) drug therapy; Z20.828 Contact with and (suspected) exposure to other viral communicable diseases; Z95.5 Presence of coronary angioplasty implant and graft
CPT/HCPCS: 36415; 71046; 80053; 80061; 81003; 83036; 84443; 84484; 85025; 93005; 99285; A9270; U0002; G0378

== ENCOUNTER 2021-07-30 09:56 | Emergency (ER) | payer MEDICARE, MEDICAID ==
[2021-07-30] MEDS ORDERED: Orphenadrine 60 MG/2 ML Inj IM ONE (10:58)
[2021-07-30] MEDS ORDERED: Acetaminophen/HYDROcodone 325-5 MG Tab PO ONE (10:58)
[2021-07-30] MEDS ORDERED: Ketorolac 30 MG/ML SDV IM ONE (10:58)
[2021-07-30 11:24] LABS: CARBON DIOXIDE,CO2 26.5 mmol/L (21.0-32.0); POTASSIUM,K 4.5 mmol/L (3.5-5.1)
--- NOTE | 2021-07-30 11:30 | EDM.PDOC ---
ED HPI GENERAL MEDICAL PROBLEM - General Chief Complaint: Lower Extremity Injury/Pain Stated Complaint: LEFT LEG PAIN Time Seen by Provider: 07/30/21 10:04 Source of Information: Reports: Patient History Limitations: Reports: No Limitations - History of Present Illness INITIAL COMMENTS - FREE TEXT/NARRATIVE: HISTORY AND PHYSICAL: History of present illness: Patient is a 70-year-old female who presents emergency room today with concern of posterior thigh pain does been ongoing for the past 2 months, worsening over the past several days. Patient describes the sensation as sharp and is directly located in the back of her thigh. Patient states it does not radiate into her buttocks, her back, or down her leg. Patient states that it is sharp and comes in waves. Patient states that typically, 2 months ago the waves what occurred just a couple times a day and last just a few seconds and then resolved. Patient states now over the past 2 to 3 days, the waves are coming every 3 to 5 minutes and are painful. Patient denies any trauma/injury to the affected extremity. Patient denies any swelling or redness. Patient denies bruising or any other associated symptoms. Patient denies fever, chills, chest pain, shortness of breath, or cough. Denies headache, neck stiff ness, change in vision, syncope, or near syncope. Denies nausea, vomiting, abdominal pain, diarrhea, constipation, or dysuria. Has not noted any blood in urine or stool. Patient has been eating and drinking appropriately. Review of systems: As per history of present illness and below otherwise all systems reviewed and negative. Past medical history: As per history of present illness and as reviewed below otherwise noncontributory. Surgical history: As per history of present illness and as reviewed below otherwise noncontributory. Social history: See social history for further information Family history: As per history of present illness and as reviewed below otherwise noncontributo ry. Physical exam: General: Patient is alert, oriented, and in no acute distress. Patient sitting comfortably on exam table. Vitals stable and reviewed by me. HEENT: Atraumatic, normocephalic, pupils equal and reactive bilaterally, negative for conjunctival pallor or scleral icterus, mucous membranes moist, throat clear, neck supple, nontender, trachea midline. No drooling or trismus noted. No meningeal signs. No hot potato voice noted. Lungs: Clear to auscultation, breath sounds equal bilaterally, chest nontender. Heart: S1S2, regular rate and rhythm without overt murmur Abdomen: Soft, nondistended, nontender. Negative for masses or hepatosplenomegaly. Negative for costovertebral tenderness. Pelvis: Stable nontender. Genitourinary: Deferred. Rectal: Deferred. Skin: Intact, warm, dry. No lesions or rashes noted. Extremities: She does have point tenderness to palpation of her left mid posterior thigh without erythema, edema, increased warmth, or ecchymosis. Patient has full range of motion of the complete left lower extremity without pain or difficulty. All compartments are soft of the left lower extremity. Dorsalis pedis was grossly intact, however, difficult to find posterior tibialis pulse so bedside Doppler obtained and DP/PT pulses intact. Patient does have full range of motion of the remainder bilateral upper and lower extremities. Patient's skin is warm and not cold, and color appears well. No obvious deformity of the complete spine. No step-offs, crepitus, or point tenderness to palpation of the complete spine. Otherwise, atraumatic, negative for cords or c nursing home pain. Neurovascular unremarkable. Neuro: Awake, alert, oriented. Cranial nerves II through XII unremarkable. Cerebellum unremarkable. Motor and sensory unremarkable throughout. Exam nonfocal. Medical Decision Making: Patient is a 70-year-old female with a past medical history for CAD, hypertension, hyperlipidemia, prior GA, and type 2 diabetes, who presents emergency room today with concern of left posterior mid thigh pain ongoing for 2 months, worsening the past several days. Upon arrival to the ED, patient is vitally stable and well-appearing on exam. She does have specific point tend erness of the posterior mid thigh without any other physical exam findings to explain patient's pain. She does have episodes every 5 minutes that last approximately 20 seconds of what appears to be significant pain, in between these episodes, she is otherwise comfortable. Will obtain basic lab work, assess for possible underlying electrolyte abnormality, obtain x-ray imaging in case of underlying pathology facture, and obtain arterial/venous ultrasound. We will also provide therapeutics and reassess patient. CBC mild derangements are unremarkable. CMP does show an elevation of creatinine at 1.3, this is per patient's baseline in accordance with past lab work comparison. Glucose is elevated at 196. AST elevated in isolation at 56. Otherwise mild derangements of CMP unremarkable. Creatinine kinase is elevated at 459. Patient does appear to have elevated creatinine kinase at 309 in the past, however, will provide a 1 L fluid bolus. Will also obtain urinalysis. Urinalysis is clear Femur x-ray shows no acute findings. Upon reevaluation of patient, she does have improvement of her pain with therapeutics given today in the emergency room. Patient does not have a primary care provider but I encouraged her to establish care with her primary care provider for close follow-up for her leg discomfort. I encouraged her to call today to set up an appointment time. Strict return precautions thoroughly discussed with patient. Discussed importance for follow-up with primary care provider. Voices understanding and is agreeable to plan of care. Denies any further questions or concerns at this time. Diagnostics: CBC, CMP, CPK, Venous/Arterial US, Femur XR LT, urinalysis Therapeutics: Toradol, Norflex, Garfield Prescription: None Impression: Left leg pain, unspecified Plan: 1. You can alternate ibuprofen and Tylenol as directed for pain and discomfort. 2. Follow-up with a primary care provider as discussed. Return to the ED as needed and as discussed. Definitive disposition and diagnosis as appropriate pending reevaluation and review of above. left upper thigh Pain Score (Numeric/FACES): 10 - Related Data Allergies Allergy/AdvReac Type Severity Reaction Status Date / Time cephalexin Allergy Other Verified 07/30/21 10:19 Iodine and Iodide Containing Allergy Hives Verified 07/30/21 10:19 Produc morphine Allergy Nausea and Verified 07/30/21 10:19 Vomiting Sulfa (Sulfonamide Allergy Other Verified 07/30/21 10:19 Antibiotics) Home Meds: Home Meds Clopidogrel [Plavix] 75 mg PO DAILY #90 tablet 02/03/16 [Rx] atenoloL [Atenolol] 25 mg PO DAILY #90 tablet 02/03/16 [Rx] Nitroglycerin [Nitrostat] 0.4 mg SL Q5M PRN 07/11/16 [History] Aspirin [Adult Low Dose Aspirin EC] 81 mg PO DAILY 02/03/17 [History] Levothyroxine 25 mcg PO ACBREAKFAST 04/17/19 [History] Lisinopril 20 mg PO DAILY 04/17/19 [History] amLODIPine Besylate [Amlodipine Besylate] 10 mg PO DAILY 04/17/19 [History] Ezetimibe 10 mg PO BEDTIME 09/11/19 [History] Cholestyramine/Aspartame [Cholestyramine Light] 1 scoop PO DAILY 14 Days #1 jar 04/28/20 [Rx] Past Medical History HEENT History: Reports: Cataract Cardiovascular History: Reports: CAD, High Cholesterol, Hypertension, GA, Stents, Other (See Below) Other Cardiovascular History: GA 2007 with 3 stents, last stenting 2016. States 11 stens placed Respiratory History: Reports: None Gastrointestinal History: Reports: None Genitourinary History: Reports: UTI, Recurrent [employer] History: Reports: 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 History: Reports: Fracture Other 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 History: hip fx Neurological History: Reports: None Psychiatric History: Reports: None Endocrine/Metabolic History: Reports: Diabetes, Type II, Hypothyroidism Other Endocrine/Metabolic History: "prediabetes" Insulin Pump Model and Patent Drafter: None Hematologic History: Reports: None Immunologic History: Reports: None Oncologic (Cancer) History: Reports: None Dermatologic History: Reports: None - Infectious Disease History Infectious Disease History: Reports: Chicken Pox - Past Surgical History Head Surgeries/Procedures: Reports: None HEENT Surgical History: Reports: Cataract Surgery Cardiovascular Surgical History: Reports: Coronary Artery Stent Other Cardiovascular Surgeries/Procedures: Coronary Artery stents 3 in 2007, 4 in 2011, 4 in 2016 Respiratory Surgical History: Reports: None GI Surgical History: Reports: None Female Surgical History: Reports: None Endocrine Surgical History: Reports: None Neurological Surgical History: Reports: None 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 Surgical History: Reports: None Oncologic Surgical History: Reports: None Dermatological Surgical History: Reports: None Social & Family History - Family History Family Medical History: No Pertinent Family History - Caffeine Use Caffeine Use: Reports: None - Recreational Drug Use Recreational Drug Use: No - Living Situation & Occupation Living situation: Reports: Occupation: Employed Review of Systems - Review of Systems Review Of Systems: Comprehensive ROS is negative, except as noted in HPI. ED EXAM, GENERAL - Physical Exam Exam: See Below (see dictation) Course - Vital Signs Last Recorded V/S: Last Vital Signs Temp 97.8 F 07/30/21 14:53 Pulse 62 07/30/21 14:53 Resp 16 07/30/21 14:53 BP 126/54 L 07/30/21 14:53 Pulse Ox 98 07/30/21 14:53 - Orders/Labs/Meds Labs: Laboratory Tests 07/30/21 07/30/21 07/30/21 Range/Units 10:45 10:45 10:45 WBC 6.07 (4.0-11.0) K/uL RBC 3.78 L (4.30-5.90) M/uL Hgb 13.0 (12.0-16.0) g/dL Hct 36.4 (36.0-46.0) % MCV 96.3 (80.0-98.0) fL MCH 34.4 H (27.0-32.0) pg MCHC 35.7 (31.0-37.0) g/dL RDW Std Deviation 47.2 (28.0-62.0) fl RDW Coeff of Heide 14 (11.0-15.0) % Plt Count 201 (150-400) K/uL MPV 9.00 (7.40-12.00) fL Neut % (Auto) 67.9 (48.0-80.0) % Lymph % (Auto) 17.5 (16.0-40.0) % Boundary % (Auto) 6.9 (0.0-15.0) % Eos % (Auto) 7.4 H (0.0-7.0) % Baso % (Auto) 0.3 (0.0-1.5) % Neut # (Auto) 4.1 (1.4-5.7) K/uL Lymph # (Auto) 1.1 (0.6-2.4) K/uL Boundary # (Auto) 0.4 (0.0-0.8) K/uL Eos # (Auto) 0.5 (0.0-0.7) K/uL Baso # (Auto) 0.0 (0.0-0.1) K/uL Nucleated RBC % 0.0 /100WBC Nucleated RBCs # 0 K/uL Sodium 136 (136-145) mmol/L Potassium 4.5 (3.5-5.1) mmol/L Chloride 99 (98-107) mmol/L Carbon Dioxide 26.5 (21.0-32.0) mmol/L BUN 8 (7.0-18.0) mg/dL Creatinine 1.3 H (0.6-1.0) mg/dL Est Cr Clr Drug Dosing 29.34 mL/min Estimated GFR (MDRD) 40.6 ml/min Glucose 196 H (74-106) mg/dL Calcium 9.3 (8.5-10.1) mg/dL Magnesium 2.0 (1.8-2.4) mg/dL Total Bilirubin 0.8 (0.2-1.0) mg/dL AST 56 H (15-37) IU/L ALT 50 (14-63) IU/L Alkaline Phosphatase 69 (46-116) U/L Creatine Kinase 459 H (26-308) U/L Total Protein 7.9 (6.4-8.2) g/dL Albumin 3.8 (3.4-5.0) g/dL Globulin 4.1 H (2.6-4.0) g/dL Albumin/Globulin Ratio 0.9 (0.9-1.6) Urine Color Urine Appearance Urine pH (5.0-8.0) Ur Specific [place] (1.001-1.035) Urine Protein (NEGATIVE) mg/dL Urine Glucose (UA) (NEGATIVE) mg/dL Urine Ketones (NEGATIVE) mg/dL Urine Occult Blood (NEGATIVE) Urine Nitrite (NEGATIVE) Urine Bilirubin (NEGATIVE) Urine Urobilinogen (<2.0) EU/dL Ur Leukocyte Esterase (NEGATIVE) 07/30/21 Range/Units 13:40 WBC (4.0-11.0) K/uL RBC (4.30-5.90) M/uL Hgb (12.0-16.0) g/dL Hct (36.0-46.0) % MCV (80.0-98.0) fL MCH (27.0-32.0) pg MCHC (31.0-37.0) g/dL RDW Std Deviation (28.0-62.0) fl RDW Coeff of Heide (11.0-15.0) % Plt Count (150-400) K/uL MPV (7.40-12.00) fL Neut % (Auto) (48.0-80.0) % Lymph % (Auto) (16.0-40.0) % Boundary % (Auto) (0.0-15.0) % Eos % (Auto) (0.0-7.0) % Baso % (Auto) (0.0-1.5) % Neut # (Auto) (1.4-5.7) K/uL Lymph # (Auto) (0.6-2.4) K/uL Boundary # (Auto) (0.0-0.8) K/uL Eos # (Auto) (0.0-0.7) K/uL Baso # (Auto) (0.0-0.1) K/uL Nucleated RBC % /100WBC Nucleated RBCs # K/uL Sodium (136-145) mmol/L Potassium (3.5-5.1) mmol/L Chloride (98-107) mmol/L Carbon Dioxide (21.0-32.0) mmol/L BUN (7.0-18.0) mg/dL Creatinine (0.6-1.0) mg/dL Est Cr Clr Drug Dosing mL/min Estimated GFR (MDRD) ml/min Glucose (74-106) mg/dL Calcium (8.5-10.1) mg/dL Magnesium (1.8-2.4) mg/dL Total Bilirubin (0.2-1.0) mg/dL AST (15-37) IU/L ALT (14-63) IU/L Alkaline Phosphatase (46-116) U/L Creatine Kinase (26-308) U/L Total Protein (6.4-8.2) g/dL Albumin (3.4-5.0) g/dL Globulin (2.6-4.0) g/dL Albumin/Globulin Ratio (0.9-1.6) Urine Color YELLOW Urine Appearance CLEAR Urine pH 7.0 (5.0-8.0) Ur Specific [place] 1.015 (1.001-1.035) Urine Protein NEGATIVE (NEGATIVE) mg/dL Urine Glucose (UA) NEGATIVE (NEGATIVE) mg/dL Urine Ketones NEGATIVE (NEGATIVE) mg/dL Urine Occult Blood NEGATIVE (NEGATIVE) Urine Nitrite NEGATIVE (NEGATIVE) Urine Bilirubin NEGATIVE (NEGATIVE) Urine Urobilinogen 0.2 (<2.0) EU/dL Ur Leukocyte Esterase NEGATIVE (NEGATIVE) Meds: Medications Discontinued Medications Generic Name Dose Route Start Last Admin Trade Name Freq PRN Reason Stop Dose Admin Hydrocodone Bitart/Acetaminophen 1 tab 07/30/21 10:58 07/30/21 11:34 Acetaminophen/Hydrocodone 325-5 Mg Tab PO 07/30/21 10:59 Not Given ONETIME ONE Hydromorphone HCl 0.5 mg 07/30/21 11:35 07/30/21 12:05 Hydromorphone 2 Mg/Ml Syringe IVPUSH 07/30/21 11:36 0.5 mg ONETIME ONE Administration Sodium Chloride 1,000 mls @ 999 mls/hr 07/30/21 11:31 07/30/21 12:05 Normal Saline IV 07/30/21 12:31 999 mls/hr STAT ONE Administration Ketorolac Tromethamine 15 mg 07/30/21 10:58 07/30/21 11:34 Ketorolac 30 Mg/Ml Sdv IM 07/30/21 10:59 Not Given ONETIME ONE Ketorolac Tromethamine 15 mg 07/30/21 11:31 07/30/21 12:05 Ketorolac 30 Mg/Ml Sdv IVPUSH 07/30/21 11:32 15 mg ONETIME ONE Administration Ondansetron HCl 4 mg 07/30/21 11:33 07/30/21 12:05 Ondansetron 4 Mg/2 Ml Sdv IVPUSH 07/30/21 11:34 4 mg ONETIME ONE Administration Orphenadrine Citrate 60 mg 07/30/21 10:58 07/30/21 12:05 Orphenadrine 60 Mg/2 Ml Inj IM 07/30/21 10:59 60 mg ONETIME ONE Administration Departure - Departure Time of Disposition: 14:11 Disposition: Home, Self-Care 01 Clinical Impression: Leg pain, left - Discharge Information Instructions: Ankle Sprain, [id number] Referrals: PCP,None [Primary Care Provider] - Forms: ED Department Discharge Additional Instructions: The following information is given to patients seen in the emergency department who are being discharged to home. This information is to outline your options for follow-up care. We provide all patients seen in our emergency department with a follow-up referral. The need for follow-up, as well as the timing and circumstances, are variable depending upon the specifics of your emergency department visit. If you don't have a primary care physician on staff, we will provide you with a referral. We always advise you to contact your personal physician following an emergency department visit to inform them of the circumstance of the visit and for follow-up with them and/or the need for any referrals to a consulting specialist. The emergency department will also refer you to a specialist when appropriate. This referral assures that you have the opportunity for follow-up care with a specialist. All of these measure are taken in an effort to provide you with optimal care, which includes your follow-up. Under all circumstances we always encourage you to contact your private physician who remains a resource for coordinating your care. When calling for follow-up care, please make the office aware that this follow-up is from your recent emergency room visit. If for any reason you are refused follow-up, please contact the [facility] Emergency Department at and asked to speak to the emergency department charge nurse. [facility] [address] [place] [id number] [address] 1. You can alternate ibuprofen and Tylenol as directed for pain and discomfort. 2. Follow-up with a primary care provider as discussed. Return to the ED as needed and as discussed. Sepsis Event Note (ED) - Evaluation Sepsis Screening Result: No Definite Risk - Focused Exam Vital Signs: Vital Signs Temp Pulse Resp BP Pulse Ox 07/30/21 14:53 97.8 F 62 16 126/54 L 98 07/30/21 12:23 66 18 129/78 98 07/30/21 10:20 97 F 70 18 142/68 H 97
[2021-07-30] MEDS ORDERED: Sodium Chloride 0.9% 1,000 ML IV ONE (11:31)
[2021-07-30] MEDS ORDERED: Ketorolac 30 MG/ML SDV IVPUSH ONE (11:31)
[2021-07-30] MEDS ORDERED: Ondansetron 4 MG/2 ML SDV IVPUSH ONE (11:33)
[2021-07-30] MEDS ORDERED: HYDROmorphone 2 MG/ML Syringe IVPUSH ONE (11:35)
--- NOTE | 2021-07-30 12:13 | CR ---
Indication: Pain. Technique: Left femur 4 views. Comparison: None. Findings: No acute fracture or dislocation. The hip and knee are normally aligned. Probable old fracture deformity of the left inferior pubic ramus laterally. Degenerative changes of the knee. No knee joint effusion. Vascular calcifications. Soft tissues are unremarkable. Impression: No acute findings. Dictated by Jayshree Brown MD @ 07/30/2021 12:11:44 PM (Electronically Signed)
--- NOTE | 2021-07-30 12:55 | US ---
INDICATION: Left leg pain TECHNIQUE: Ultrasound venous duplex lower left extremity. Compression venous exam was performed using kwong-scale, color Doppler, and spectral Doppler analysis. COMPARISON: April 06, 2020 FINDINGS: Sonographic imaging demonstrates the left common femoral, deep femoral, superficial femoral, popliteal, and calf veins to be fully compressible with normal color Doppler blood flow. IMPRESSION: Normal left lower extremity venous ultrasound, no sign of deep venous thrombosis. Dictated by Aurora Yost MD @ 07/30/2021 12:54:39 PM (Electronically Signed)
--- NOTE | 2021-07-30 13:20 | US ---
INDICATION: Decreased pulse on the left, thigh pain. COMPARISON: None available. TECHNIQUE: Duplex arterial ultrasound examination left lower extremity with 2D and spectral analysis and color Doppler imaging. FINDINGS: LEFTVELOCITYWAVEFORM (cm/sec) [id number] Biphasic SFA 84 Biphasic PFA 63 Biphasic POP61 Biphasic MUSICAL STRING MAKER 69 Biphasic DPA 69 Biphasic BALBINA A34 Monophasic ATILIO 63 Biphasic IMPRESSION: Multiphasic waveforms are seen throughout the left lower extremity without a focal velocity shift to suggest a hemodynamically significant stenosis. Dictated by Chang Ramires MD @ 07/30/2021 1:13:43 PM /Dictated by: Chang Ramires MD @ 07/30/2021 1:01:00 PM (Electronically Signed)
[2021-07-30 15:15] VITALS: BP 126/54; PULSE 62
== END 2021-07-30 14:53 | disposition home or self-care (01) ==
LOC: MW.ED 09:56
DX: M79.605 Pain in left leg (principal); I25.10 Atherosclerotic heart disease of native coronary artery without angina pectoris; I10 Essential (primary) hypertension; I25.2 Old myocardial infarction; E11.9 Type 2 diabetes mellitus without complications; E03.9 Hypothyroidism, unspecified; Z88.1 Allergy status to other antibiotic agents; Z88.5 Allergy status to narcotic agent; Z88.2 Allergy status to sulfonamides; Z91.041 Radiographic dye allergy status; Z79.82 Long term (current) use of aspirin; Z79.02 Long term (current) use of antithrombotics/antiplatelets; Z79.899 Other long term (current) drug therapy
CPT/HCPCS: 36415; 73552; 80053; 81003; 82550; 83735; 85025; 93926; 93971; 96372; 96374; 96375; 99284; J1170; J1885; J2360; J2405; J7030

== ENCOUNTER 2021-11-09 20:42 | Emergency (ER) | payer MEDICARE, MEDICAID ==
[2021-11-09 21:04] VITALS: BP 147/61; PULSE 68
[2021-11-09] MEDS ORDERED: Aspirin 81 MG Tab.Chew PO ONE (21:40)
[2021-11-09 22:20] LABS: BLOOD UREA NITROGEN,BUN 13 mg/dL (7.0-18.0); CARBON DIOXIDE,CO2 30.2 mmol/L (21.0-32.0); CHLORIDE,CL 97 mmol/L (98-107); GLUCOSE RANDOM 186 mg/dL (74-106); POTASSIUM,K 4.6 mmol/L (3.5-5.1); SODIUM,NA 133 mmol/L (136-145)
[2021-11-09] MEDS ORDERED: Lactated Ringers 1,000 ML IV STA (22:41)
== END 2021-11-10 01:55 | disposition home or self-care (01) ==
LOC: MW.ED 20:42
DX: D64.9 Anemia, unspecified (principal); I25.10 Atherosclerotic heart disease of native coronary artery without angina pectoris; E03.9 Hypothyroidism, unspecified; I10 Essential (primary) hypertension; I25.2 Old myocardial infarction; E11.9 Type 2 diabetes mellitus without complications; Z95.5 Presence of coronary angioplasty implant and graft; Z88.1 Allergy status to other antibiotic agents; Z88.5 Allergy status to narcotic agent; Z88.2 Allergy status to sulfonamides; Z91.048 Other nonmedicinal substance allergy status; Z79.82 Long term (current) use of aspirin; Z79.02 Long term (current) use of antithrombotics/antiplatelets; Z79.899 Other long term (current) drug therapy
CPT/HCPCS: 36415; 71045; 80053; 83735; 84484; 85025; 85610; 99284; A9270; J7120; 99283

== ENCOUNTER 2021-12-05 07:00 | Day surgery (SDC) | payer MEDICARE, MEDICAID ==
[2021-12-05] MEDS ORDERED: Midazolam 1 MG/ML 2 ML SDV ONE (07:22)
[2021-12-05] MEDS ORDERED: Propofol 200 MG/20 ML SDV ONE ×2 (07:22→09:49)
[2021-12-05] MEDS ORDERED: fentaNYL 100 MCG/2 ML SDV ONE (07:22)
[2021-12-05] MEDS ORDERED: Lactated Ringers 1,000 ML IV SCH ×2 (07:30→09:45)
[2021-12-05] MEDS ORDERED: ePHEDrine 50 MG/ML SDV ONE (09:13)
[2021-12-05] MEDS ORDERED: Glycopyrrolate 0.2 MG/ML SDV ONE (09:14)
[2021-12-05] MEDS ORDERED: fentaNYL 250 MCG/5 ML SDV ONE ×3 (09:50→12:04)
[2021-12-05 09:56] VITALS: PULSE 86
[2021-12-05] MEDS ORDERED: Ketamine HCL/NACL, ISO-OSM 50 MG/5 ML Syringe ONE (11:57)
[2021-12-05 12:10] VITALS: BP 90/50
== END 2021-12-05 10:45 | disposition home or self-care (01) ==
LOC: MW.SDS 07:00
PROVIDERS: ATTEND Surgery
DX: K92.1 Melena (principal); K29.50 Unspecified chronic gastritis without bleeding; K20.90 Esophagitis, unspecified without bleeding; D50.0 Iron deficiency anemia secondary to blood loss (chronic); I25.10 Atherosclerotic heart disease of native coronary artery without angina pectoris; N18.9 Chronic kidney disease, unspecified; I12.9 Hypertensive chronic kidney disease with stage 1 through stage 4 chronic kidney disease, or unspecified chronic kidney disease; E87.1 Hypo-osmolality and hyponatremia; E03.9 Hypothyroidism, unspecified; E78.00 Pure hypercholesterolemia, unspecified; I25.2 Old myocardial infarction; R73.03 Prediabetes; Z88.2 Allergy status to sulfonamides; Z88.8 Allergy status to other drugs, medicaments and biological substances; Z79.899 Other long term (current) drug therapy; Z79.890 Hormone replacement therapy; Z79.82 Long term (current) use of aspirin; Z98.890 Other specified postprocedural states; Z87.891 Personal history of nicotine dependence; Z88.5 Allergy status to narcotic agent
CPT/HCPCS: 43239; 45380; J2370; J2704; J3010; J3490; J7120; 00813; 88305; 88342; 99100; J2250

== ENCOUNTER 2023-02-10 23:07 | Emergency (ER) | payer MEDICARE, MEDICAID ==
[2023-02-10] MEDS ORDERED: Aspirin 81 MG Tab.EC PO ONE (23:34)
[2023-02-10] MEDS ORDERED: Nitroglycerin 0.4 MG Tab.SL SL PRN (23:34)
[2023-02-10 23:41] LABS: BASOPHILS PERCENT AUTO 0.4 % (0.0-1.5); EOSINOPHILS ABSOLUTE AUTO 1.1 K/uL (0.0-0.7); EOSINOPHILS PERCENT AUTO 15.1 % (0.0-7.0); HEMATOCRIT 32.5 % (36.0-46.0); HEMOGLOBIN 11.6 g/dL (12.0-16.0); LYMPHOCYTES ABSOLUTE AUTO 2.3 K/uL (0.6-2.4); LYMPHOCYTES PERCENT AUTO 32.1 % (16.0-40.0); MEAN CORPUSCULAR HEMOGLOBIN 32.6 pg (27.0-32.0); MEAN CORPUSCULAR HGB CONC 35.7 g/dL (31.0-37.0); MEAN CORPUSCULAR VOLUME 91.3 fL (80.0-98.0); MONOCYTES ABSOLUTE AUTO 0.5 K/uL (0.0-0.8); MONOCYTES PERCENT AUTO 7.2 % (0.0-15.0); NEUTROPHILS ABSOLUTE AUTO 3.2 K/uL (1.4-5.7); NEUTROPHILS PERCENT AUTO 45.2 % (48.0-80.0); NRBC ABSOLUTE 0 K/uL; PLATELET COUNT,PLT 161 K/uL (150-400); RED BLOOD CELL COUNT 3.56 M/uL (4.30-5.90)
[2023-02-10] MEDS ORDERED: Aspirin 81 MG Tab.Chew ONE (23:46)
[2023-02-10 23:49] LABS: INR 0.96 (0.86-1.11); PTT,PARTIAL THROMBOPLSTIN TIME 25.8 SEC (23.9-30.7)
[2023-02-10] MEDS ORDERED: Aspirin 81 MG Tab.Chew PO ONE (23:50)
[2023-02-11 00:08] LABS: CARBON DIOXIDE,CO2 25.2 mmol/L (21.0-32.0); CREATININE 1.7 mg/dL (0.6-1.0); EST CRCL DRUG DOSING (CG) 27.31 mL/min; MAGNESIUM 1.9 mg/dL (1.8-2.4); POTASSIUM,K 3.3 mmol/L (3.5-5.1)
[2023-02-11] MEDS ORDERED: Lactated Ringers 500 ML IV ONE (00:24)
[2023-02-11 02:07] VITALS: BP 110/49; PULSE 70
== END 2023-02-11 02:07 | disposition home or self-care (01) ==
LOC: MW.ED 23:07
DX: R07.89 Other chest pain (principal); I10 Essential (primary) hypertension; I25.2 Old myocardial infarction; E03.9 Hypothyroidism, unspecified; Z88.2 Allergy status to sulfonamides; Z88.1 Allergy status to other antibiotic agents; Z88.5 Allergy status to narcotic agent; Z91.041 Radiographic dye allergy status; Z79.899 Other long term (current) drug therapy
CPT/HCPCS: 36415; 71045; 80048; 83735; 84484; 85025; 85610; 85730; 93005; 96360; 99285; A9270; J7120; 93010; 99283

== ENCOUNTER 2024-04-01 10:40 | Emergency (ER) | payer MEDICARE, MEDICAID ==
[2024-04-01 11:08] LABS: BASOPHILS ABSOLUTE AUTO 0.02 K/uL (0.00-0.20); BASOPHILS PERCENT AUTO 0.2 % (0.0-1.0); EOSINOPHILS ABSOLUTE AUTO 0.15 K/uL (0.00-0.45); EOSINOPHILS PERCENT AUTO 1.6 % (0.0-6.0); HEMOGLOBIN 13.5 g/dL (12.0-16.0); IMMATURE GRAN ABSOLUTE AUTO 0.05 K/uL (0.00-0.05); IMMATURE GRAN PERCENT AUTO 0.5 % (0.0-0.4); LYMPHOCYTES ABSOLUTE AUTO 0.77 K/uL (1.00-4.80); LYMPHOCYTES PERCENT AUTO 8.3 % (24.0-44.0); MEAN CORPUSCULAR HEMOGLOBIN 32.9 pg (28.0-32.0); MEAN CORPUSCULAR HGB CONC 36.5 g/dL (32.0-36.0); MEAN CORPUSCULAR VOLUME 90.2 fL (83.0-99.0); MEAN PLATELET VOLUME 8.8 fL (9.4-12.3); MONOCYTES ABSOLUTE AUTO 0.53 K/uL (0.00-0.80); MONOCYTES PERCENT AUTO 5.7 % (0.0-8.0); NEUTROPHILS ABSOLUTE AUTO 7.75 K/uL (1.80-7.70); NEUTROPHILS PERCENT AUTO 83.7 % (41.0-71.0); PLATELET COUNT,PLT 165 K/uL (150-400); WHITE BLOOD CELL COUNT,WBC 9.27 K/uL (3.9-11.3)
[2024-04-01 11:10] LABS: APPEARANCE,URINE CLOUDY; BILIRUBIN,URINE NEGATIVE (NEGATIVE); COLOR,URINE YELLOW; GLUCOSE,URINE >=1000 mg/dL (NEGATIVE); KETONES,URINE NEGATIVE (NEGATIVE); LEUKOCYTE ESTERASE,URINE MODERATE (NEGATIVE); NITRITE,URINE POSITIVE (NEGATIVE); OCCULT BLOOD,URINE MODERATE (NEGATIVE); PROTEIN,URINE 30 mg/dL (NEGATIVE); UROBILINOGEN,URINE 0.2 EU/dL (<2.0)
[2024-04-01 11:23] LABS: EPITHELIAL CELLS,URINE RARE (NONE-FEW); RBC,URINE 0-2 (0-2/HPF); WBC,URINE 50-75 (0-5/HPF)
[2024-04-01 11:24] LABS: BACTERIA,URINE 2+ (NEGATIVE); MUCUS,URINE LIGHT (NONE-MOD)
[2024-04-01 11:42] LABS: A/G RATIO 1.1 (0.9-1.6); ALBUMIN 3.8 g/dL (3.4-5.0); BILIRUBIN TOTAL 0.7 mg/dL (0.2-1.0); CARBON DIOXIDE,CO2 26.2 mmol/L (21.0-32.0); CREATININE 1.5 mg/dL (0.6-1.0); EST CRCL DRUG DOSING (CG) 24.35 mL/min; POTASSIUM,K 4.2 mmol/L (3.5-5.1); PROTEIN TOTAL,TP 7.2 g/dL (6.4-8.2)
[2024-04-01] MEDS: Nitrofurantoin Monohydrate/Macrocrystalline 100 MG Cap PO ONE (13:21)
[2024-04-01] MEDS: Sodium Chloride 0.9% 10 ML Syringe FLUSH PRN (13:22)
[2024-04-01] MEDS: Sodium Chloride 0.9% 2.5 ML Syringe FLUSH PRN (13:22)
[2024-04-01 13:26] VITALS: BP 168/78; PULSE 74
== END 2024-04-01 13:27 | disposition home or self-care (01) ==
LOC: MW.ED 10:40
DX: N39.0 Urinary tract infection, site not specified (principal); R07.9 Chest pain, unspecified; I10 Essential (primary) hypertension; I25.10 Atherosclerotic heart disease of native coronary artery without angina pectoris; I25.2 Old myocardial infarction; E03.9 Hypothyroidism, unspecified; Z95.5 Presence of coronary angioplasty implant and graft; Z79.899 Other long term (current) drug therapy; Z79.890 Hormone replacement therapy; Z88.1 Allergy status to other antibiotic agents; Z88.2 Allergy status to sulfonamides; Z88.5 Allergy status to narcotic agent; Z91.041 Radiographic dye allergy status
CPT/HCPCS: 36415; 71045; 80053; 81001; 83690; 83880; 84484; 85025; 93005; 99285; A9270; J3490; 93010; 99282

== ENCOUNTER 2024-04-27 20:04 | Emergency (ER) | payer MEDICARE, MEDICAID ==
[2024-04-27 20:51] LABS: BASOPHILS ABSOLUTE AUTO 0.02 K/uL (0.00-0.20); BASOPHILS PERCENT AUTO 0.2 % (0.0-1.0); EOSINOPHILS ABSOLUTE AUTO 0.31 K/uL (0.00-0.45); HEMOGLOBIN 12.9 g/dL (12.0-16.0); IMMATURE GRAN ABSOLUTE AUTO 0.02 K/uL (0.00-0.05); IMMATURE GRAN PERCENT AUTO 0.2 % (0.0-0.4); LYMPHOCYTES ABSOLUTE AUTO 0.44 K/uL (1.00-4.80); LYMPHOCYTES PERCENT AUTO 4.3 % (24.0-44.0); MEAN CORPUSCULAR HEMOGLOBIN 32.7 pg (28.0-32.0); MEAN CORPUSCULAR HGB CONC 35.8 g/dL (32.0-36.0); MEAN CORPUSCULAR VOLUME 91.4 fL (83.0-99.0); MEAN PLATELET VOLUME 8.8 fL (9.4-12.3); MONOCYTES ABSOLUTE AUTO 0.43 K/uL (0.00-0.80); MONOCYTES PERCENT AUTO 4.2 % (0.0-8.0); NEUTROPHILS PERCENT AUTO 88.1 % (41.0-71.0); PLATELET COUNT,PLT 132 K/uL (150-400); RED BLOOD CELL COUNT 3.94 M/uL (4.10-5.30); WHITE BLOOD CELL COUNT,WBC 10.22 K/uL (3.9-11.3)
[2024-04-27] MEDS: Sodium Chloride 0.9% 1,000 ML IV ONE (21:13)
[2024-04-27 21:25] LABS: A/G RATIO 1.3 (0.9-1.6); ALBUMIN 4.1 g/dL (3.4-5.0); BILIRUBIN TOTAL 0.9 mg/dL (0.2-1.0); CARBON DIOXIDE,CO2 22.3 mmol/L (21.0-32.0); CREATININE 1.7 mg/dL (0.6-1.0); EST CRCL DRUG DOSING (CG) 26.92 mL/min; POTASSIUM,K 4.3 mmol/L (3.5-5.1); PROTEIN TOTAL,TP 7.2 g/dL (6.4-8.2)
[2024-04-27 23:45] LABS: LIPASE 82 U/L (16-77)
[2024-04-28 00:30] VITALS: BP 156/68; PULSE 73
== END 2024-04-28 00:15 | disposition home or self-care (01) ==
LOC: MW.ED 20:04
DX: R11.2 Nausea with vomiting, unspecified (principal); T36.0X5A Adverse effect of penicillins, initial encounter; T36.1X5A Adverse effect of cephalosporins and other beta-lactam antibiotics, initial encounter; I10 Essential (primary) hypertension; I25.10 Atherosclerotic heart disease of native coronary artery without angina pectoris; I25.2 Old myocardial infarction; E03.9 Hypothyroidism, unspecified; Z95.5 Presence of coronary angioplasty implant and graft; Z79.82 Long term (current) use of aspirin; Z79.890 Hormone replacement therapy; Z79.899 Other long term (current) drug therapy; Z88.0 Allergy status to penicillin; Z88.1 Allergy status to other antibiotic agents; Z88.2 Allergy status to sulfonamides; Z88.5 Allergy status to narcotic agent; Z91.041 Radiographic dye allergy status; Z75.8 Other problems related to medical facilities and other health care; R30.0 Dysuria; N39.0 Urinary tract infection, site not specified
CPT/HCPCS: 36415; 71045; 80053; 81001; 83690; 84484; 85025; 87086; 87088; 87186; 93005; 96360; 99213; 99285; J7030; 93010; 99282

== ENCOUNTER 2024-09-15 17:43 | Emergency (ER) | payer MEDICAID, MEDICARE ==
[2024-09-15 18:47] LABS: BASOPHILS ABSOLUTE AUTO 0.02 K/uL (0.00-0.20); BASOPHILS PERCENT AUTO 0.2 % (0.0-1.0); EOSINOPHILS ABSOLUTE AUTO 0.33 K/uL (0.00-0.45); EOSINOPHILS PERCENT AUTO 3.8 % (0.0-6.0); HEMOGLOBIN 11.8 g/dL (12.0-16.0); IMMATURE GRAN ABSOLUTE AUTO 0.02 K/uL (0.00-0.05); IMMATURE GRAN PERCENT AUTO 0.2 % (0.0-0.4); LYMPHOCYTES ABSOLUTE AUTO 1.11 K/uL (1.00-4.80); LYMPHOCYTES PERCENT AUTO 12.7 % (24.0-44.0); MEAN CORPUSCULAR HEMOGLOBIN 32.2 pg (28.0-32.0); MEAN CORPUSCULAR HGB CONC 35.8 g/dL (32.0-36.0); MEAN CORPUSCULAR VOLUME 90.2 fL (83.0-99.0); MEAN PLATELET VOLUME 8.7 fL (9.4-12.3); MONOCYTES ABSOLUTE AUTO 0.52 K/uL (0.00-0.80); MONOCYTES PERCENT AUTO 5.9 % (0.0-8.0); NEUTROPHILS ABSOLUTE AUTO 6.74 K/uL (1.80-7.70); NEUTROPHILS PERCENT AUTO 77.2 % (41.0-71.0); PLATELET COUNT,PLT 160 K/uL (150-400); RED BLOOD CELL COUNT 3.66 M/uL (4.10-5.30); WHITE BLOOD CELL COUNT,WBC 8.74 K/uL (3.9-11.3)
[2024-09-15 19:22] LABS: A/G RATIO 1.1 (0.9-1.6); ALBUMIN 3.9 g/dL (3.4-5.0); BILIRUBIN TOTAL 0.8 mg/dL (0.2-1.0); CALCIUM 9.3 mg/dL (8.5-10.1); CARBON DIOXIDE,CO2 22.3 mmol/L (21.0-32.0); CREATININE 1.8 mg/dL (0.6-1.0); EST CRCL DRUG DOSING (CG) 19.99 mL/min; MAGNESIUM 2.2 mg/dL (1.8-2.4); POTASSIUM,K 4.7 mmol/L (3.5-5.1); PROTEIN TOTAL,TP 7.4 g/dL (6.4-8.2)
[2024-09-15 20:24] VITALS: BP 142/70; PULSE 68
== END 2024-09-15 20:13 | disposition home or self-care (01) ==
LOC: MW.ED 17:43
DX: R07.9 Chest pain, unspecified (principal); I25.10 Atherosclerotic heart disease of native coronary artery without angina pectoris; I10 Essential (primary) hypertension; I25.2 Old myocardial infarction; E03.9 Hypothyroidism, unspecified; Z95.5 Presence of coronary angioplasty implant and graft; Z88.0 Allergy status to penicillin; Z88.1 Allergy status to other antibiotic agents; Z88.2 Allergy status to sulfonamides; Z88.5 Allergy status to narcotic agent; Z88.8 Allergy status to other drugs, medicaments and biological substances; Z91.040 Latex allergy status; Z79.82 Long term (current) use of aspirin; Z79.890 Hormone replacement therapy; Z79.899 Other long term (current) drug therapy; Z75.8 Other problems related to medical facilities and other health care
CPT/HCPCS: 36415; 71045; 71045-26; 80053; 83690; 83735; 83880; 84484; 85025; 93005; 93010; 99283; 99285

== ENCOUNTER 2024-12-03 19:31 | Emergency (ER) | payer MEDICARE, MEDICAID ==
[2024-12-03 19:42] LABS: BASOPHILS ABSOLUTE AUTO 0.03 K/uL (0.00-0.20); BASOPHILS PERCENT AUTO 0.5 % (0.0-1.0); EOSINOPHILS ABSOLUTE AUTO 0.47 K/uL (0.00-0.45); EOSINOPHILS PERCENT AUTO 7.7 % (0.0-6.0); HEMATOCRIT 33.6 % (37.0-47.0); HEMOGLOBIN 11.6 g/dL (12.0-16.0); IMMATURE GRAN ABSOLUTE AUTO 0.03 K/uL (0.00-0.05); IMMATURE GRAN PERCENT AUTO 0.5 % (0.0-0.4); LYMPHOCYTES ABSOLUTE AUTO 1.51 K/uL (1.00-4.80); LYMPHOCYTES PERCENT AUTO 24.9 % (24.0-44.0); MEAN CORPUSCULAR HEMOGLOBIN 32.8 pg (28.0-32.0); MEAN CORPUSCULAR HGB CONC 34.5 g/dL (32.0-36.0); MEAN CORPUSCULAR VOLUME 94.9 fL (83.0-99.0); MEAN PLATELET VOLUME 8.8 fL (9.4-12.3); MONOCYTES ABSOLUTE AUTO 0.42 K/uL (0.00-0.80); MONOCYTES PERCENT AUTO 6.9 % (0.0-8.0); NEUTROPHILS ABSOLUTE AUTO 3.61 K/uL (1.80-7.70); NEUTROPHILS PERCENT AUTO 59.5 % (41.0-71.0); NRBC ABSOLUTE 0.02 K/uL (0.00-0.02); NRBC PERCENT 0.3 /100WBC (0.0-0.2); PLATELET COUNT,PLT 157 K/uL (150-400); RED BLOOD CELL COUNT 3.54 M/uL (4.10-5.30); WHITE BLOOD CELL COUNT,WBC 6.07 K/uL (3.9-11.3)
[2024-12-03] MEDS: Morphine 4 MG/ML Syringe IVPUSH ONE (19:57)
[2024-12-03] MEDS: Ondansetron 4 MG/2 ML SDV IVPUSH ONE (19:58)
[2024-12-03] MEDS: Alum Hydrox/Mag Hydrox/Simeth 15 ML, Lidocaine 2% 5 ML PO ONE (19:58)
[2024-12-03 20:02] LABS: INR 0.97 (0.86-1.11); PTT,PARTIAL THROMBOPLSTIN TIME 22.4 SEC (23.9-30.7)
[2024-12-03 20:22] LABS: A/G RATIO 1.2 (0.9-1.6); ALBUMIN 4.1 g/dL (3.4-5.0); BILIRUBIN TOTAL 1.3 mg/dL (0.2-1.0); CALCIUM 8.9 mg/dL (8.5-10.1); CARBON DIOXIDE,CO2 27.6 mmol/L (21.0-32.0); EST CRCL DRUG DOSING (CG) 19.19 mL/min; POTASSIUM,K 4.1 mmol/L (3.5-5.1); PROTEIN TOTAL,TP 7.4 g/dL (6.4-8.2)
[2024-12-04 00:07] VITALS: BP 148/74; PULSE 72
== END 2024-12-03 23:35 | disposition home or self-care (01) ==
LOC: MERGE 19:31 → MW.ED 19:31
DX: K21.9 Gastro-esophageal reflux disease without esophagitis (principal); R79.89 Other specified abnormal findings of blood chemistry; Z95.5 Presence of coronary angioplasty implant and graft; Z88.2 Allergy status to sulfonamides; Z79.899 Other long term (current) drug therapy; Z75.3 Unavailability and inaccessibility of health-care facilities
CPT/HCPCS: 36415; 71045; 74176; 80053; 83690; 83735; 83880; 84484; 85025; 85610; 85730; 87428; 93005; 96374; 96375; 99285; A9270; J2270; J2405; 93010; 99284